=== PATIENT | female | born 1995 | race Caucasian/White ===

== ENCOUNTER 2016-10-29 20:56 | Emergency (ER) | payer BC ==
[2016-10-29 21:06] VITALS: O2SAT 98
[2016-10-29] MEDS ORDERED: Sodium Chloride 0.9% 1000 ML 1,000 ML IV STA (21:13)
--- NOTE | 2016-10-29 21:13 | ERPHSYRPT ---
- History of Present Illness Time Seen by Provider: 10/29/16 21:07 Source: patient Exam Limitations: no limitations Patient Subjective Stated Complaint: PT STS SICK X 1 WEEK, SORE THROAT, FEVER, EAR PAIN, CONGESTION, DRY COUGH, FEELING DIZZY-OFF BALANCE. STS UNABLE TO EAT OR DRINK DUE TO THROAT PAIN. DESCRIBES SAND PAPER - RATES PAIN 4/10. Triage Nursing Assessment: PT ALERT, ORIENTED, ANSWERS ALL QUESTIONS APPROPRIATELY. SKIN P/W/D, RESPS NON-LABORED. LUNG SOUNDS CTA BILAT NON- LABORED. HEART RRR UPON AUSCULTATION - TACHYCARDIC 130'S. THROAT APPEARS RED, NO EXUDATE NOTED. ORAL MUCOSA MOIST. Physician History: FOR THE PAST WEEK PT HAS HAD A SORE THROAT, NON-PRODUCTIVE COUGH, DIZZINESS, EARACHES, SUBJECTIVE FEVER AND OCCASIONAL FRONTAL HEADACHE. Allergies/Adverse Reactions: sulfamethoxazole [From Bactrim DS] Allergy (Severe, Verified 10/29/16 21:13) RAPID HEART RATE trimethoprim [From Bactrim DS] Allergy (Severe, Verified 10/29/16 21:13) RAPID HEART RATE diphenhydramine HCl [From Benadryl] Allergy (Intermediate, Verified 10/29/16 21: 13) "OVER-REACTS AND ACTS DRUNK" Home Medications: No Home Meds 1 [facility] 05/26/16 [History] Hx Tetanus, Diphtheria Vaccination/Date Given: Yes Hx Influenza Vaccination/Date Given: No Hx Pneumococcal Vaccination/Date Given: No - Review of Systems Constitutional: Fever Ears, Nose, & Throat: Ear Pain, Throat Pain Respiratory: Cough Neurological: Dizziness, Headache All Other Systems: Reviewed and Negative - Past Medical History Pertinent Past Medical History: Yes Neurological History: No Pertinent History ENT History: No Pertinent History Cardiac History: No Pertinent History Respiratory History: No Pertinent History Endocrine Medical History: No Pertinent History Musculoskeletal History: No Pertinent History GI Medical History: No Pertinent History History: No Pertinent History Psycho-Social History: Bipolar, Panic Disorder Other Medical History: EPTEIN RIDLEY VIRUS, HEART MURMUR - Past Surgical History Past Surgical History: No - Social History Smoking Status: Never smoker Exposure to second hand smoke: No Alcohol Use: None Drug Use: none Patient Lives Alone: No Significant Family History: no pertinent family hx - Female History Hx Last Menstrual Period: 06/2016 Hx Now: No (possibly; late; no protection; will follow up with LMD for testing) - Nursing Vital Signs Nursing Vital Signs: Initial Vital Signs Temperature 98.0 F Temperature Source Oral Pulse Rate 101 Respiratory Rate 18 Blood Pressure [Right Arm] 139/64 Pain Intensity 0 - Physical Exam General Appearance: alert Eye Exam: PERRL/EOMI, eyes nml inspection Ears, Nose, Throat Exam: TMs normal, dry mucous membranes, pharyngeal erythema Neck Exam: normal inspection Respiratory Exam: lungs clear Cardiovascular Exam: tachycardia Gastrointestinal/Abdomen Exam: soft, normal bowel sounds Back Exam: normal range of motion Extremity Exam: normal inspection, No pedal edema Neurologic Exam: alert, cooperative Skin Exam: warm, dry SpO2 Interpretation: normal SpO2: 98 Oxygen Delivery: Room Air - Course Nursing assessment & vital signs reviewed: Yes Ordered Tests: Active Orders 24 hr Category Date Time Status IV Insertion STAT Care 10/29/16 21:13 Active AMYLASE Stat Lab 10/29/16 21:45 Completed CBC W DIFF Stat Lab 10/29/16 21:45 Completed CMP Stat Lab 10/29/16 21:45 Completed CULTURE, THROAT Stat Lab 10/29/16 21:45 Received HCG QUALITATIVE,SERUM Stat Lab 10/29/16 21:45 Completed LIPASE Stat Lab 10/29/16 21:45 Completed MAGNESIUM Stat Lab 10/29/16 21:45 Completed [place] Screen Stat Lab 10/29/16 21:45 Completed STREP SCREEN-BETA A Stat Lab 10/29/16 21:45 Completed UA Stat Lab 10/29/16 21:13 Ordered Medication Summary Generic Name Dose Route Start Last Admin Trade Name Freq PRN Reason Stop Dose Admin Magnesium Oxide 400 mg 10/30/16 10:00 10/29/16 22:27 Mag-Ox 400 PO 11/29/16 09:59 400 mg BID YADY Administration Discontinued Medications Generic Name Dose Route Start Last Admin Trade Name Freq PRN Reason Stop Dose Admin Ceftriaxone Sodium/Dextrose 50 mls @ 100 mls/hr 10/29/16 21:15 10/29/16 21:21 Rocephin 1 Gm-D5w 50 Ml Bag IV 10/29/16 21:44 100 mls/hr STAT ONE Administration Sodium Chloride 1,000 mls @ 999 mls/hr 10/29/16 21:13 10/29/16 21:21 Sodium Chloride 0.9% 1000 Ml IV 10/29/16 22:13 999 mls/hr .Q1H1M STA Administration Sodium Chloride Confirm 10/29/16 21:20 Sodium Chloride 0.9% 1000 Ml Administered 10/29/16 21:21 Dose 1,000 mls @ ud .ROUTE .STK-MED ONE Ceftriaxone Sodium/Dextrose Confirm 10/29/16 21:20 Rocephin 1 Gm-D5w 50 Ml Bag Administered 10/29/16 21:21 Dose 50 mls @ ud IV .STK-MED ONE Ketorolac Tromethamine 30 mg 10/29/16 21:17 10/29/16 21:20 Toradol 30 Mg Injection IV 10/29/16 21:18 30 mg STAT ONE Administration Ketorolac Tromethamine Confirm 10/29/16 21:19 Toradol 30 Mg Injection Administered 10/29/16 21:20 Dose 30 mg .ROUTE .STK-MED ONE Magnesium Oxide Confirm 10/29/16 22:25 Mag-Ox 400 Administered 10/29/16 22:26 Dose 400 mg .ROUTE .STK-MED ONE Lab/Rad Data: Laboratory Result Diagrams 10/29/16 21:45 10/29/16 21:45 Laboratory Results 10/29/16 10/29/16 10/29/16 Range/Units 21:45 21:45 21:45 WBC (4.0-10.5) K/mm3 RBC (4.1-5.4) M/mm3 Hgb (12.0-16.0) gm/dl Hct (35-47) % MCV (78-100) fl MCH (26-32) pg MCHC (32-36) g/dl RDW (11.5-14.0) % Plt Count (150-450) K/mm3 MPV (6-9.5) fl Gran % (36.0-66.0) % Lymphocytes % (24.0-44.0) % Monocytes % (0.0-12.0) % Eosinophils % (0.00-5.0) % Basophils % (0.0-0.4) % Basophils # (0-0.4) Sodium (136-145) mEq/L Potassium (3.5-5.1) mEq/L Chloride (98-107) mEq/L Carbon Dioxide (21-32) mEq/L Anion Gap (5-15) MEQ/L BUN (9-20) mg/dL Creatinine (0.55-1.30) mg/dl Estimated GFR ML/MIN Glucose (70-110) MG/DL Calcium (8.5-10.1) mg/dL Magnesium (1.8-2.4) mg/dL Total Bilirubin (0.2-1.0) mg/dL AST (15-37) U/L ALT (12-78) U/L Alkaline Phosphatase (46-116) U/L Serum Total Protein (6.4-8.2) gm/dL Albumin (3.4-5.0) g/dL Amylase (25-115) U/L Lipase (73-393) U/L Serum , Qual NEGATIVE (Negative) Monoscreen NEGATIVE (Negative) Streptococcus Screen NEGATIVE (Negative) 10/29/16 10/29/16 Range/Units 21:45 21:45 WBC 12.1 H (4.0-10.5) K/mm3 RBC 4.81 (4.1-5.4) M/mm3 Hgb 13.8 (12.0-16.0) gm/dl Hct 42.1 (35-47) % MCV 87.5 (78-100) fl MCH 28.7 (26-32) pg MCHC 32.8 (32-36) g/dl RDW 13.0 (11.5-14.0) % Plt Count 385 (150-450) K/mm3 MPV 8.8 (6-9.5) fl Gran % 67.8 H (36.0-66.0) % Lymphocytes % 20.7 L (24.0-44.0) % Monocytes % 9.6 (0.0-12.0) % Eosinophils % 1.7 (0.00-5.0) % Basophils % 0.2 (0.0-0.4) % Basophils # 0.02 (0-0.4) Sodium 141 (136-145) mEq/L Potassium 4.0 (3.5-5.1) mEq/L Chloride 104 (98-107) mEq/L Carbon Dioxide 24.2 (21-32) mEq/L Anion Gap 17.2 H (5-15) MEQ/L BUN 9 (9-20) mg/dL Creatinine 0.77 (0.55-1.30) mg/dl Estimated GFR > 60 ML/MIN Glucose 95 (70-110) MG/DL Calcium 9.0 (8.5-10.1) mg/dL Magnesium 1.7 L (1.8-2.4) mg/dL Total Bilirubin 0.2 (0.2-1.0) mg/dL AST 15 (15-37) U/L ALT 30 (12-78) U/L Alkaline Phosphatase 107 (46-116) U/L Serum Total Protein 7.6 (6.4-8.2) gm/dL Albumin 3.8 (3.4-5.0) g/dL Amylase 52 (25-115) U/L Lipase 112 (73-393) U/L Serum , Qual (Negative) Monoscreen (Negative) Streptococcus Screen (Negative) - Departure Time of Disposition: 22:37 Departure Disposition: Home Clinical Impression: PHARYNGITIS, MILD HYPOMAGNESEMIA, MILD DEHYDRATION Condition: Fair Critical Care Time: No Instructions: Pharyngitis/Tonsillopharyngitis -- Adult Additional Instructions: FOLLOW UP WITH PRIVATE DOCTOR TOMORROW. DRINK PLENTY OF FLUIDS. Prescriptions: Ibuprofen 100 mg/5 ml [Motrin 100 MG/5 ML] 400 mg PO Q6H PRN PRN #120 bottle PRN Reason: Pain And/Or Fever Cefdinir 250 mg/5 ml [Omnicef 250 mg/5 ml] 250 mg PO BID #100 ml
[2016-10-29] MEDS ORDERED: ROCEPHIN 1 Gm-D5w 50 ml Bag** 50 ML IV ONE ×2 (21:15→21:20)
[2016-10-29] MEDS ORDERED: TORAdol 30 mg Injection IV ONE (21:17)
[2016-10-29] MEDS ORDERED: TORAdol 30 mg Injection ONE (21:19)
[2016-10-29] MEDS ORDERED: Sodium Chloride 0.9% 1000 ML 1,000 ML ONE (21:20)
[2016-10-29 21:49] LABS: BASOPHIL % 0.2 % (0.0-0.4); Eosinophil % 1.7 % (0.00-5.0); Granulocytes % 67.8 % (36.0-66.0); Lymphocytes % 20.7 % (24.0-44.0); Mean Cell Volume 87.5 fl (78-100); Mean Corpuscular Hemoglobin 28.7 pg (26-32); Mean Platelet Volume 8.8 fl (6-9.5); Monocytes % 9.6 % (0.0-12.0); Platelet Count 385 K/mm3 (150-450); Red Blood Count 4.81 M/mm3 (4.1-5.4); White Blood Count 12.1 K/mm3 (4.0-10.5)
[2016-10-29 22:10] LABS: ALBUMIN 3.8 g/dL (3.4-5.0); ALKALINE PHOSPHATASE 107 U/L (46-116); ANION GAP 17.2 MEQ/L (5-15); BILIRUBIN,TOTAL 0.2 mg/dL (0.2-1.0); BLOOD UREA NITROGEN 9 mg/dL (9-20); CHLORIDE 104 mEq/L (98-107); Carbon Dioxide 24.2 mEq/L (21-32); Glucose 95 MG/DL (70-110); LIPASE 112 U/L (73-393); MAGNESIUM 1.7 mg/dL (1.8-2.4); SGOT/AST 15 U/L (15-37); SGPT/ALT 30 U/L (12-78); SODIUM 141 mEq/L (136-145); Total Protein 7.6 gm/dL (6.4-8.2)
[2016-10-29] MEDS ORDERED: MAG-OX 400 ONE (22:25)
[2016-10-29 22:52] VITALS: BP 123/95; PULSE 98
[2016-10-30] MEDS ORDERED: MAG-OX 400 PO SCH (10:00)
== END 2016-10-29 22:50 | disposition home or self-care (01) ==
LOC: ED 20:56
DX: J02.9 Acute pharyngitis, unspecified (principal); E83.42 Hypomagnesemia; E86.0 Dehydration
CPT/HCPCS: 36000; 36415; 80053; 82150; 83690; 83735; 84703; 85025; 86308; 87070; 87430; 96360; 96365; 96374; 99283; J0696; J1885

== ENCOUNTER 2016-11-08 20:06 | Emergency (ER) | payer BC ==
[2016-11-08 20:16] VITALS: O2SAT 96
[2016-11-08] MEDS ORDERED: Sodium Chloride 0.9% 1000 ML 1,000 ML IV SCH (21:00)
--- NOTE | 2016-11-08 21:02 | ERPHSYRPT ---
- History of Present Illness Time Seen by Provider: 11/08/16 20:30 Source: patient, family Exam Limitations: clinical condition Patient Subjective Stated Complaint: pt states while she was eating supper she started feeling like her heart was beating out of her chest. states it was sudden onset, usually goes away on its own but did not this time Triage Nursing Assessment: pt alert and oriented. answers qeustions approp. skin pink warm and dry. respirations even and nonlabored. heart sounds wnl. heart rate even and tachy at 123. pt denies chest pain or pressure. Physician History: PATIENT COMPLAINS OF PALPITATIONS OVER THE PAST 7 MONTHS. HAS ASSOCIATED DIZZINESS AND FATIQUE ON OCCASION. DENIES DYSPNEA, CHEST PAIN. HAS SCHEDULED CARDIOLOGY APPOINTMENT IN 3 WEEKS. Timing/Duration: other (MONTHS) Activities at Onset: none Quality: other (DENIES CHEST PAIN) Severity of Pain-Max: none Severity of Pain-Current: none Modifying Factors: Improves With: nothing Nitro Today/Relief: no nitro taken today Aspirin Treatment Today: no aspirin today Associated Symptoms: other (DIZZINESS) Prior Chest Pain/Cardiac Workup: no prior chest pain Allergies/Adverse Reactions: sulfamethoxazole [From Bactrim DS] Allergy (Severe, Verified 11/08/16 20:25) RAPID HEART RATE trimethoprim [From Bactrim DS] Allergy (Severe, Verified 11/08/16 20:25) RAPID HEART RATE diphenhydramine HCl [From Benadryl] Allergy (Intermediate, Verified 11/08/16 20: 25) "OVER-REACTS AND ACTS DRUNK" Home Medications: No Home Meds 1 [facility] 05/26/16 [History] Hx Tetanus, Diphtheria Vaccination/Date Given: Yes Hx Influenza Vaccination/Date Given: No Hx Pneumococcal Vaccination/Date Given: No Immunizations Up to Date: Yes - Review of Systems Constitutional: No Fever, No Chills Eyes: No Symptoms Ears, Nose, & Throat: No Symptoms Respiratory: No Cough, No Dyspnea Cardiac: Palpitations, No Chest Pain, No Edema, No Syncope Abdominal/Gastrointestinal: No Symptoms, No Abdominal Pain, No Nausea, No Vomiting, No Diarrhea Genitourinary Symptoms: No Symptoms, No Dysuria Musculoskeletal: No Symptoms, No Back Pain, No Neck Pain Skin: No Symptoms, No Rash Neurological: No Dizziness, No Focal Weakness, No Sensory Changes Psychological: No Symptoms Endocrine: No Symptoms All Other Systems: Reviewed and Negative - Past Medical History Pertinent Past Medical History: Yes Neurological History: No Pertinent History ENT History: No Pertinent History Cardiac History: No Pertinent History Respiratory History: No Pertinent History Endocrine Medical History: No Pertinent History Musculoskeletal History: No Pertinent History GI Medical History: No Pertinent History History: No Pertinent History Psycho-Social History: Anxiety, Bipolar, Panic Disorder Other Medical History: ALFREDO RIDLEY VIRUS, HEART MURMUR - Past Surgical History Past Surgical History: No - Social History Smoking Status: Never smoker Exposure to second hand smoke: No Alcohol Use: None Drug Use: none Patient Lives Alone: No Significant Family History: no pertinent family hx - Female History Hx Last Menstrual Period: june Hx Now: No (possibly; late; no protection; will follow up with LMD for testing) - Nursing Vital Signs Temperature: 97.5 F Temperature Source: Oral Pulse Rate: 123 Respiratory Rate: 18 Pain Intensity: 0 - Physical Exam General Appearance: no apparent distress, alert Eye Exam: PERRL/EOMI, eyes nml inspection Ears, Nose, Throat Exam: normal ENT inspection, moist mucous membranes Neck Exam: normal inspection, non-tender, supple Respiratory Exam: normal breath sounds, lungs clear, No respiratory distress Cardiovascular Exam: regular rate/rhythm, normal heart sounds, tachycardia, No edema Gastrointestinal/Abdomen Exam: soft, normal bowel sounds, No tenderness, No mass Back Exam: normal inspection, No CVA tenderness, No vertebral tenderness Extremity Exam: normal inspection, normal range of motion Neurologic Exam: alert, oriented x 3, cooperative, normal mood/affect, nml cerebellar function, sensation nml, No motor deficits Skin Exam: normal color, warm, dry Lymphatic Exam: No adenopathy SpO2: 96 Oxygen Delivery: Room Air - Course EKG Interpreted by Me: RATE, Sinus Rhythm, NORMAL AXIS (RATE 105) Ordered Tests: Active Orders 24 hr Category Date Time Status Home School Teacher STAT Care 11/08/16 20:54 Active EKG-ER Only STAT Care 11/08/16 20:54 Active IV Insertion STAT Care 11/08/16 20:54 Active Orthostatic Vital Signs STAT Care 11/08/16 20:56 Active BMP Stat Lab 11/08/16 21:17 Completed CBC W DIFF Stat Lab 11/08/16 21:17 Completed MAGNESIUM Stat Lab 11/08/16 21:17 Completed UA Stat Lab 11/08/16 21:18 Completed Medication Summary Generic Name Dose Route Start Last Admin Trade Name Jose Luis PRN Reason Stop Dose Admin Sodium Chloride 1,000 mls @ 500 mls/hr 11/08/16 21:00 11/08/16 21:20 Sodium Chloride 0.9% 1000 Ml IV 12/08/16 20:59 500 mls/hr .Q2H YADY Administration Discontinued Medications Generic Name Dose Route Start Last Admin Trade Name Jose Luis PRN Reason Stop Dose Admin Sodium Chloride Confirm 11/08/16 21:19 Sodium Chloride 0.9% 1000 Ml Administered 11/08/16 21:20 Dose 1,000 mls @ ud .ROUTE .STK-MED ONE Metoprolol Tartrate 2.5 mg 11/08/16 21:35 11/08/16 21:41 Lopressor 5 Mg/5 Ml Injection IV 11/08/16 21:36 2.5 mg STAT ONE Administration Metoprolol Tartrate Confirm 11/08/16 21:40 Lopressor 5 Mg/5 Ml Injection Administered 11/08/16 21:41 Dose 5 mg IV .STK-MED ONE Lab/Rad Data: Laboratory Result Diagrams 11/08/16 21:17 11/08/16 21:17 Laboratory Results 11/08/16 11/08/16 11/08/16 Range/Units 21:18 21:17 21:17 WBC 10.1 (4.0-10.5) K/mm3 RBC 4.67 (4.1-5.4) M/mm3 Hgb 13.7 (12.0-16.0) gm/dl Hct 40.7 (35-47) % MCV 87.2 (78-100) fl MCH 29.3 (26-32) pg MCHC 33.7 (32-36) g/dl RDW 13.0 (11.5-14.0) % Plt Count 438 (150-450) K/mm3 MPV 9.0 (6-9.5) fl Gran % 64.5 (36.0-66.0) % Lymphocytes % 24.6 (24.0-44.0) % Monocytes % 9.3 (0.0-12.0) % Eosinophils % 1.4 (0.00-5.0) % Basophils % 0.2 (0.0-0.4) % Basophils # 0.02 (0-0.4) Sodium 143 (136-145) mEq/L Potassium 3.8 (3.5-5.1) mEq/L Chloride 106 (98-107) mEq/L Carbon Dioxide 26.5 (21-32) mEq/L Anion Gap 13.9 (5-15) MEQ/L BUN 13 (9-20) mg/dL Creatinine 0.63 (0.55-1.30) mg/dl Estimated GFR > 60 ML/MIN Glucose 103 (70-110) MG/DL Calcium 9.5 (8.5-10.1) mg/dL Magnesium 1.9 (1.8-2.4) mg/dL Ur Collection Type CLEAN CATCH Urine Color YELLOW (YELLOW) Urine Appearance CLEAR (CLEAR) Urine pH 7.0 (5-6) Ur Specific [place] 1.015 (1.005-1.025) Urine Protein NEGATIVE (Negative) Urine Glucose (UA) NEGATIVE (NEGATIVE) mg/dL Urine Ketones NEGATIVE (NEGATIVE) Urine Nitrite NEGATIVE (NEGATIVE) Urine Bilirubin NEGATIVE (NEGATIVE) Urine Urobilinogen 0.2 (0-1) mg/dL Urine WBC (Auto) NEGATIVE (NEGATIVE) Urine RBC (Auto) NEGATIVE (0-5) Demar/ul Specimen Received [id number] - Progress Progress: improved Progress Note: 11/08/16 22:34 PATIENT GIVEN IV FLUIDS, NORMAL SALINE 500ML/HR, LOPRESSOR 2.5MG IV, PULSE IMPROVED TO RATE 78 Counseled pt/family regarding: lab results, diagnosis, need for follow-up - Departure Time of Disposition: 22:40 Departure Disposition: Home Clinical Impression: PALPITATIONS Condition: Stable Critical Care Time: No Additional Instructions: FOLLOWUP WITH YOUR FAMILY PHYSICIAN FOR EARLIER CARDIOLOGY APPOINTMENT. TOPROL XL 25MG, TAKE I/2 TABLET DAILY. RETURN TO EMERGENCY ROOM FOR SYMPTOMS OF DIZZINESS OR FATIQUE. Prescriptions: Metoprolol Succinate 25 mg Xl* [Toprol-Xl 25MG Tablets] 12.5 mg PO DAILY #15 tab
[2016-11-08] MEDS ORDERED: Sodium Chloride 0.9% 1000 ML 1,000 ML ONE (21:19)
[2016-11-08 21:22] LABS: BASOPHIL % 0.2 % (0.0-0.4); Eosinophil % 1.4 % (0.00-5.0); Granulocytes % 64.5 % (36.0-66.0); Lymphocytes % 24.6 % (24.0-44.0); Mean Cell Volume 87.2 fl (78-100); Mean Corpuscular Hemoglobin 29.3 pg (26-32); Monocytes % 9.3 % (0.0-12.0); Platelet Count 438 K/mm3 (150-450); Red Blood Count 4.67 M/mm3 (4.1-5.4); White Blood Count 10.1 K/mm3 (4.0-10.5)
[2016-11-08 21:34] LABS: COMPLETE URINE MICROSCOPIC? NO; Collection Type CLEAN CATCH
[2016-11-08] MEDS ORDERED: LOPRESSOR 5 MG/5 ML INJECTION IV ONE ×2 (21:35→21:40)
[2016-11-08 21:44] LABS: ANION GAP 13.9 MEQ/L (5-15); BLOOD UREA NITROGEN 13 mg/dL (9-20); CHLORIDE 106 mEq/L (98-107); Carbon Dioxide 26.5 mEq/L (21-32); Glucose 103 MG/DL (70-110); MAGNESIUM 1.9 mg/dL (1.8-2.4); Potassium 3.8 mEq/L (3.5-5.1); SODIUM 143 mEq/L (136-145)
[2016-11-08 22:50] VITALS: BP 116/72; PULSE 89
== END 2016-11-08 22:50 | disposition home or self-care (01) ==
LOC: ED 20:06
DX: R00.2 Palpitations (principal); R42 Dizziness and giddiness
CPT/HCPCS: 36000; 36415; 80048; 81002; 83735; 85025; 93005; 93041; 96360; 96361; 96374; 99283; 99284

== ENCOUNTER 2016-11-14 16:51 | Emergency (ER) | payer BC ==
--- NOTE | 2016-11-14 17:43 | ERPHSYRPT ---
- History of Present Illness Time Seen by Provider: 11/14/16 16:57 Source: patient, family (mother) Patient Subjective Stated Complaint: pt co fast heart rate for an hour today, has had this before,seeing [facility] cardiology november 27 ,,no caffine today Triage Nursing Assessment: pt alert and in no distress, resp easy, chest clear Physician History: CC: heart racing hx: 21 y/o healthy female patient of Dr Castellanos. She has hx of feeling palpitations, shortness of breath, hot flash, and tingling since last summer. She awoke today with feeling of hot, heart racing, and short of breath. It lasted for about 10 minutes and gradually was better. She was worried. She has been seen in ER a few times. All tests have been normal in the past including, EKG, TSH, chemistries, blood counts, CT chest. She had fairly unremarkable holter. She is scheduled for cardiac consult with Dr Domínguez November 27. She feels better now. LMP June. Allergies/Adverse Reactions: sulfamethoxazole [From Bactrim DS] Allergy (Severe, Verified 11/14/16 17:02) RAPID HEART RATE trimethoprim [From Bactrim DS] Allergy (Severe, Verified 11/14/16 17:02) RAPID HEART RATE diphenhydramine HCl [From Benadryl] Allergy (Intermediate, Verified 11/14/16 17: 02) "OVER-REACTS AND ACTS DRUNK" Home Medications: No Home Meds 1 [facility] 05/26/16 [History] Hx Tetanus, Diphtheria Vaccination/Date Given: Yes Hx Influenza Vaccination/Date Given: No Hx Pneumococcal Vaccination/Date Given: No Immunizations Up to Date: Yes - Review of Systems Constitutional: No Fever, No Chills, No Malaise, No Weakness Eyes: No Symptoms Ears, Nose, & Throat: No Symptoms Respiratory: Dyspnea (during episodes), No Cough Cardiac: Chest Pain (during episodes), Palpitations, No Syncope Abdominal/Gastrointestinal: No Abdominal Pain, No Nausea, No Vomiting, No Diarrhea Skin: No Rash Neurological: No Dizziness, No Focal Weakness, No Headache, No Parasthesia Psychological: No Alcohol Abuse, No Drug Abuse, No Anxiety, No Depression, No Suicidal Ideations, No Emotional Lability, No Hallucinations All Other Systems: Reviewed and Negative - Past Medical History Pertinent Past Medical History: Yes Neurological History: No Pertinent History ENT History: No Pertinent History Cardiac History: No Pertinent History Respiratory History: No Pertinent History Endocrine Medical History: No Pertinent History Musculoskeletal History: No Pertinent History GI Medical History: No Pertinent History History: No Pertinent History Psycho-Social History: Anxiety, Bipolar, Panic Disorder Other Medical History: fast heart rate - Past Surgical History Past Surgical History: No - Social History Smoking Status: Never smoker Exposure to second hand smoke: No Alcohol Use: None Drug Use: none Patient Lives Alone: No Significant Family History: no pertinent family hx - Female History Hx Last Menstrual Period: jun Hx Now: No (possibly; late; no protection; will follow up with LMD for testing) - Nursing Vital Signs Nursing Vital Signs: Initial Vital Signs Temperature 98.0 F Temperature Source Oral Pulse Rate 87 Respiratory Rate 16 Blood Pressure [Right Arm] 93/68 Pain Intensity 0 - Physical Exam General Appearance: alert, obese Eye Exam: PERRL/EOMI Ears, Nose, Throat Exam: normal ENT inspection, moist mucous membranes Neck Exam: normal inspection, non-tender, supple Respiratory Exam: normal breath sounds, lungs clear, No respiratory distress Cardiovascular Exam: regular rate/rhythm, No murmur, No friction rub, No gallop Gastrointestinal/Abdomen Exam: soft, No tenderness, No distention Back Exam: normal inspection, normal range of motion Extremity Exam: normal inspection, normal range of motion Neurologic Exam: alert, oriented x 3, cooperative, sensation nml, No motor deficits Skin Exam: warm, dry, No rash SpO2: 99 Oxygen Delivery: Room Air - Course Nursing assessment & vital signs reviewed: Yes EKG Interpreted by Me: RATE (120), Sinus Tach, NORMAL AXIS, NORMAL INTERVALS ( QTc 453, VA 136), NORMAL QRS, NORMAL ST-T Ordered Tests: Active Orders 24 hr Category Date Time Status Clean Catch Urine Specimen STAT Care 11/14/16 17:34 Active EKG-ER Only STAT Care 11/14/16 16:57 Active Orthostatic Vital Signs STAT Care 11/14/16 18:15 Active Orthostatic Vital Signs STAT Care 11/14/16 18:16 Active HCG,QUALITATIVE URINE Stat Lab 11/14/16 17:30 Completed UA Stat Lab 11/14/16 17:30 Completed Urine Triage Profile Stat Lab 11/14/16 17:30 Completed Lab/Rad Data: Laboratory Results 11/14/16 11/14/1617 Range/Units 17:30 17:30 17:30 Ur Collection Type CLEAN CATCH Urine Color YELLOW (YELLOW) Urine Appearance CLEAR (CLEAR) Urine pH 6.0 (5-6) Ur Specific [employer] 1.025 (1.005-1.025) Urine Protein NEGATIVE (Negative) Urine Glucose (UA) NEGATIVE (NEGATIVE) mg/dL Urine Ketones NEGATIVE (NEGATIVE) Urine Nitrite NEGATIVE (NEGATIVE) Urine Bilirubin NEGATIVE (NEGATIVE) Urine Urobilinogen 0.2 (0-1) mg/dL Urine WBC (Auto) NEGATIVE (NEGATIVE) Urine RBC (Auto) NEGATIVE (0-5) Demar/ul Urine HCG, Qual NEGATIVE (Negative) Urine Opiates Level NEG. (NEGATIVE) Ur Methadone NEG. (NEGATIVE) Urine Barbiturates NEG. (NEGATIVE) Ur Phencyclidine (PCP) NEG. (NEGATIVE) Urine Amphetamine NEG. (NEGATIVE) U Benzodiazepine Level NEG. (NEGATIVE) Urine Cocaine NEG. (NEGATIVE) Urine Marijuana (THC) NEG. (NEGATIVE) Specimen Received 11/14/16:1730 - Progress Progress Note: 11/14/16 17:44 Reviewed symptoms and prior labs and testing with pt and mother. This likely represents anxiety/panic disorder. She does warrant echo and cardiac consult. Would not increase toprol as BP borderline. Advised she speak to Dr Castellanos tomorrow as scheduled to consider anxiety treatment or referral for cognitive behavioral therapy. They decline addl tests norw as HE has improved to 85 on the monitor and in NSR. 11/14/16 18:25 Orthostatics stable. She wants to go home. Reviewed urine results. Will release with instructions. Counseled pt/family regarding: lab results, diagnosis, need for follow-up - Departure Time of Disposition: 18:26 Departure Disposition: Home Clinical Impression: Palpitations, Panic disorder Condition: Stable Critical Care Time: No Referrals: CHRIST CASTELLANOS [Primary Care Provider] - Instructions: Arrhythmias, Panic Disorder Additional Instructions: No driving and stay with family. Follow up tomorrow with Dr Castellanos office as scheduled. See Dr Domínguez as scheduled. Return for problems or concerns. Avoid caffeine products.
[2016-11-14 17:58] LABS: COMPLETE URINE MICROSCOPIC? NO; Collection Type CLEAN CATCH
[2016-11-14 18:58] VITALS: BP 126/48; PULSE 86; O2SAT 98
== END 2016-11-14 18:57 | disposition home or self-care (01) ==
LOC: ED 16:51
DX: R00.2 Palpitations (principal); F41.0 Panic disorder [episodic paroxysmal anxiety]; R06.02 Shortness of breath
CPT/HCPCS: 80307; 81002; 84703; 93005; 99283; 99284

== ENCOUNTER 2017-06-11 15:45 | Emergency (ER) | payer BC ==
--- NOTE | 2017-06-11 16:10 | ERPHSYRPT ---
- History of Present Illness Time Seen by Provider: 06/11/17 15:58 Source: patient Exam Limitations: no limitations Patient Subjective Stated Complaint: PT REPROTS GENERAL WEAKNESS FOR 2 WKS- DENIES N/V/D-DENIES PAIN-DENIES SOB OR COUGH Triage Nursing Assessment: PT PALE WARM ET [facility] NONLABORED-NO COUGH NOTED-AMBULATORY WITH NO DIFFICULTY-PUPILS REACTIVE Physician History: general malaise for several days; some URI symptoms; no fever; around several kids with illness; some nausea; no emesis; some UTI symptoms and vag d/c; no std ; no period since january; trying to get ; bms slight loose; [place] travel on city [place] Timing/Duration: week(s) (2), gradual onset Severity: mild Modifying Factors: Improves With: nothing Associated Symptoms: nausea, chills, malaise, weakness Allergies/Adverse Reactions: sulfamethoxazole [From Bactrim DS] Allergy (Severe, Verified 06/11/17 15:54) RAPID HEART RATE trimethoprim [From Bactrim DS] Allergy (Severe, Verified 06/11/17 15:54) RAPID HEART RATE diphenhydramine HCl [From Benadryl] Allergy (Intermediate, Verified 06/11/17 15: 54) "OVER-REACTS AND ACTS DRUNK" Home Medications: No Home Meds [No Home Meds] 1 [facility] UD 05/26/16 [History] Hx Tetanus, Diphtheria Vaccination/Date Given: Yes Hx Influenza Vaccination/Date Given: No Hx Pneumococcal Vaccination/Date Given: No Immunizations Up to Date: Yes - Review of Systems Constitutional: Chills, Malaise Eyes: No Symptoms Ears, Nose, & Throat: Nose Congestion, Sinus Drainage, No Throat Pain Respiratory: No Cough, No Dyspnea, No Wheezing Cardiac: No Chest Pain, No Palpitations, No Syncope Abdominal/Gastrointestinal: Nausea, Diarrhea (slight loose), No Abdominal Pain, No Vomiting Genitourinary Symptoms: Dysuria, Frequency, Vaginal Discharge (yeast), No Hematuria, No Incontinence, No Flank Pain, No Vaginal Bleeding Musculoskeletal: Myalgias, No Back Pain, No Fall, No Injury Skin: No Symptoms Neurological: No Symptoms Psychological: No Symptoms, Anxiety, No Alcohol Abuse, No Suicidal Ideations Endocrine: No Symptoms Hematologic/Lymphatic: No Symptoms Immunological/Allergic: No Symptoms - Past Medical History Pertinent Past Medical History: Yes Neurological History: No Pertinent History ENT History: No Pertinent History Cardiac History: No Pertinent History Respiratory History: No Pertinent History Endocrine Medical History: No Pertinent History Musculoskeletal History: No Pertinent History GI Medical History: No Pertinent History History: No Pertinent History Psycho-Social History: Anxiety, Bipolar, Panic Disorder Other Medical History: fast heart rate - Past Surgical History Past Surgical History: No - Social History Smoking Status: Never smoker Exposure to second hand smoke: No Alcohol Use: None Drug Use: none Patient Lives Alone: No Significant Family History: no pertinent family hx - Female History Hx Last Menstrual Period: JANUARY 2017 Hx Now: No (possibly; late; no protection; will follow up with LMD for testing) - Nursing Vital Signs Nursing Vital Signs: Initial Vital Signs Temperature 98.5 F 06/11/17 15:53 Pulse Rate 105 H 06/11/17 15:53 Respiratory Rate 20 06/11/17 15:53 Blood Pressure 133/71 06/11/17 15:53 O2 Sat by Pulse Oximetry 96 06/11/17 15:53 Pain Scale Pain Intensity 0 - Physical Exam General Appearance: mild distress, alert, anxiety, obese Eye Exam: PERRL/EOMI, eyes nml inspection, No photophobia Ears, Nose, Throat Exam: TMs normal, moist mucous membranes, pharyngeal erythema , tonsillar exudate Neck Exam: normal inspection, non-tender, supple, full range of motion, No meningismus, No JVD, No lymphadenopathy Respiratory Exam: normal breath sounds, lungs clear, airway intact, No chest tenderness, No respiratory distress, No rhonchi, No wheezing Cardiovascular Exam: regular rate/rhythm, normal heart sounds, tachycardia (104) , capillary refill <2 sec, No murmur Gastrointestinal/Abdomen Exam: soft, normal bowel sounds, No tenderness, No distention, No guarding, No rebound, No organomegaly Pelvic Exam: deferred Rectal Exam: deferred Back Exam: normal inspection, normal range of motion, No CVA tenderness, No vertebral tenderness, No rash Extremity Exam: normal inspection, normal range of motion, No pelvis stable, No cedrick's sign, No pedal edema Neurologic Exam: alert, oriented x 3, cooperative, regulatory assistant II-XII nml as tested, normal mood/affect, nml cerebellar function, nml station & gait, sensation nml Skin Exam: normal color, warm, dry, No rash, No petechiae, No cyanosis Lymphatic Exam: No adenopathy SpO2 Interpretation: normal SpO2: 96 Oxygen Delivery: Room Air - Course Nursing assessment & vital signs reviewed: Yes Ordered Tests: Active Orders 24 hr Category Date Time Status Cath for Specimen-Straight STAT Care 06/11/17 16:04 Active Pulse Oximetry (ED) STAT Care 06/11/17 16:03 Active BMP Stat Lab 06/11/17 16:05 Completed CBC W DIFF Stat Lab 06/11/17 16:03 Completed CULTURE,URINE Stat Lab 06/11/17 16:15 Received HCG QUALITATIVE,SERUM Stat Lab 06/11/17 16:15 Completed UA W/ MICROSCOPIC Stat Lab 06/11/17 16:15 Completed Lab/Rad Data: Laboratory Result Diagrams 06/11/17 16:03 06/11/17 16:05 Laboratory Results 06/11/17 06/11/17 06/11/17 Range/Units 16:15 16:15 16:05 WBC (4.0-10.5) K/mm3 RBC (4.1-5.4) M/mm3 Hgb (12.0-16.0) gm/dl Hct (35-47) % MCV (78-100) fl MCH (26-32) pg MCHC (32-36) g/dl RDW (11.5-14.0) % Plt Count (150-450) K/mm3 MPV (6-9.5) fl Gran % (36.0-66.0) % Lymphocytes % (24.0-44.0) % Monocytes % (0.0-12.0) % Eosinophils % (0.00-5.0) % Basophils % (0.0-0.4) % Basophils # (0-0.4) Sodium 141 (136-145) mEq/L Potassium 3.6 (3.5-5.1) mEq/L Chloride 106 (98-107) mEq/L Carbon Dioxide 22.7 (21-32) mEq/L Anion Gap 16.3 H (5-15) MEQ/L BUN 11 (9-20) mg/dL Creatinine 0.71 (0.55-1.30) mg/dl Estimated GFR > 60 ML/MIN Glucose 95 (70-110) MG/DL Calcium 9.6 (8.5-10.1) mg/dL Serum , Qual NEGATIVE (Negative) Ur Collection Type VOID Urine Color YELLOW (YELLOW) Urine Appearance CLEAR (CLEAR) Urine pH 5.0 (5-6) Ur Specific Maybell 1.010 (1.005-1.025) Urine Protein NEGATIVE (Negative) Urine Ketones NEGATIVE (NEGATIVE) Urine Blood NEGATIVE (0-5) Demar/ul Urine Nitrite NEGATIVE (NEGATIVE) Urine Bilirubin NEGATIVE (NEGATIVE) Urine Urobilinogen NORMAL (0-1) mg/dL Ur Leukocyte Esterase 1+ (NEGATIVE) Urine Microscopic WBC 10-15 (0-5) /HPF Ur Epithelial Cells FEW (FEW) /HPF Urine Bacteria MODERATE (NEGATIVE) /HPF Urine Mucus MODERATE (NEGATIVE) /HPF Urine Glucose NEGATIVE (NEGATIVE) mg/dL Influenza Type A Ag (NEGATIVE) Influenza Type B Ag (NEGATIVE) RSV (PCR) (Negative) Specimen Received 06/11/17 [id number] 06/11/17 06/11/17 Range/Units 16:05 16:03 WBC 9.0 (4.0-10.5) K/mm3 RBC 4.78 (4.1-5.4) M/mm3 Hgb 14.0 (12.0-16.0) gm/dl Hct 41.0 (35-47) % MCV 85.8 (78-100) fl MCH 29.3 (26-32) pg MCHC 34.1 (32-36) g/dl RDW 13.2 (11.5-14.0) % Plt Count 405 (150-450) K/mm3 MPV 9.0 (6-9.5) fl Gran % 67.6 H (36.0-66.0) % Lymphocytes % 22.9 L (24.0-44.0) % Monocytes % 8.4 (0.0-12.0) % Eosinophils % 0.8 (0.00-5.0) % Basophils % 0.3 (0.0-0.4) % Basophils # 0.03 (0-0.4) Sodium (136-145) mEq/L Potassium (3.5-5.1) mEq/L Chloride (98-107) mEq/L Carbon Dioxide (21-32) mEq/L Anion Gap (5-15) MEQ/L BUN (9-20) mg/dL Creatinine (0.55-1.30) mg/dl Estimated GFR ML/MIN Glucose (70-110) MG/DL Calcium (8.5-10.1) mg/dL Serum , Qual (Negative) Ur Collection Type Urine Color (YELLOW) Urine Appearance (CLEAR) Urine pH (5-6) Ur Specific Maybell (1.005-1.025) Urine Protein (Negative) Urine Ketones (NEGATIVE) Urine Blood (0-5) Demar/ul Urine Nitrite (NEGATIVE) Urine Bilirubin (NEGATIVE) Urine Urobilinogen (0-1) mg/dL Ur Leukocyte Esterase (NEGATIVE) Urine Microscopic WBC (0-5) /HPF Ur Epithelial Cells (FEW) /HPF Urine Bacteria (NEGATIVE) /HPF Urine Mucus (NEGATIVE) /HPF Urine Glucose (NEGATIVE) mg/dL Influenza Type A Ag NEGATIVE (NEGATIVE) Influenza Type B Ag NEGATIVE (NEGATIVE) RSV (PCR) NEGATIVE (Negative) Specimen Received - Progress Progress: improved, re-examined Progress Note: 06/11/17 16:11 will get labs and check urine and recheck 06/11/17 17:02 recheck and mother at bedside;ua shows infection; other labs ok; reviewed results and discussed treatment plan; instructions given 06/11/17 17:25 rsp panel neg Counseled pt/family regarding: lab results, diagnosis, need for follow-up - Departure Time of Disposition: 17:03 Departure Disposition: Home Clinical Impression: Anxiety, UTI (urinary tract infection) Condition: Stable Critical Care Time: No Referrals: CHRIST CASTELLANOS [Primary Care Provider] - Instructions: Urinary Tract Infection (UTI) Additional Instructions: encourage fluid hydration Follow-up with family doctor as directed. Call for appointment. Return if any problems. If you smoke please stop. Call or follow up with your family doctor for assistance if you need it to stop. Please wear your seatbelt when driving. Have a nice day. Thank you for allowing us to participate in your care today. :o) Dr Arjun Townsend Prescriptions: Cephalexin Mh 250 mg [Keflex 250 mg] 250 mg PO QID #40 capsule
[2017-06-11 16:13] LABS: BASOPHIL % 0.3 % (0.0-0.4); Eosinophil % 0.8 % (0.00-5.0); Granulocytes % 67.6 % (36.0-66.0); Lymphocytes % 22.9 % (24.0-44.0); Mean Cell Volume 85.8 fl (78-100); Mean Corpuscular Hemoglobin 29.3 pg (26-32); Monocytes % 8.4 % (0.0-12.0); Platelet Count 405 K/mm3 (150-450); Red Blood Count 4.78 M/mm3 (4.1-5.4); Red Cell Distribution Width 13.2 % (11.5-14.0)
[2017-06-11 16:33] LABS: Bilirubin NEGATIVE (NEGATIVE); Blood NEGATIVE Ery/ul (0-5); Collection Type VOID; Glucose NEGATIVE (NEGATIVE); Leukocyte Esterase 1+ (NEGATIVE)
[2017-06-11 16:34] LABS: ADD URINE CULTURE? YES (NO); Bacteria MODERATE /HPF (NEGATIVE); COMPLETE URINE MICROSCOPIC? YES; Epithelial Cells FEW /HPF (FEW); Mucus MODERATE /HPF (NEGATIVE)
[2017-06-11 16:35] LABS: ANION GAP 16.3 MEQ/L (5-15); BLOOD UREA NITROGEN 11 mg/dL (9-20); CHLORIDE 106 mEq/L (98-107); Carbon Dioxide 22.7 mEq/L (21-32); Glucose 95 MG/DL (70-110); Potassium 3.6 mEq/L (3.5-5.1); SODIUM 141 mEq/L (136-145)
[2017-06-11 16:43] VITALS: PULSE 78
[2017-06-11 17:27] VITALS: BP 126/56; O2SAT 99
== END 2017-06-11 17:33 | disposition home or self-care (01) ==
LOC: ED 15:45
DX: F41.9 Anxiety disorder, unspecified (principal); N39.0 Urinary tract infection, site not specified; R11.0 Nausea; R19.7 Diarrhea, unspecified
CPT/HCPCS: 36000; 36415; 80048; 81000; 84703; 85025; 87086; 87631; 99283; 99284; P9612

== ENCOUNTER 2017-09-04 06:55 | Emergency (ER) | payer SELFPAY ==
[2017-09-04 07:05] VITALS: BP 135/73
--- NOTE | 2017-09-04 07:17 | ERPHSYRPT ---
- History of Present Illness Time Seen by Provider: 09/04/17 07:08 Source: patient Exam Limitations: no limitations Patient Subjective Stated Complaint: pt here for earache, sorethroat and cough for a couple days Triage Nursing Assessment: pt alert, walked in, resp easy, skin w/d pink , dry cough Physician History: 22-year-old white female arrives with complaint of earache sore throat cough symptoms for several days. Past medical history includes anxiety, bipolar, panic disorder, fast heart rate. Past surgical history is negative Timing/Duration: day(s) (3 days) Severity: moderate Modifying Factors: Improves With: nothing Associated Symptoms: cough, fever, other (patient felt off balance this morning) , No nausea, No vomiting, No abdominal pain, No shortness of breath, No heartburn, No diaphoresis, No chills, No chest pain, No headaches, No loss of appetite, No malaise, No rash, No syncope, No seizure, No weakness Allergies/Adverse Reactions: sulfamethoxazole [From Bactrim DS] Allergy (Severe, Verified 09/04/17 07:07) RAPID HEART RATE trimethoprim [From Bactrim DS] Allergy (Severe, Verified 09/04/17 07:07) RAPID HEART RATE diphenhydramine HCl [From Benadryl] Allergy (Intermediate, Verified 09/04/17 07: 07) "OVER-REACTS AND ACTS DRUNK" Home Medications: No Home Meds [No Home Meds] 1 [facility] UD 05/26/16 [History] Hx Tetanus, Diphtheria Vaccination/Date Given: Yes Hx Influenza Vaccination/Date Given: No Hx Pneumococcal Vaccination/Date Given: No Immunizations Up to Date: Yes - Review of Systems Constitutional: Fever, No Chills, No Fatigue, No Lethargy, No Malaise, No Night Sweats, No Weakness, No Weight Loss Eyes: No Symptoms Ears, Nose, & Throat: Ear Pain, Nose Congestion, Throat Pain, No Ear Discharge, No Hearing Changes, No Tinnitus, No Nose Pain, No Nose Discharge, No Sinus Drainage, No Epistaxis, No Mouth Pain, No Mouth Swelling, No Loose Teeth, No Throat Swelling, No Hoarse, No Painful Swallowing, No Snoring, No Stridor Respiratory: Cough, No Cyanosis, No Dyspnea, No Dyspnea on Exertion (SARGENT), No Stridor, No Wheezing Cardiac: No Chest Pain, No Edema, No Syncope Abdominal/Gastrointestinal: No Abdominal Pain, No Nausea, No Vomiting, No Diarrhea Genitourinary Symptoms: No Dysuria Musculoskeletal: No Back Pain, No Neck Pain Skin: No Rash Neurological: Other (patient felt off balance this morning), No Dizziness, No Focal Weakness, No Sensory Changes Psychological: No Symptoms Endocrine: No Symptoms All Other Systems: Reviewed and Negative - Past Medical History Pertinent Past Medical History: Yes Neurological History: No Pertinent History ENT History: No Pertinent History Cardiac History: No Pertinent History Respiratory History: No Pertinent History Endocrine Medical History: No Pertinent History Musculoskeletal History: No Pertinent History GI Medical History: No Pertinent History History: No Pertinent History Psycho-Social History: Anxiety, Bipolar, Panic Disorder Other Medical History: fast heart rate - Past Surgical History Past Surgical History: No - Social History Smoking Status: Never smoker Exposure to second hand smoke: No Alcohol Use: None Drug Use: none Patient Lives Alone: No Significant Family History: no pertinent family hx - Female History Hx Last Menstrual Period: now Hx Now: No - Nursing Vital Signs Nursing Vital Signs: Initial Vital Signs Temperature 98.1 F 09/04/17 07:01 Pulse Rate 100 H 09/04/17 07:01 Respiratory Rate 20 09/04/17 07:01 Blood Pressure 135/73 09/04/17 07:01 O2 Sat by Pulse Oximetry 99 09/04/17 07:01 Pain Scale Pain Intensity 3 - Physical Exam General Appearance: no apparent distress, alert Eye Exam: PERRL/EOMI, eyes nml inspection Ears, Nose, Throat Exam: normal ENT inspection, TMs normal, pharynx normal, moist mucous membranes Neck Exam: normal inspection, non-tender, supple, full range of motion Respiratory Exam: normal breath sounds, lungs clear, No respiratory distress Cardiovascular Exam: regular rate/rhythm, normal heart sounds, normal peripheral pulses Gastrointestinal/Abdomen Exam: soft, normal bowel sounds, No tenderness, No mass Back Exam: normal inspection, normal range of motion, No CVA tenderness, No vertebral tenderness Extremity Exam: normal inspection, normal range of motion, pelvis stable Neurologic Exam: alert, oriented x 3, cooperative, normal mood/affect, nml cerebellar function, nml station & gait, sensation nml, other (patient alert, oriented 3, speech normal, no facial droop, room attendants equal 5 over 5, normal finger to nose, cranial nerves II through XII intact, no sensory deficitsGCS equals 15), No motor deficits, No sensory deficit, No disoriented, No confusion , No agitation, No uncooperative, No intoxicated appearance, No depressed mood/ affect, No motor weakness, No facial droop, No slurred speech, No aphasia, No dysarthria, No abnormal gait, No abnormal cerebellar tests, No abnormal rewards consultant II- XII, No EOM palsy Skin Exam: normal color, warm, dry, No rash Lymphatic Exam: No adenopathy SpO2 Interpretation: normal ( 99%) SpO2: 99 Oxygen Delivery: Room Air - Course Nursing assessment & vital signs reviewed: Yes - Progress Progress: improved Progress Note: 09/04/17 07:14 22-year-old white female arrives with complaint of earache sore throat cough symptoms for 3 days states she felt somewhat off balance with getting up this morning patient with a perfectly normal exam including normal neurologic exam. Will place patient on Zithromax plenty of fluids. - Departure Time of Disposition: :17 Departure Disposition: Home Clinical Impression: Bronchitis URI (upper respiratory infection) Qualifiers: URI type: unspecified URI Qualified Code(s): J06.9 - Acute upper respiratory infection, unspecified Condition: Fair Critical Care Time: No Referrals: [facility] CASTELLANOS [Primary Care Provider] - Additional Instructions: Return home. Plenty of fluids. Zithromax Z-GILSON as directed. Tylenol every 4 hours as needed for temperature greater 100.5. Follow-up with your family doctor if symptoms are worse, no better in 48 hours, or persist longer than one week. Return for acute distress or for severe symptoms. Prescriptions: Azithromycin 250 mg [Zithromax 250 MG TABLET] 0 mg PO ZPACK #6 tablet
[2017-09-04 07:36] VITALS: PULSE 82; O2SAT 97
== END 2017-09-04 07:39 | disposition home or self-care (01) ==
LOC: ED 06:55
DX: J06.9 Acute upper respiratory infection, unspecified (principal); J40 Bronchitis, not specified as acute or chronic
CPT/HCPCS: 99282

== ENCOUNTER 2017-10-21 21:34 | Emergency (ER) | payer OTHER ==
[2017-10-21] MEDS ORDERED: Sodium Chloride 0.9% 1000 ML 1,000 ML ONE ×2 (21:56→23:42)
--- NOTE | 2017-10-21 22:00 | ERPHSYRPT ---
- History of Present Illness Time Seen by Provider: 10/21/17 21:48 Source: patient Exam Limitations: no limitations Patient Subjective Stated Complaint: c/o sore throat, headache, dizziness today , tactile fever noted at home Triage Nursing Assessment: lungs CTA bilat, c/o general malaise, sore throat Physician History: 22 y/o female comes to the ER with complaints of shortness of breath, dizziness , sore throat, cough and subjective fever for the past 2 days. Pt admits to worsening shortness of breath with exertion. Pt arrives with a HR in the 150's. Pt also has a temperature of 99.9. Pt has been using motrin and robitussin with minimal relief. There is a sick contact that was recently diagnosed with influenza B. Timing/Duration: gradual onset Severity: mild ENT Location: throat Prearrival Treatment: over the counter meds Modifying Factors: Improves With: activity Associated Symptoms: dizziness, sore throat Allergies/Adverse Reactions: sulfamethoxazole [From Bactrim DS] Allergy (Severe, Verified 09/04/17 07:07) RAPID HEART RATE trimethoprim [From Bactrim DS] Allergy (Severe, Verified 09/04/17 07:07) RAPID HEART RATE diphenhydramine HCl [From Benadryl] Allergy (Intermediate, Verified 09/04/17 07: 07) "OVER-REACTS AND ACTS DRUNK" Home Medications: No Home Meds [No Home Meds] 1 [facility] UD 05/26/16 [History] Hx Tetanus, Diphtheria Vaccination/Date Given: Yes Hx Influenza Vaccination/Date Given: No Hx Pneumococcal Vaccination/Date Given: No Immunizations Up to Date: Yes - Review of Systems Constitutional: Fever, Weakness, No Chills Eyes: No Symptoms Ears, Nose, & Throat: No Symptoms, Throat Pain Respiratory: Cough, Dyspnea, Dyspnea on Exertion (SARGENT) Cardiac: No Chest Pain, No Edema, No Syncope Abdominal/Gastrointestinal: No Abdominal Pain, No Nausea, No Vomiting, No Diarrhea Genitourinary Symptoms: Frequency, No Dysuria Musculoskeletal: No Back Pain, No Neck Pain Skin: No Rash Neurological: Dizziness, No Focal Weakness, No Sensory Changes Psychological: No Symptoms Endocrine: No Symptoms All Other Systems: Reviewed and Negative - Past Medical History Pertinent Past Medical History: Yes Neurological History: No Pertinent History ENT History: No Pertinent History Cardiac History: No Pertinent History Respiratory History: No Pertinent History Endocrine Medical History: No Pertinent History Musculoskeletal History: No Pertinent History GI Medical History: No Pertinent History History: No Pertinent History Psycho-Social History: Anxiety, Bipolar, Panic Disorder Other Medical History: fast heart rate - Past Surgical History Past Surgical History: No - Social History Smoking Status: Never smoker Exposure to second hand smoke: No Alcohol Use: None Drug Use: none Patient Lives Alone: No Significant Family History: no pertinent family hx - Female History Hx Last Menstrual Period: 09/12/2018 Hx Now: No - Nursing Vital Signs Nursing Vital Signs: Initial Vital Signs Temperature 99.9 F 10/21/17 21:41 Pulse Rate 140 H 10/21/17 21:41 Respiratory Rate 20 10/21/17 21:41 Blood Pressure 158/93 10/21/17 21:41 O2 Sat by Pulse Oximetry 98 10/21/17 21:41 Pain Scale Pain Intensity 0 - Physical Exam General Appearance: mild distress Eye Exam: bilateral eye: normal inspection Ear Exam: bilateral ear: auricle normal, TM normal Nasal Exam: normal inspection Throat Exam: pharynx swelling, pharynx tenderness, tonsillar exudate Neck Exam: supple Cardiovascular/Respiratory Exam: normal breath sounds, tachycardia Abdominal Exam: non-tender, soft Neurologic Exam: alert, oriented x 3, sensation nml, No motor deficits Skin Exam: normal color, warm, dry SpO2: 98 Oxygen Delivery: Room Air - Course Nursing assessment & vital signs reviewed: Yes Ordered Tests: Active Orders 24 hr Category Date Time Status Hearing Therapy Teacher STAT Care 10/21/17 22:02 Active EKG-ER Only STAT Care 10/21/17 22:02 Active IV Insertion STAT Care 10/21/17 22:02 Active Orthostatic Vital Signs STAT Care 10/21/17 22:25 Active CHEST 2 VIEWS (PA AND LAT) Stat Exams 10/21/17 22:02 Taken BLOOD CULTURE Stat Lab 10/21/17 22:40 Received CBC W DIFF Stat Lab 10/21/17 22:10 Completed CMP Stat Lab 10/21/17 22:10 Completed CULTURE, THROAT Stat Lab 10/21/17 22:40 Received CULTURE,URINE Stat Lab 10/21/17 22:10 Received D-DIMER QUANTITATION Stat Lab 10/21/17 22:10 Completed HCG QUALITATIVE,SERUM Stat Lab 10/21/17 22:10 Completed Manual Differential NC Stat Lab 10/21/17 22:10 Completed [place] Screen Stat Lab 10/21/17 22:10 Completed STREP SCREEN-BETA A Stat Lab 10/21/17 22:40 Completed TROPONIN Q3H Lab 10/21/17 22:10 Completed UA W/ MICROSCOPIC Stat Lab 10/21/17 22:10 Completed Medication Summary Generic Name Dose Route Start Last Admin Trade Name Freq PRN Reason Stop Dose Admin Sodium Chloride 1,000 mls @ 999 mls/hr 10/21/17 23:41 10/21/17 23:45 Sodium Chloride 0.9% 1000 Ml IV 10/22/17 00:41 999 mls/hr .Q1H1M STA Administration Discontinued Medications Generic Name Dose Route Start Last Admin Trade Name Freq PRN Reason Stop Dose Admin Sodium Chloride Confirm 10/21/17 21:56 Sodium Chloride 0.9% 1000 Ml Administered 10/21/17 21:57 Dose 1,000 mls @ ud .ROUTE .STK-MED ONE Sodium Chloride 1,000 mls @ 999 mls/hr 10/21/17 22:04 10/21/17 22:09 Sodium Chloride 0.9% 1000 Ml IV 10/21/17 23:04 999 mls/hr .Q1H1M STA Administration Sodium Chloride Confirm 10/21/17 23:42 Sodium Chloride 0.9% 1000 Ml Administered 10/21/17 23:43 Dose 1,000 mls @ ud .ROUTE .STK-MED ONE Lab/Rad Data: Laboratory Result Diagrams 10/21/17 22:10 10/21/17 22:10 Laboratory Results 10/21/17 10/21/17 10/21/17 Range/Units 22:40 22:40 22:10 WBC (4.0-10.5) K/mm3 RBC (4.1-5.4) M/mm3 Hgb (12.0-16.0) gm/dl Hct (35-47) % MCV (78-100) fl MCH (26-32) pg MCHC (32-36) g/dl RDW (11.5-14.0) % Plt Count (150-450) K/mm3 MPV (6-9.5) fl Segmented Neutrophils (36.0-66.0) % Band Neutrophils (0.0-2.0) % Lymphocytes (Manual) (24-44) % Monocytes (Manual) (0.0-12.0) % Differential Comment Platelet Estimate (NORMAL) D-Dimer (0-500) ng/mL Sodium (136-145) mEq/L Potassium (3.5-5.1) mEq/L Chloride (98-107) mEq/L Carbon Dioxide (21-32) mEq/L Anion Gap (5-15) MEQ/L BUN (9-20) mg/dL Creatinine (0.55-1.30) mg/dl Estimated GFR ML/MIN Glucose (70-110) MG/DL Calcium (8.5-10.1) mg/dL Total Bilirubin (0.2-1.0) mg/dL AST (15-37) U/L ALT (12-78) U/L Alkaline Phosphatase (46-116) U/L Troponin I (0.000-0.056) ng/ml Serum Total Protein (6.4-8.2) gm/dL Albumin (3.4-5.0) g/dL Serum , Qual (Negative) Ur Collection Type CCMS Urine Color YELLOW (YELLOW) Urine Appearance CLEAR (CLEAR) Urine pH 5.0 (5-6) Ur Specific [place] 1.020 (1.005-1.025) Urine Protein NEGATIVE (Negative) Urine Ketones NEGATIVE (NEGATIVE) Urine Blood NEGATIVE (0-5) Demar/ul Urine Nitrite NEGATIVE (NEGATIVE) Urine Bilirubin NEGATIVE (NEGATIVE) Urine Urobilinogen NORMAL (0-1) mg/dL Ur Leukocyte Esterase TRACE (NEGATIVE) Urine Microscopic WBC 0-2 (0-5) /HPF Ur Epithelial Cells RARE (FEW) /HPF Urine Bacteria RARE (NEGATIVE) /HPF Urine Mucus SLIGHT (NEGATIVE) /HPF Urine Glucose NEGATIVE (NEGATIVE) mg/dL Monoscreen (Negative) Influenza Type A Ag NEGATIVE (NEGATIVE) Influenza Type B Ag NEGATIVE (NEGATIVE) RSV (PCR) NEGATIVE (Negative) Streptococcus Screen NEGATIVE (Negative) Specimen Received 10-21-17 [id number] 10/21/17 10/21/17 10/21/17 Range/Units 22:10 22:10 22:10 WBC (4.0-10.5) K/mm3 RBC (4.1-5.4) M/mm3 Hgb (12.0-16.0) gm/dl Hct (35-47) % MCV (78-100) fl MCH (26-32) pg MCHC (32-36) g/dl RDW (11.5-14.0) % Plt Count (150-450) K/mm3 MPV (6-9.5) fl Segmented Neutrophils (36.0-66.0) % Band Neutrophils (0.0-2.0) % Lymphocytes (Manual) (24-44) % Monocytes (Manual) (0.0-12.0) % Differential Comment Platelet Estimate (NORMAL) D-Dimer 224.46 (0-500) ng/mL Sodium (136-145) mEq/L Potassium (3.5-5.1) mEq/L Chloride (98-107) mEq/L Carbon Dioxide (21-32) mEq/L Anion Gap (5-15) MEQ/L BUN (9-20) mg/dL Creatinine (0.55-1.30) mg/dl Estimated GFR ML/MIN Glucose (70-110) MG/DL Calcium (8.5-10.1) mg/dL Total Bilirubin (0.2-1.0) mg/dL AST (15-37) U/L ALT (12-78) U/L Alkaline Phosphatase (46-116) U/L Troponin I (0.000-0.056) ng/ml Serum Total Protein (6.4-8.2) gm/dL Albumin (3.4-5.0) g/dL Serum , Qual NEGATIVE (Negative) Ur Collection Type Urine Color (YELLOW) Urine Appearance (CLEAR) Urine pH (5-6) Ur Specific [place] (1.005-1.025) Urine Protein (Negative) Urine Ketones (NEGATIVE) Urine Blood (0-5) Demar/ul Urine Nitrite (NEGATIVE) Urine Bilirubin (NEGATIVE) Urine Urobilinogen (0-1) mg/dL Ur Leukocyte Esterase (NEGATIVE) Urine Microscopic WBC (0-5) /HPF Ur Epithelial Cells (FEW) /HPF Urine Bacteria (NEGATIVE) /HPF Urine Mucus (NEGATIVE) /HPF Urine Glucose (NEGATIVE) mg/dL Monoscreen NEGATIVE (Negative) Influenza Type A Ag (NEGATIVE) Influenza Type B Ag (NEGATIVE) RSV (PCR) (Negative) Streptococcus Screen (Negative) Specimen Received 10/21/17 10/21/17 10/21/17 Range/Units 22:10 22:10 22:10 WBC 14.7 H (4.0-10.5) K/mm3 RBC 4.97 (4.1-5.4) M/mm3 Hgb 14.4 (12.0-16.0) gm/dl Hct 43.3 (35-47) % MCV 87.1 (78-100) fl MCH 29.0 (26-32) pg MCHC 33.3 (32-36) g/dl RDW 13.7 (11.5-14.0) % Plt Count 380 (150-450) K/mm3 MPV 9.4 (6-9.5) fl Segmented Neutrophils 77 H (36.0-66.0) % Band Neutrophils 5 H (0.0-2.0) % Lymphocytes (Manual) 11 L (24-44) % Monocytes (Manual) 7 (0.0-12.0) % Differential Comment NORMAL Platelet Estimate NORMAL (NORMAL) D-Dimer (0-500) ng/mL Sodium 141 (136-145) mEq/L Potassium 3.8 (3.5-5.1) mEq/L Chloride 104 (98-107) mEq/L Carbon Dioxide 21.5 (21-32) mEq/L Anion Gap 19.6 H (5-15) MEQ/L BUN 10 (9-20) mg/dL Creatinine 0.72 (0.55-1.30) mg/dl Estimated GFR > 60 ML/MIN Glucose 100 (70-110) MG/DL Calcium 9.8 (8.5-10.1) mg/dL Total Bilirubin 0.40 (0.2-1.0) mg/dL AST 20 (15-37) U/L ALT 29 (12-78) U/L Alkaline Phosphatase 99 (46-116) U/L Troponin I < 0.017 (0.000-0.056) ng/ml Serum Total Protein 8.3 H (6.4-8.2) gm/dL Albumin 4.2 (3.4-5.0) g/dL Serum , Qual (Negative) Ur Collection Type Urine Color (YELLOW) Urine Appearance (CLEAR) Urine pH (5-6) Ur Specific [place] (1.005-1.025) Urine Protein (Negative) Urine Ketones (NEGATIVE) Urine Blood (0-5) Demar/ul Urine Nitrite (NEGATIVE) Urine Bilirubin (NEGATIVE) Urine Urobilinogen (0-1) mg/dL Ur Leukocyte Esterase (NEGATIVE) Urine Microscopic WBC (0-5) /HPF Ur Epithelial Cells (FEW) /HPF Urine Bacteria (NEGATIVE) /HPF Urine Mucus (NEGATIVE) /HPF Urine Glucose (NEGATIVE) mg/dL Monoscreen (Negative) Influenza Type A Ag (NEGATIVE) Influenza Type B Ag (NEGATIVE) RSV (PCR) (Negative) Streptococcus Screen (Negative) Specimen Received - Progress Progress: improved Progress Note: 10/21/17 23:50 The patient initially arrives with a HR in the 140's but has come down to 116 after receiving 1 liter of NS fluids. Pt will be giving another liter of fluids. The CXR, influenza, mono screen, UA, troponin and d-dimer are all unremarkable. The pharynx did show whitish exudate and the patient will be given a dose of rocephin prior to discharge and will be given a 7 day course of amoxicillin for presumptive strep throat. - Departure Time of Disposition: 23:53 Departure Disposition: Home Clinical Impression: Dehydration, Tachycardia Pharyngitis Qualifiers: Pharyngitis/tonsillitis etiology: unspecified etiology Qualified Code(s): J02.9 - Acute pharyngitis, unspecified Condition: Stable Critical Care Time: No Referrals: CHRIST CASTELLANOS [Primary Care Provider] - Instructions: Sore Throat, Adult (DC), Tachycardia (DC), Dehydration, Adult (DC ) Additional Instructions: Return to the ER if you should have worsening fever, chills, weakness, dizziness , cough, sore throat or shortness of breath. Finish the antibiotics until completion. Prescriptions: Amoxicillin 500 mg PO BID #14 capsule
[2017-10-21] MEDS ORDERED: Sodium Chloride 0.9% 1000 ML 1,000 ML IV STA ×2 (22:04→23:41)
[2017-10-21 22:16] LABS: Hematocrit 43.3 % (35-47); Hemoglobin 14.4 gm/dl (12.0-16.0); Mean Cell Volume 87.1 fl (78-100); Mean Corpuscular Hgb Concent. 33.3 g/dl (32-36); Mean Platelet Volume 9.4 fl (6-9.5); Platelet Count 380 K/mm3 (150-450); Red Blood Count 4.97 M/mm3 (4.1-5.4); Red Cell Distribution Width 13.7 % (11.5-14.0); White Blood Count 14.7 K/mm3 (4.0-10.5)
[2017-10-21 22:59] LABS: ALBUMIN 4.2 g/dL (3.4-5.0); ALKALINE PHOSPHATASE 99 U/L (46-116); ANION GAP 19.6 MEQ/L (5-15); BLOOD UREA NITROGEN 10 mg/dL (9-20); CHLORIDE 104 mEq/L (98-107); Calcium 9.8 mg/dL (8.5-10.1); Carbon Dioxide 21.5 mEq/L (21-32); Creatinine 1 0.72 mg/dl (0.55-1.30); EST GLOMERULAR FILTRATION RATE > 60 ML/MIN; Glucose 100 MG/DL (70-110); Potassium 3.8 mEq/L (3.5-5.1); SGOT/AST 20 U/L (15-37); SGPT/ALT 29 U/L (12-78); SODIUM 141 mEq/L (136-145); Total Protein 8.3 gm/dL (6.4-8.2)
[2017-10-21 23:10] LABS: Appearance CLEAR (CLEAR); Bacteria RARE /HPF (NEGATIVE); Bilirubin NEGATIVE (NEGATIVE); Blood NEGATIVE Ery/ul (0-5); Epithelial Cells RARE /HPF (FEW); Glucose NEGATIVE (NEGATIVE); Ketones NEGATIVE (NEGATIVE); Leukocyte Esterase TRACE (NEGATIVE); Mucus SLIGHT /HPF (NEGATIVE); Nitrite NEGATIVE (NEGATIVE); Protein,Urine Dip NEGATIVE (Negative); Urobilinogen NORMAL mg/dL (0-1); WBC 0-2 /HPF (0-5)
[2017-10-21 23:46] LABS: BAND 5 % (0.0-2.0); Lymphocytes 11 % (24-44); Monocyte 7 % (0.0-12.0); Neutrophils 77 % (36.0-66.0); Platelet Estimate NORMAL (NORMAL); Total Cells Counted 100
[2017-10-21 23:49] LABS: INFLUENZA A NEGATIVE (NEGATIVE); INFLUENZA B NEGATIVE (NEGATIVE); RESPIRATORY SYNCTIAL VIRUS NEGATIVE (Negative)
[2017-10-21] MEDS ORDERED: ROCEPHIN 1 Gm-D5w 50 ml Bag** 1 G/50 ML IVPB IV STA (23:50)
[2017-10-21] MEDS ORDERED: ROCEPHIN 1 Gm-D5w 50 ml Bag** 1 G/50 ML IVPB IV ONE (23:51)
[2017-10-22 00:51] VITALS: BP 135/80; PULSE 110; O2SAT 99
--- NOTE | 2017-10-22 09:21 | XRAY ---
Indication: Possible sepsis. Comparison: March 06, 2016. PA/lateral chest again demonstrates normal heart, lungs, and bony thorax.
== END 2017-10-22 00:50 | disposition home or self-care (01) ==
LOC: ED 21:34
DX: J02.9 Acute pharyngitis, unspecified (principal); E86.0 Dehydration; R00.0 Tachycardia, unspecified; R51 Headache; R42 Dizziness and giddiness; R50.9 Fever, unspecified
CPT/HCPCS: 36000; 36415; 71046; 80053; 81000; 84484; 84703; 85025; 85379; 86308; 87040; 87070; 87086; 87430; 87631; 93005; 93041; 96360; 96361; 96365; 99284; J0696

== ENCOUNTER 2018-06-23 18:06 | Emergency (ER) | payer OTHER ==
[2018-06-23 18:20] VITALS: PULSE 120; O2SAT 99
[2018-06-23] MEDS ORDERED: Augmentin 875-125 Tablet PO ONE (19:30)
--- NOTE | 2018-06-23 19:36 | ERPHSYRPT ---
- History of Present Illness Time Seen by Provider: 06/23/18 18:30 Source: patient Exam Limitations: clinical condition Patient Subjective Stated Complaint: Pt states "I had a cold and I thought it was gone but about 30 minutes ago I started to cough and I took a nebulizer tx and it did not help." Triage Nursing Assessment: Pt alert and oriented X 3, skin pwd. PT ambulates with an upright steady gait, able to speak in clear full sentences. Pt has intermittant non productive cough. Physician History: PATIENT COMPLAINS OF A NONPRODUCTIVE COUGH FOR 1 WEEK. DENIES CHEST PAIN, DYSPNEA, SORETHROAT OR FEVER. Timing/Duration: week(s) Cough Quality/Degree: severe Possible Cause: occasional episodes Modifying Factors: Improves With: coughing Associated Symptoms: denies symptoms International travel in last 2 weeks: No Allergies/Adverse Reactions: sulfamethoxazole [From Bactrim DS] Allergy (Severe, Verified 09/04/17 07:07) RAPID HEART RATE trimethoprim [From Bactrim DS] Allergy (Severe, Verified 09/04/17 07:07) RAPID HEART RATE diphenhydramine HCl [From Benadryl] Allergy (Intermediate, Verified 09/04/17 07: 07) "OVER-REACTS AND ACTS DRUNK" Home Medications: No Home Meds [No Home Meds] 1 [facility] 05/26/16 [History] Hx Tetanus, Diphtheria Vaccination/Date Given: Yes Hx Influenza Vaccination/Date Given: No Hx Pneumococcal Vaccination/Date Given: No Immunizations Up to Date: Yes - Review of Systems Constitutional: No Symptoms Eyes: No Symptoms Ears, Nose, & Throat: No Symptoms Respiratory: Cough Cardiac: No Symptoms Neurological: No Symptoms Psychological: Suicidal Ideations Endocrine: No Symptoms - Past Medical History Pertinent Past Medical History: Yes Neurological History: No Pertinent History ENT History: No Pertinent History Cardiac History: No Pertinent History Respiratory History: No Pertinent History Endocrine Medical History: No Pertinent History Musculoskeletal History: No Pertinent History GI Medical History: No Pertinent History History: No Pertinent History Psycho-Social History: Anxiety, Bipolar, Panic Disorder Other Medical History: fast heart rate - Past Surgical History Past Surgical History: No - Social History Smoking Status: Never smoker Exposure to second hand smoke: No Alcohol Use: None Drug Use: none Patient Lives Alone: No Significant Family History: no pertinent family hx - Female History Hx Last Menstrual Period: 05/05/2018 Hx Now: No - Nursing Vital Signs Nursing Vital Signs: Initial Vital Signs Temperature 98.5 F 06/23/18 18:15 Pulse Rate 120 H 06/23/18 18:15 Respiratory Rate 20 06/23/18 18:15 Blood Pressure 160/90 06/23/18 18:15 O2 Sat by Pulse Oximetry 99 06/23/18 18:15 Pain Scale Pain Intensity 0 - Physical Exam General Appearance: no apparent distress, alert Eye Exam: PERRL/EOMI, eyes nml inspection Ears, Nose, Throat Exam: normal ENT inspection, TMs normal, pharynx normal, moist mucous membranes Neck Exam: normal inspection, non-tender, supple, full range of motion Respiratory Exam: normal breath sounds, lungs clear, No respiratory distress Cardiovascular Exam: regular rate/rhythm, normal heart sounds Gastrointestinal/Abdomen Exam: No tenderness Back Exam: normal inspection, No CVA tenderness, No vertebral tenderness Extremity Exam: normal inspection, normal range of motion Neurologic Exam: alert, oriented x 3, cooperative, normal mood/affect, sensation nml, No motor deficits Skin Exam: normal color, warm, dry, No rash Lymphatic Exam: No adenopathy SpO2: 99 Oxygen Delivery: Room Air - Progress Progress Note: 06/23/18 19:32 AUGMENTIN 875 MG ORALLY Counseled pt/family regarding: diagnosis, need for follow-up - Departure Time of Disposition: 19:38 Departure Disposition: Home Clinical Impression: ACUTE BRONCHITIS Condition: Stable Critical Care Time: No Referrals: CHRIST CASTELLANOS [Primary Care Provider] - Additional Instructions: ANTIBIOTIC AUGMENTIN 875MG TWICE DAILY FOR 10 DAYS. ROBITUSSIN WITH CODEINE COUGH SYRUP 5ML EVERY 4-6 HOURS FOR COUGHING. TYLENOL OR MOTRIN FOR FEVER NEEDED. Prescriptions: Guaifenesin/Codeine Phosphate [Robitussin AC Syrup] 5 ml PO Q4H PRN PRN #118 ml PRN Reason: COUGH Amox Tr/Potass Clav. 875 mg [Augmentin 875-125 Tablet] 875 mg PO BID #20 tablet
[2018-06-23] MEDS ORDERED: Augmentin 875-125 Tablet ONE (19:39)
[2018-06-23 19:59] VITALS: BP 114/72
== END 2018-06-23 20:02 | disposition home or self-care (01) ==
LOC: ED 18:06
DX: J20.9 Acute bronchitis, unspecified (principal)
CPT/HCPCS: 99283; A9270-GY

== ENCOUNTER 2019-05-28 23:44 | Emergency (ER) | payer OTHER ==
--- NOTE | 2019-05-29 00:21 | ERPHSYRPT ---
- History of Present Illness Source: patient Exam Limitations: no limitations Patient Subjective Stated Complaint: fever Triage Nursing Assessment: Patient ambulated into ED and transferred self to bed. Patient A+O X3. Patient's skin pink, warm and dry. Patient complains of feeling warm and possibly having a fever, but did not check. Patient states she took a one time only dose of Zithromax 500mg for chlamydia and a few hours after she felt her heart racing and felt like she was going to "Pass out". Patient stated she also felt "warm". Patient complains of headache 5/10 constant aching and сергей arm and leg cramping intermittent 6/10. Lungs clear a/ p сергей. Heart tones audible. Patient states she always has a high heart rate. Physician History: Pt is a 23 y/o female that presented to the ED with complains, that she might have allergic reaction to Azithromycin. Pt states, started the ABX today at 7: 00pm, for Chlamydia, and then started noticing high HR, and headache. She went to bed waiting for it to resolve, and then had some nausea, and still being tachycardic and the headache did not resolve. Pt denies rash, or SOB. No wheezing, no throat swelling, no edema or pruritis. Timing/Duration: today Severity: mild Associated Symptoms: nausea, headaches, other (tachycardia) Allergies/Adverse Reactions: sulfamethoxazole [From Bactrim DS] Allergy (Severe, Verified 05/28/19 23:48) RAPID HEART RATE trimethoprim [From Bactrim DS] Allergy (Severe, Verified 05/28/19 23:48) RAPID HEART RATE diphenhydramine HCl [From Benadryl] Allergy (Intermediate, Verified 05/28/19 23: 48) "OVER-REACTS AND ACTS DRUNK" Hx Tetanus, Diphtheria Vaccination/Date Given: Yes Hx Influenza Vaccination/Date Given: No Hx Pneumococcal Vaccination/Date Given: No Immunizations Up to Date: Yes - Review of Systems Constitutional: No Fever, No Chills Eyes: No Symptoms Ears, Nose, & Throat: No Symptoms Respiratory: No Cough, No Dyspnea Cardiac: Palpitations Abdominal/Gastrointestinal: Nausea Genitourinary Symptoms: No Dysuria Musculoskeletal: No Back Pain, No Neck Pain Skin: No Rash Neurological: Headache - Past Medical History Pertinent Past Medical History: Yes Neurological History: No Pertinent History ENT History: No Pertinent History Cardiac History: No Pertinent History Respiratory History: No Pertinent History Endocrine Medical History: No Pertinent History Musculoskeletal History: No Pertinent History GI Medical History: No Pertinent History History: No Pertinent History Psycho-Social History: Anxiety, Bipolar, Panic Disorder Female Reproductive Disorders: No Pertinent History Other Medical History: fast heart rate - Past Surgical History Past Surgical History: No Neuro Surgical History: No Pertinent History Cardiac: No Pertinent History Respiratory: No Pertinent History Gastrointestinal: No Pertinent History Genitourinary: No Pertinent History Musculoskeletal: No Pertinent History Female Surgical History: No Pertinent History - Social History Smoking Status: Never smoker Exposure to second hand smoke: No Alcohol Use: None Drug Use: none Patient Lives Alone: No Significant Family History: no pertinent family hx - Female History Hx Last Menstrual Period: May 15- Hx Now: No - Nursing Vital Signs Nursing Vital Signs: Initial Vital Signs Temperature 98.4 F 05/28/19 23:49 Pulse Rate 124 H 05/28/19 23:49 Respiratory Rate 20 05/28/19 23:49 Blood Pressure 153/112 05/28/19 23:49 O2 Sat by Pulse Oximetry 98 05/28/19 23:49 Pain Scale Pain Intensity 5 - Physical Exam General Appearance: no apparent distress, alert Eye Exam: PERRL/EOMI, eyes nml inspection Ears, Nose, Throat Exam: normal ENT inspection, TMs normal, pharynx normal, moist mucous membranes Neck Exam: normal inspection, non-tender, supple, full range of motion Respiratory Exam: normal breath sounds, lungs clear, No respiratory distress Cardiovascular Exam: tachycardia Gastrointestinal/Abdomen Exam: soft, normal bowel sounds, No tenderness, No mass Back Exam: normal inspection, normal range of motion, No CVA tenderness, No vertebral tenderness Extremity Exam: normal inspection, normal range of motion, pelvis stable Neurologic Exam: alert, oriented x 3, cooperative, normal mood/affect, nml cerebellar function, nml station & gait, sensation nml, No motor deficits SpO2: 98 - Course Nursing assessment & vital signs reviewed: Yes - Progress Progress Note: 05/29/19 00:21 Pt was seen and examined. Pt has no pruritus, or rash. No change in breathing. She is not tachycardic anymore, and has no edema or decrease in BP. I do not believe pt has an allergic reaction to the ABX, and she might be anxious, from the new diagnosis. I did explain to the pt, we will observe her, and make sure she is not developing any reaction, and if she is stable, will d/ c. 05/29/19 02:07 Pt was evaluated again. She is stable, and her vital are stable. Pt is cleared to be d/c to home. Will see patient in: other Counseled pt/family regarding: need for follow-up - Departure Departure Disposition: Home Clinical Impression: Allergic reaction Condition: Stable Critical Care Time: No Referrals: CHRIST CASTELLANOS [Primary Care Provider] - Additional Instructions: F/U with your PCP. Drink plenty of fluids. If any reaction will happen, please come back to the ED.
[2019-05-29 02:07] VITALS: BP 121/75; PULSE 87
[2019-05-29 02:09] VITALS: O2SAT 98
== END 2019-05-29 03:05 ==
LOC: ED 23:44
DX: R00.2 Palpitations (principal); R51 Headache; T78.49XA Other allergy, initial encounter
CPT/HCPCS: 99283

== ENCOUNTER 2019-09-23 20:53 | Emergency (ER) | payer OTHER ==
[2019-09-23 21:35] LABS: Hematocrit 38.4 % (35-47); Hemoglobin 12.9 gm/dl (12.0-16.0); Mean Cell Volume 87.7 fl (78-100); Mean Corpuscular Hemoglobin 29.5 pg (26-32); Mean Corpuscular Hgb Concent. 33.6 g/dl (32-36); Mean Platelet Volume 8.9 fl (6-9.5); Platelet Count 339 K/mm3 (150-450); Red Blood Count 4.38 M/mm3 (4.1-5.4); Red Cell Distribution Width 13.2 % (11.5-14.0); White Blood Count 4.8 K/mm3 (4.0-10.5)
[2019-09-23 21:55] LABS: ANION GAP 11.1 MEQ/L (5-15); BLOOD UREA NITROGEN 10 mg/dL (7-17); CHLORIDE 108 mmol/L (98-107); Calcium 9.7 mg/dL (8.4-10.2); Carbon Dioxide 25 mmol/L (22-30); Creatinine 1 0.59 mg/dL (0.52-1.04); Glucose 99 mg/dL (74-106); SODIUM 142 mmol/L (137-145)
[2019-09-23] MEDS ORDERED: Klor Con 10 MEQ PO ONE ×2 (22:27→22:35)
[2019-09-23 22:33] LABS: Appearance CLEAR (CLEAR); Bilirubin NEGATIVE (NEGATIVE); Blood NEGATIVE Ery/ul (0-5); Epithelial Cells RARE /HPF (FEW); Glucose NEGATIVE (NEGATIVE); Ketones NEGATIVE (NEGATIVE); Leukocyte Esterase NEGATIVE (NEGATIVE); Mucus SLIGHT /HPF (NEGATIVE); Nitrite NEGATIVE (NEGATIVE); Protein,Urine Dip NEGATIVE (Negative); Specific Gravity 1.019 (1.005-1.025); Urobilinogen NEGATIVE mg/dL (0-1); WBC 0-2 /HPF (0-5)
[2019-09-23 22:41] LABS: Group A Strep NEGATIVE (NEGATIVE)
[2019-09-23 22:42] LABS: INFLUENZA A POSITIVE (NEGATIVE); INFLUENZA B NEGATIVE (NEGATIVE); RESPIRATORY SYNCTIAL VIRUS NEGATIVE (Negative)
[2019-09-23] MEDS ORDERED: DUONEB 0.5-3 MG/3 ml Neb IH ONE ×2 (22:47→22:57)
[2019-09-23] MEDS ORDERED: TYLENOL EXTRA STRENGTH 500 MG PO STA (22:49)
--- NOTE | 2019-09-23 22:50 | ERPHSYRPT ---
- History of Present Illness Time Seen by Provider: 09/23/19 21:10 Source: patient, family Exam Limitations: no limitations Patient Subjective Stated Complaint: " I feel like I have a bad cold or the flu. I have had a fever and cough since yesterday". Triage Nursing Assessment: Pt presents to ER with complaints of fever, cough, congestion, nausea, body aches, chills, flu-like symptoms since yesterday. Pt is alert and oriented x 3. Resp easy and unlabored at this time. Lung sounds clear and equal throughout. Abd soft and non tender. Pt is able to ambulate and communicate normally. Cough is productive. Pt is pale, hot, and dry to touch. Physician History: FLU LIKE S/S FOR THE PAST 2 days POSITIVE FLU CONTACT AT WORK SITE Timing/Duration: day(s) (2) Cough Quality/Degree: mild, dry cough Possible Cause: occasional episodes Modifying Factors: Improves With: activity, coughing Associated Symptoms: fever, chills, chest pain/soreness, cough, headache, lightheadedness, muscle aches International travel in last 2 weeks: No Allergies/Adverse Reactions: sulfamethoxazole [From Bactrim DS] Allergy (Severe, Verified 09/23/19 21:05) RAPID HEART RATE trimethoprim [From Bactrim DS] Allergy (Severe, Verified 09/23/19 21:05) RAPID HEART RATE diphenhydramine HCl [From Benadryl] Allergy (Intermediate, Verified 09/23/19 21: 05) "OVER-REACTS AND ACTS DRUNK" Hx Tetanus, Diphtheria Vaccination/Date Given: Yes Hx Influenza Vaccination/Date Given: Yes Hx Pneumococcal Vaccination/Date Given: No Immunizations Up to Date: Yes - Review of Systems Constitutional: Fever, Chills, Fatigue Eyes: No Symptoms Ears, Nose, & Throat: Ear Pain, Nose Congestion, Nose Discharge, Throat Pain Respiratory: Cough, Wheezing Cardiac: No Symptoms Abdominal/Gastrointestinal: Nausea, Vomiting, Diarrhea Genitourinary Symptoms: No Symptoms Musculoskeletal: Arthralgias Skin: No Symptoms Neurological: No Symptoms, Headache Psychological: No Symptoms Endocrine: No Symptoms Hematologic/Lymphatic: No Symptoms All Other Systems: Reviewed and Negative - Past Medical History Pertinent Past Medical History: Yes Neurological History: No Pertinent History ENT History: No Pertinent History Cardiac History: No Pertinent History Respiratory History: No Pertinent History Endocrine Medical History: Diabetes Type II Musculoskeletal History: No Pertinent History GI Medical History: No Pertinent History History: No Pertinent History Psycho-Social History: Anxiety, Bipolar, Panic Disorder Female Reproductive Disorders: No Pertinent History Other Medical History: fast heart rate - Past Surgical History Past Surgical History: No Neuro Surgical History: No Pertinent History Cardiac: No Pertinent History Respiratory: No Pertinent History Gastrointestinal: No Pertinent History Genitourinary: No Pertinent History Musculoskeletal: No Pertinent History Female Surgical History: No Pertinent History - Social History Smoking Status: Never smoker Exposure to second hand smoke: No Alcohol Use: None Drug Use: none Patient Lives Alone: No Significant Family History: no pertinent family hx - Female History Hx Last Menstrual Period: 09/17/19 Hx Now: No - Nursing Vital Signs Nursing Vital Signs: Initial Vital Signs Temperature 100.6 F 09/23/19 20:57 Pulse Rate 130 H 09/23/19 20:57 Respiratory Rate 20 09/23/19 20:57 Blood Pressure 145/86 09/23/19 20:57 O2 Sat by Pulse Oximetry 98 09/23/19 20:57 Pain Scale Pain Intensity 8 - Physical Exam General Appearance: mild distress Eye Exam: PERRL/EOMI Ears, Nose, Throat Exam: TMs normal, pharynx normal, pharyngeal erythema Neck Exam: normal inspection, non-tender, full range of motion, No meningismus, No Brudzinski, No Kernig's Respiratory Exam: diminished breath sounds (BASES ), wheezing (SCATTERED ) Cardiovascular Exam: tachycardia (110), capillary refill <2 sec, No murmur Gastrointestinal/Abdomen Exam: soft, normal bowel sounds, No tenderness, No mass , No guarding, No rebound, No organomegaly Pelvic Exam: deferred Rectal Exam: deferred Back Exam: normal inspection, normal range of motion, CVA tenderness, vertebral tenderness Extremity Exam: normal inspection, normal range of motion, pelvis stable, No calf tenderness Neurologic Exam: alert, oriented x 3, cooperative, can line examiner II-XII nml as tested, normal mood/affect Skin Exam: normal color, warm, dry, rash SpO2: 98 O2 Delivery: Room Air - Course Nursing assessment & vital signs reviewed: Yes Ordered Tests: Active Orders 24 hr Category Date Time Status CHEST 2 VIEWS (PA AND LAT) Stat Exams 09/23/19 21:13 Taken BMP Stat Lab 09/23/19 21:34 Completed CBC W DIFF Stat Lab 09/23/19 21:34 Completed HCG,QUALITATIVE URINE Stat Lab 09/23/19 22:15 Completed Manual Differential NC Stat Lab 09/23/19 21:34 Completed UA W/RFX UR CULTURE Stat Lab 09/23/19 22:15 Completed Medication Summary Discontinued Medications Generic Name Dose Route Start Last Admin Trade Name Jose Luis PRN Reason Stop Dose Admin Potassium Chloride 20 meq 09/23/19 22:27 09/23/19 22:38 Klor Con 10 Meq PO 09/23/19 22:28 20 meq STAT ONE Administration Potassium Chloride Confirm 09/23/19 22:35 Klor Con 10 Meq Administered 09/23/19 22:36 Dose 20 meq PO .STK-MED ONE Lab/Rad Data: Laboratory Result Diagrams 09/23/19 21:34 09/23/19 21:34 Laboratory Results 09/23/19 09/23/19 09/23/19 Range/Units 22:15 22:15 21:34 WBC (4.0-10.5) K/mm3 RBC (4.1-5.4) M/mm3 Hgb (12.0-16.0) gm/dl Hct (35-47) % MCV (78-100) fl MCH (26-32) pg MCHC (32-36) g/dl RDW (11.5-14.0) % Plt Count (150-450) K/mm3 MPV (6-9.5) fl Sodium (137-145) mmol/L Potassium (3.5-5.1) mmol/L Chloride (98-107) mmol/L Carbon Dioxide (22-30) mmol/L Anion Gap (5-15) MEQ/L BUN (7-17) mg/dL Creatinine (0.52-1.04) mg/dL Estimated GFR ML/MIN Glucose (74-106) mg/dL Calcium (8.4-10.2) mg/dL Urine Color YELLOW (YELLOW) Urine Appearance CLEAR (CLEAR) Urine pH 7.0 (5-6) Ur Specific [place] 1.019 (1.005-1.025) Urine Protein NEGATIVE (Negative) Urine Ketones NEGATIVE (NEGATIVE) Urine Blood NEGATIVE (0-5) Demar/ul Urine Nitrite NEGATIVE (NEGATIVE) Urine Bilirubin NEGATIVE (NEGATIVE) Urine Urobilinogen NEGATIVE (0-1) mg/dL Ur Leukocyte Esterase NEGATIVE (NEGATIVE) Urine WBC (Auto) 0-2 (0-5) /HPF Urine RBC (Auto) NONE (0-2) /HPF U Epithel Cells (Auto) RARE (FEW) /HPF Urine Bacteria (Auto) NONE (NEGATIVE) /HPF Urine Mucus (Auto) SLIGHT (NEGATIVE) /HPF Urine Culture Reflexed NO (NO) Urine Glucose NEGATIVE (NEGATIVE) mg/dL Urine HCG, Qual NEGATIVE (Negative) Influenza Type A Ag POSITIVE (NEGATIVE) Influenza Type B Ag NEGATIVE (NEGATIVE) RSV (PCR) NEGATIVE (Negative) Group A Strep Antibody NEGATIVE (NEGATIVE) 09/23/19 09/23/19 Range/Units 21:34 21:34 WBC 4.8 (4.0-10.5) K/mm3 RBC 4.38 (4.1-5.4) M/mm3 Hgb 12.9 (12.0-16.0) gm/dl Hct 38.4 (35-47) % MCV 87.7 (78-100) fl MCH 29.5 (26-32) pg MCHC 33.6 (32-36) g/dl RDW 13.2 (11.5-14.0) % Plt Count 339 (150-450) K/mm3 MPV 8.9 (6-9.5) fl Sodium 142 (137-145) mmol/L Potassium 3.0 L (3.5-5.1) mmol/L Chloride 108 H (98-107) mmol/L Carbon Dioxide 25 (22-30) mmol/L Anion Gap 11.1 (5-15) MEQ/L BUN 10 (7-17) mg/dL Creatinine 0.59 (0.52-1.04) mg/dL Estimated GFR > 60.0 ML/MIN Glucose 99 (74-106) mg/dL Calcium 9.7 (8.4-10.2) mg/dL Urine Color (YELLOW) Urine Appearance (CLEAR) Urine pH (5-6) Ur Specific [place] (1.005-1.025) Urine Protein (Negative) Urine Ketones (NEGATIVE) Urine Blood (0-5) Demar/ul Urine Nitrite (NEGATIVE) Urine Bilirubin (NEGATIVE) Urine Urobilinogen (0-1) mg/dL Ur Leukocyte Esterase (NEGATIVE) Urine WBC (Auto) (0-5) /HPF Urine RBC (Auto) (0-2) /HPF U Epithel Cells (Auto) (FEW) /HPF Urine Bacteria (Auto) (NEGATIVE) /HPF Urine Mucus (Auto) (NEGATIVE) /HPF Urine Culture Reflexed (NO) Urine Glucose (NEGATIVE) mg/dL Urine HCG, Qual (Negative) Influenza Type A Ag (NEGATIVE) Influenza Type B Ag (NEGATIVE) RSV (PCR) (Negative) Group A Strep Antibody (NEGATIVE) - Progress Progress: improved Air Movement: good - Departure Departure Disposition: Home Clinical Impression: Influenza A Condition: Stable Critical Care Time: No Referrals: CHRIST CASTELLANOS [Primary Care Provider] - Additional Instructions: FOLLOW UP WITH PCP NEXT WEEK RETURN TO ER NEEDED -- TAKE MEDICATIONS DIRECTED Prescriptions: Albuterol 8 gm Mdi Hfa [Ventolin Hfa MDI] 8 gm IH Q4H #1 hfa.[email or web address] Oseltamivir 75 mg [Tamiflu 75MG Capsule] 75 mg PO BID #10 cap
[2019-09-23] MEDS ORDERED: TYLENOL EXTRA STRENGTH 500 MG ONE (23:00)
[2019-09-23] MEDS ORDERED: Tamiflu 75MG Capsule PO ONE ×2 (23:19→23:21)
[2019-09-23 23:20] VITALS: BP 132/66; PULSE 116; O2SAT 99
[2019-09-23 23:53] LABS: Lymphocytes 15 % (24-44); Monocyte 12 % (0.0-12.0); Neutrophils 73 % (36.0-66.0); Platelet Estimate NORMAL (NORMAL); Total Cells Counted 100
--- NOTE | 2019-09-24 09:22 | XRAY ---
Indication: Fever and cough. Flu symptoms. Comparison: October 21, 2017. PA/lateral chest again demonstrates normal heart, lungs, and bony thorax.
== END 2019-09-23 23:35 | disposition home or self-care (01) ==
LOC: ED 20:53
DX: J10.1 Influenza due to other identified influenza virus with other respiratory manifestations (principal)
CPT/HCPCS: 36415; 71046; 80048; 81001; 84703; 85025; 87631; 87651; 94150; 94640; 99284; A9270-GY

== ENCOUNTER 2022-01-14 21:46 | Emergency (ER) | payer OTHER ==
[2022-01-14] MEDS ORDERED: Sodium Chloride 0.9% 1000 ML 1,000 ML IV STA (22:59)
[2022-01-14 23:03] VITALS: O2SAT 99
[2022-01-14] MEDS ORDERED: Sodium Chloride 0.9% 1000 ML 1,000 ML ONE (23:19)
[2022-01-14 23:33] LABS: Absolute Neutrophil Ct (ANC) 10.94 (1.4-6.9); Basophil (Absolute #) 0.04 (0-0.4); Eosinophil % 0.9 % (0.00-5.0); Eosinophil (Absolute #) 0.12 (0-0.5); Hematocrit 41.2 % (35-47); Hemoglobin 13.5 gm/dl (12.0-16.0); Lymphocyte (Absolute #) 1.55 (1.0-4.6); Lymphocytes % 11.2 % (24.0-44.0); Mean Cell Volume 90.5 fl (78-100); Mean Corpuscular Hemoglobin 29.7 pg (26-32); Mean Corpuscular Hgb Concent. 32.8 g/dl (32-36); Mean Platelet Volume 8.8 fl (7.5-11.0); Monocyte (Absolute #) 1.23 (0.0-1.3); Monocytes % 8.9 % (0.0-12.0); Neutrophil % 78.7 % (36.0-66.0); Platelet Count 400 K/mm3 (150-450); Red Blood Count 4.55 M/mm3 (4.1-5.4); Red Cell Distribution Width 13.5 % (11.5-14.0); White Blood Count 13.9 K/mm3 (4.0-10.5)
[2022-01-14 23:51] LABS: Epithelial Cells RARE /HPF (FEW); WBC 0-2 /HPF (0-5)
[2022-01-14 23:54] LABS: ALBUMIN 4.7 g/dL (3.5-5.0); ALKALINE PHOSPHATASE 82 U/L (38-126); ANION GAP 15.7 MEQ/L (5-15); BLOOD UREA NITROGEN 12 mg/dL (7-17); CHLORIDE 107 mmol/L (98-107); Calcium 9.8 mg/dL (8.4-10.2); Carbon Dioxide 23 mmol/L (22-30); Creatinine 1 0.46 mg/dL (0.52-1.04); EST GLOMERULAR FILTRATION RATE > 60.0 ML/MIN; Glucose 114 mg/dL (74-106); Potassium 4.3 mmol/L (3.5-5.1); SGOT/AST 22 U/L (14-36); SGPT/ALT 24 U/L (0-35); SODIUM 141 mmol/L (137-145); Total Protein 7.6 g/dL (6.3-8.2)
[2022-01-14 23:56] LABS: Appearance CLEAR (CLEAR); Bilirubin NEGATIVE (NEGATIVE); Dipstick done @ ? MAIN LAB; Glucose NEGATIVE (NEGATIVE); Ketones NEGATIVE (NEGATIVE); Nitrite NEGATIVE (NEGATIVE); Protein,Urine Dip NEGATIVE (Negative); RBC NEGATIVE Ery/ul (0-5); Specific Gravity 1.015 (1.005-1.025); Urobilinogen 0.2 mg/dL (0-1)
[2022-01-14 23:57] LABS: Urine Cultured Indicated? NO
--- NOTE | 2022-01-15 00:34 | ERPHSYRPT ---
- History of Present Illness Time Seen by Provider: 01/14/22 22:10 Source: patient Exam Limitations: no limitations Patient Subjective Stated Complaint: I was watching TV and felt anxious. I have a sore throat, slight cough. Triage Nursing Assessment: Pt has had a slight cough, runny nose, sore throat, and painful when swallowing since friday night. Pt was watching TV tonight and became anxious, shaky and "felt my HR was racing". Pt's throat is pink, no pustules noted. Pt is calm in the ER, mom at bedside, pt is alert and oriented. Pt has a hx of fast heart rate. Pt denies any chest pain Physician History: Patient is a 26-year-old female presents to emergency department for evaluation of heart palpitations. Patient states she was watching TV and felt her heart race. Patient became anxious and began to experience a shake. Patient advised that she has been experiencing a sore throat and a cough for 1 day. Patient also has a runny nose. No fever. No trauma. No rash. Symptoms are constant. Symptoms are moderate in intensity. No specific worsening improving factors. Patient voiced she is otherwise healthy. Patient voices no other complaints or concerns at this time. Timing/Duration: today Severity: moderate Modifying Factors: Improves With: nothing Associated Symptoms: denies symptoms Allergies/Adverse Reactions: sulfamethoxazole [From Bactrim DS] Allergy (Severe, Verified 01/14/22 22:22) RAPID HEART RATE trimethoprim [From Bactrim DS] Allergy (Severe, Verified 01/14/22 22:22) RAPID HEART RATE diphenhydramine HCl [From Benadryl] Allergy (Intermediate, Verified 01/14/22 22:22) "OVER-REACTS AND ACTS DRUNK" Home Medications: Metformin HCl 500 mg [Glucophage 500 MG] 1 tab PO DAILY 01/14/22 [History] Hx Tetanus, Diphtheria Vaccination/Date Given: Yes Hx Influenza Vaccination/Date Given: No Hx Pneumococcal Vaccination/Date Given: No Immunizations Up to Date: Yes Travel Risk - International Travel Have you traveled outside of the country in past 3 weeks: No - Coronavirus Screening Are you exhibiting any of the following symptoms?: No Symptoms: Cough: New Onset Close contact with a COVID-19 positive Pt in past 14-21 Days: No - Vaccine Status Have you recieved a Covid-19 vaccination: No - Review of Systems Constitutional: No Symptoms, No Fever, No Chills Eyes: No Symptoms Ears, Nose, & Throat: No Symptoms Respiratory: No Symptoms, No Cough, No Dyspnea Cardiac: No Symptoms, No Chest Pain, No Edema, No Syncope Abdominal/Gastrointestinal: No Symptoms, No Abdominal Pain, No Nausea, No Vomiting, No Diarrhea Genitourinary Symptoms: No Symptoms, No Dysuria Musculoskeletal: No Symptoms, No Back Pain, No Neck Pain Skin: No Symptoms, No Rash Neurological: No Symptoms, No Dizziness, No Focal Weakness, No Sensory Changes Psychological: No Symptoms Endocrine: No Symptoms Hematologic/Lymphatic: No Symptoms Immunological/Allergic: No Symptoms All Other Systems: Reviewed and Negative - Past Medical History Pertinent Past Medical History: Yes Neurological History: No Pertinent History ENT History: No Pertinent History Cardiac History: No Pertinent History Respiratory History: No Pertinent History Endocrine Medical History: No Pertinent History Musculoskeletal History: No Pertinent History GI Medical History: No Pertinent History History: No Pertinent History Psycho-Social History: Anxiety, Bipolar, Panic Disorder Female Reproductive Disorders: Other Other Medical History: fast heart rate. PCOS - Past Surgical History Past Surgical History: No Neuro Surgical History: No Pertinent History Cardiac: No Pertinent History Respiratory: No Pertinent History Gastrointestinal: No Pertinent History Genitourinary: No Pertinent History Musculoskeletal: No Pertinent History Female Surgical History: No Pertinent History - Social History Smoking Status: Never smoker Exposure to second hand smoke: Yes Alcohol Use: None Drug Use: none Patient Lives Alone: No Significant Family History: no pertinent family hx - Female History Hx Last Menstrual Period: 12/09/21 Hx Now: No (unknown) - Nursing Vital Signs Nursing Vital Signs: Initial Vital Signs Temperature 98.4 F 01/14/22 22:04 Pulse Rate 119 H 01/14/22 22:04 Respiratory Rate 20 01/14/22 22:04 Blood Pressure 127/71 01/14/22 22:04 O2 Sat by Pulse Oximetry 100 01/14/22 22:04 Pain Scale Pain Intensity 0 - Physical Exam General Appearance: no apparent distress, alert Eye Exam: PERRL/EOMI, eyes nml inspection Ears, Nose, Throat Exam: normal ENT inspection, TMs normal, pharynx normal, moist mucous membranes Neck Exam: normal inspection, non-tender, supple, full range of motion Respiratory Exam: normal breath sounds, lungs clear, No respiratory distress Cardiovascular Exam: regular rate/rhythm, normal heart sounds, normal peripheral pulses Gastrointestinal/Abdomen Exam: soft, normal bowel sounds, No tenderness, No mass Back Exam: normal inspection, normal range of motion, No CVA tenderness, No vertebral tenderness Extremity Exam: normal inspection, normal range of motion, pelvis stable Neurologic Exam: alert, oriented x 3, cooperative, normal mood/affect, nml cerebellar function, nml station & gait, sensation nml, No motor deficits Skin Exam: normal color, warm, dry, No rash Lymphatic Exam: No adenopathy SpO2 Interpretation: normal SpO2: 99 O2 Delivery: Room Air - Course Nursing assessment & vital signs reviewed: Yes EKG Interpreted by Me: RATE (123), Sinus Tach, NORMAL AXIS, NORMAL INTERVALS - Radiology Exams Chest X-ray Interpretation: Interpreted by me (Normal heart lungs and bony thorax.) Ordered Tests: Active Orders 24 hr Category Date Time Status [facility] Safety Officer STAT Care 01/14/22 23:00 Active EKG-ER Only STAT Care 01/14/22 22:59 Active IV Insertion STAT Care 01/14/22 22:59 Active Pulse Oximetry (ED) STAT Care 01/14/22 22:59 Active CHEST 1 VIEW (PORTABLE) Stat Exams 01/14/22 23:00 Taken CBC W DIFF Stat Lab 01/14/22 23:25 Completed CMP Stat Lab 01/14/22 23:25 Completed D-DIMER QUANTITATIVE Stat Lab 01/14/22 23:25 Completed HCG,QUALITATIVE URINE Stat Lab 01/14/22 22:43 Completed TROPONIN Q3H Lab 01/14/22 23:25 Completed TROPONIN Q3H Lab 01/15/22 02:00 Ordered TROPONIN Q3H Lab 01/15/22 05:00 Ordered TROPONIN Q3H Lab 01/15/22 08:00 Ordered TROPONIN Q3H Lab 01/15/22 11:00 Ordered TSH [TSH, 3RD Generation] Stat Lab 01/14/22 23:15 Completed Medication Summary Discontinued Medications Generic Name Dose Route Start Last Admin Trade Name Freq PRN Reason Stop Dose Admin Sodium Chloride 1,000 mls @ 999 mls/hr 01/14/22 22:59 01/14/22 23:20 Sodium Chloride 0.9% 1000 Ml IV 01/14/22 23:59 999 mls/hr .Q1H1M STA Administration Sodium Chloride Confirm 01/14/22 23:19 Sodium Chloride 0.9% 1000 Ml Administered 01/14/22 23:20 Dose 1,000 mls @ .ROUTE .[facility] Lab/Rad Data: Laboratory Result Diagrams 01/14/22 23:25 01/14/22 23:25 Laboratory Results 01/14/22 01/14/22 01/14/22 Range/Units 23:25 23:25 23:25 WBC (4.0-10.5) K/mm3 RBC (4.1-5.4) M/mm3 Hgb (12.0-16.0) gm/dl Hct (35-47) % MCV (78-100) fl MCH (26-32) pg MCHC (32-36) g/dl RDW (11.5-14.0) % Plt Count (150-450) K/mm3 MPV (7.5-11.0) fl Gran % (36.0-66.0) % Eos # (Auto) (0-0.5) Absolute Lymphs (auto) (1.0-4.6) Absolute Monos (auto) (0.0-1.3) Lymphocytes % (24.0-44.0) % Monocytes % (0.0-12.0) % Eosinophils % (0.00-5.0) % Basophils % (0.0-0.4) % Absolute Granulocytes (1.4-6.9) Basophils # (0-0.4) D-Dimer 399 (215-500) ng/mL Sodium 141 (137-145) mmol/L Potassium 4.3 (3.5-5.1) mmol/L Chloride 107 (98-107) mmol/L Carbon Dioxide 23 (22-30) mmol/L Anion Gap 15.7 H (5-15) MEQ/L BUN 12 (7-17) mg/dL Creatinine 0.46 L (0.52-1.04) mg/dL Estimated GFR > 60.0 ML/MIN Glucose 114 H (74-106) mg/dL Calcium 9.8 (8.4-10.2) mg/dL Total Bilirubin 0.40 (0.2-1.3) mg/dL AST 22 (14-36) U/L ALT 24 (0-35) U/L Alkaline Phosphatase 82 (38-126) U/L Troponin I < 0.012 (0.000-0.034) ng/mL Serum Total Protein 7.6 (6.3-8.2) g/dL Albumin 4.7 (3.5-5.0) g/dL TSH 3rd Generation (0.47-4.68) mIU/L Urinalys Dipstick Clnc Urine Color (YELLOW) Urine Appearance (CLEAR) Urine pH (5-6) Ur Specific [place] (1.005-1.025) POC Urine Protein Conf (Negative) Urine Ketones (NEGATIVE) Urine Nitrite (NEGATIVE) Urine Bilirubin (NEGATIVE) Urine Urobilinogen (0-1) mg/dL Urine Leukocytes (NEGATIVE) Urine WBC (Auto) (0-5) /HPF Urine RBC (Auto) (0-2) /HPF U Epithel Cells (Auto) (FEW) /HPF Urine Bacteria (Auto) (NEGATIVE) /HPF Urine RBC (0-5) Demar/ul Ur Culture Indicated? Urine Glucose (NEGATIVE) mg/dL Urine HCG, Qual (Negative) Group A Strep Antibody (NEGATIVE) 01/14/22 01/14/22 01/14/22 Range/Units 23:25 23:15 22:44 WBC 13.9 H (4.0-10.5) K/mm3 RBC 4.55 (4.1-5.4) M/mm3 Hgb 13.5 (12.0-16.0) gm/dl Hct 41.2 (35-47) % MCV 90.5 (78-100) fl MCH 29.7 (26-32) pg MCHC 32.8 (32-36) g/dl RDW 13.5 (11.5-14.0) % Plt Count 400 (150-450) K/mm3 MPV 8.8 (7.5-11.0) fl Gran % 78.7 H (36.0-66.0) % Eos # (Auto) 0.12 (0-0.5) Absolute Lymphs (auto) 1.55 (1.0-4.6) Absolute Monos (auto) 1.23 (0.0-1.3) Lymphocytes % 11.2 L (24.0-44.0) % Monocytes % 8.9 (0.0-12.0) % Eosinophils % 0.9 (0.00-5.0) % Basophils % 0.3 (0.0-0.4) % Absolute Granulocytes 10.94 H (1.4-6.9) Basophils # 0.04 (0-0.4) D-Dimer (215-500) ng/mL Sodium (137-145) mmol/L Potassium (3.5-5.1) mmol/L Chloride (98-107) mmol/L Carbon Dioxide (22-30) mmol/L Anion Gap (5-15) MEQ/L BUN (7-17) mg/dL Creatinine (0.52-1.04) mg/dL Estimated GFR ML/MIN Glucose (74-106) mg/dL Calcium (8.4-10.2) mg/dL Total Bilirubin (0.2-1.3) mg/dL AST (14-36) U/L ALT (0-35) U/L Alkaline Phosphatase (38-126) U/L Troponin I (0.000-0.034) ng/mL Serum Total Protein (6.3-8.2) g/dL Albumin (3.5-5.0) g/dL TSH 3rd Generation 2.020 (0.47-4.68) mIU/L Urinalys Dipstick Clnc MAIN LAB Urine Color YELLOW (YELLOW) Urine Appearance CLEAR (CLEAR) Urine pH 7.0 (5-6) Ur Specific [place] 1.015 (1.005-1.025) POC Urine Protein Conf NEGATIVE (Negative) Urine Ketones NEGATIVE (NEGATIVE) Urine Nitrite NEGATIVE (NEGATIVE) Urine Bilirubin NEGATIVE (NEGATIVE) Urine Urobilinogen 0.2 (0-1) mg/dL Urine Leukocytes TRACE (NEGATIVE) Urine WBC (Auto) 0-2 (0-5) /HPF Urine RBC (Auto) NONE (0-2) /HPF U Epithel Cells (Auto) RARE (FEW) /HPF Urine Bacteria (Auto) NONE (NEGATIVE) /HPF Urine RBC NEGATIVE (0-5) Demar/ul Ur Culture Indicated? NO Urine Glucose NEGATIVE (NEGATIVE) mg/dL Urine HCG, Qual (Negative) Group A Strep Antibody (NEGATIVE) 01/14/22 01/14/22 Range/Units 22:43 22:30 WBC (4.0-10.5) K/mm3 RBC (4.1-5.4) M/mm3 Hgb (12.0-16.0) gm/dl Hct (35-47) % MCV (78-100) fl MCH (26-32) pg MCHC (32-36) g/dl RDW (11.5-14.0) % Plt Count (150-450) K/mm3 MPV (7.5-11.0) fl Gran % (36.0-66.0) % Eos # (Auto) (0-0.5) Absolute Lymphs (auto) (1.0-4.6) Absolute Monos (auto) (0.0-1.3) Lymphocytes % (24.0-44.0) % Monocytes % (0.0-12.0) % Eosinophils % (0.00-5.0) % Basophils % (0.0-0.4) % Absolute Granulocytes (1.4-6.9) Basophils # (0-0.4) D-Dimer (215-500) ng/mL Sodium (137-145) mmol/L Potassium (3.5-5.1) mmol/L Chloride (98-107) mmol/L Carbon Dioxide (22-30) mmol/L Anion Gap (5-15) MEQ/L BUN (7-17) mg/dL Creatinine (0.52-1.04) mg/dL Estimated GFR ML/MIN Glucose (74-106) mg/dL Calcium (8.4-10.2) mg/dL Total Bilirubin (0.2-1.3) mg/dL AST (14-36) U/L ALT (0-35) U/L Alkaline Phosphatase (38-126) U/L Troponin I (0.000-0.034) ng/mL Serum Total Protein (6.3-8.2) g/dL Albumin (3.5-5.0) g/dL TSH 3rd Generation (0.47-4.68) mIU/L Urinalys Dipstick Clnc Urine Color (YELLOW) Urine Appearance (CLEAR) Urine pH (5-6) Ur Specific [place] (1.005-1.025) POC Urine Protein Conf (Negative) Urine Ketones (NEGATIVE) Urine Nitrite (NEGATIVE) Urine Bilirubin (NEGATIVE) Urine Urobilinogen (0-1) mg/dL Urine Leukocytes (NEGATIVE) Urine WBC (Auto) (0-5) /HPF Urine RBC (Auto) (0-2) /HPF U Epithel Cells (Auto) (FEW) /HPF Urine Bacteria (Auto) (NEGATIVE) /HPF Urine RBC (0-5) Demar/ul Ur Culture Indicated? Urine Glucose (NEGATIVE) mg/dL Urine HCG, Qual NEGATIVE (Negative) Group A Strep Antibody NOT DETECTED (NEGATIVE) - Progress Progress: improved Progress Note: Patient reassessed. She is well. Patient maintains a mild tachycardia. Heart rate decreased down to 104. Patient asymptomatic. D-dimer negative. Troponin negative. Chest x-ray negative. Mild leukocytosis. However no source of infection. No fever. No pain. Patient in good spirits. Patient has had sinus tachycardia in the past. Patient was previously on a beta-earline which was at some point discontinued for unknown reasons. Patient will follow up with her [facility] doctor within 48 hours. Patient may need to be restarted on a beta- earline. TSH normal. Mother at bedside. They voiced no other complaints at this time. Portions of this note were created with voice recognition technology. There may be grammatical, spelling, punctuation or sound alike errors 01/15/22 01:[address] Rubin Counseled pt/family regarding: lab results, diagnosis, need for follow-up, rad results - Departure Departure Disposition: Home Clinical Impression: Heart palpitations, Anxiety Condition: Stable Critical Care Time: No Referrals: JULISA SMITH NP [Primary Care Provider] - Follow up/PCP as directed Additional Instructions: Discharge/Care Plan JIMY YOO was seen on 01/15/22 in the Emergency Room. The patient was counseled regarding Diagnosis,Lab results, Imaging studies, need for follow up and when to return to the Emergency Room. Prescriptions given: Discharge Note I have spoken with the patient and/or caregivers. I have explained the patient's condition, diagnosis and treatment plan based on the information available to me at this time. I have answered the patient's and/or caregiver's questions and addressed any concerns. The patient and/or caregivers have as good understanding of the patient's diagnosis, condition and treatment plan as can be expected at this point. The vital signs have been stable. The patient's condition is stable and appropriate for discharge from the emergency department. The patient will pursue further outpatient evaluation with the primary care physician or other designated or consulting physician as outlined in the discharge instructions. The patient and/or caregivers are agreeable to this plan of care and follow-up instructions have been explained in detail. The patient and/or caregivers have received these instruction. The patient/and or caregivers are aware that any significant change in condition or worsening of symptoms should prompt an immediate return to this or the closest emergency department or call 911.
[2022-01-15 01:07] VITALS: BP 133/76
[2022-01-15 01:16] VITALS: PULSE 104
[2022-01-15 08:46] LABS: Amphetamine,Urine NEGATIVE (NEGATIVE); Barbiturate,Urine NEGATIVE (NEGATIVE); Benzodiazepine,Urine NEGATIVE (NEGATIVE); Cocaine,Urine NEGATIVE (NEGATIVE); Methadone,Urine NEGATIVE (NEGATIVE); Opiate,Urine NEGATIVE (NEGATIVE); PCP,Urine NEGATIVE (NEGATIVE); THC,Urine NEGATIVE (NEGATIVE)
--- NOTE | 2022-01-15 09:05 | XRAY ---
Indication: Palpitations. Comparison: September 23, 2019. Portable apical lordotic chest again demonstrates normal heart, lungs, and bony thorax.
== END 2022-01-15 01:18 | disposition home or self-care (01) ==
LOC: ED 21:46
DX: R00.2 Palpitations (principal); F41.9 Anxiety disorder, unspecified; J02.9 Acute pharyngitis, unspecified; R05.1 Acute cough; Z79.899 Other long term (current) drug therapy
CPT/HCPCS: 36000; 36415; 71045; 80053; 80307; 81015; 84443; 84484; 84703; 85025; 85379; 87651; 93005; 93041; 94760; 99284

== ENCOUNTER 2022-01-15 03:52 | Emergency (ER) | payer OTHER ==
[2022-01-15] MEDS ORDERED: xanAX 0.25 MG PO ONE (04:05)
[2022-01-15] MEDS ORDERED: xanAX 0.25 MG ONE (04:06)
--- NOTE | 2022-01-15 04:31 | ERPHSYRPT ---
- History of Present Illness Time Seen by Provider: 01/15/22 04:10 Source: patient Exam Limitations: no limitations Patient Subjective Stated Complaint: Pt states "After I left here I tried to go to bed and I couldn't sleep, I got really shakey all over again like I was fr eezing but I had 2 blankets on" Triage Nursing Assessment: Pt ambulates to cot by self, pt was seen here earlier иван for same complaint of feeling shakey and tachycardia, pt was discharged after workup was done including labs, xray, and vital signs monitoring, pt denies SOB or chest pain at this time, no new symptoms from the visit yasmeen oates Physician History: Patient is 26-year-old female presents to our ED for feeling shaky and cold. Patient was discharged from our emergency department approximately 3 hours ago. Patient was here for the same complaint. Patient felt her heart race, patient became shaky and and came to our ED for evaluation. Patient's work-up entailed basic labs CBC, CMP D-dimer troponin EKG chest x-ray TSH urinalysis, rapid strep and work-up was essentially nonremarkable. Patient has had tachycardia in the past for which she was treated with beta-earline. Patient is with mother. Patient appears anxious. Patient denies pain. No shortness of breath. No nausea or vomiting. No diarrhea. No rash. Patient is healthy otherwise. She voices no other complaints or concerns at this time. Timing/Duration: today Severity: moderate Modifying Factors: Improves With: nothing Associated Symptoms: chills, No nausea, No vomiting, No abdominal pain, No shortness of breath, No diaphoresis, No cough, No fever, No loss of appetite, No syncope, No seizure, No weakness Allergies/Adverse Reactions: sulfamethoxazole [From Bactrim DS] Allergy (Severe, Verified 01/14/22 22:22) RAPID HEART RATE trimethoprim [From Bactrim DS] Allergy (Severe, Verified 01/14/22 22:22) RAPID HEART RATE diphenhydramine HCl [From Benadryl] Allergy (Intermediate, Verified 01/14/22 22:22) "OVER-REACTS AND ACTS DRUNK" Home Medications: Metformin HCl 500 mg [Glucophage 500 MG] 1 tab PO DAILY 01/14/22 [History] Hx Tetanus, Diphtheria Vaccination/Date Given: Yes Hx Influenza Vaccination/Date Given: No Hx Pneumococcal Vaccination/Date Given: No Immunizations Up to Date: Yes Travel Risk - International Travel Have you traveled outside of the country in past 3 weeks: No - Coronavirus Screening Are you exhibiting any of the following symptoms?: No - Vaccine Status Have you recieved a Covid-19 vaccination: No - Review of Systems Constitutional: No Symptoms, No Fever, No Chills Eyes: No Symptoms Ears, Nose, & Throat: No Symptoms Respiratory: No Symptoms, No Cough, No Dyspnea Cardiac: No Symptoms, No Chest Pain, No Edema, No Syncope Abdominal/Gastrointestinal: No Symptoms, No Abdominal Pain, No Nausea, No Vomiting, No Diarrhea Genitourinary Symptoms: No Symptoms, No Dysuria Musculoskeletal: No Symptoms, No Back Pain, No Neck Pain Skin: No Symptoms, No Rash Neurological: No Symptoms, No Dizziness, No Focal Weakness, No Sensory Changes Psychological: No Symptoms Endocrine: No Symptoms Hematologic/Lymphatic: No Symptoms Immunological/Allergic: No Symptoms All Other Systems: Reviewed and Negative - Past Medical History Pertinent Past Medical History: Yes Neurological History: No Pertinent History ENT History: No Pertinent History Cardiac History: No Pertinent History Respiratory History: No Pertinent History Endocrine Medical History: No Pertinent History Musculoskeletal History: No Pertinent History GI Medical History: No Pertinent History History: No Pertinent History Psycho-Social History: Anxiety, Bipolar, Panic Disorder Female Reproductive Disorders: Other Other Medical History: fast heart rate. PCOS - Past Surgical History Past Surgical History: No Neuro Surgical History: No Pertinent History Cardiac: No Pertinent History Respiratory: No Pertinent History Gastrointestinal: No Pertinent History Genitourinary: No Pertinent History Musculoskeletal: No Pertinent History Female Surgical History: No Pertinent History - Social History Smoking Status: Never smoker Exposure to second hand smoke: Yes Alcohol Use: None Drug Use: none Patient Lives Alone: No Significant Family History: no pertinent family hx - Female History Hx Now: No - Nursing Vital Signs Nursing Vital Signs: Initial Vital Signs Temperature 98.4 F 01/15/22 04:04 Pulse Rate 145 H 01/15/22 04:04 Respiratory Rate 16 01/15/22 04:04 Blood Pressure 159/96 01/15/22 04:04 O2 Sat by Pulse Oximetry 100 01/15/22 04:04 Pain Scale Pain Intensity 0 - Physical Exam General Appearance: no apparent distress, alert Eye Exam: PERRL/EOMI, eyes nml inspection Ears, Nose, Throat Exam: normal ENT inspection, TMs normal, pharynx normal, moist mucous membranes Neck Exam: normal inspection, non-tender, supple, full range of motion Respiratory Exam: normal breath sounds, lungs clear, airway intact, No respiratory distress Cardiovascular Exam: regular rate/rhythm, normal heart sounds, normal peripheral pulses Gastrointestinal/Abdomen Exam: soft, normal bowel sounds, No tenderness, No mass Back Exam: normal inspection, normal range of motion, No CVA tenderness, No vertebral tenderness Extremity Exam: normal inspection, normal range of motion, pelvis stable Neurologic Exam: alert, oriented x 3, cooperative, 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, normal mood/affect, nml cerebellar function, nml station & gait, sensation nml, No motor deficits Skin Exam: normal color, warm, dry, No rash Lymphatic Exam: No adenopathy SpO2 Interpretation: normal SpO2: 100 O2 Delivery: Room Air - Course Nursing assessment & vital signs reviewed: Yes Ordered Tests: Medication Summary Discontinued Medications Generic Name Dose Route Start Last Admin Trade Name Jose Luis PRN Reason Stop Dose Admin Alprazolam 0.25 mg 01/15/22 04:05 01/15/22 04:07 Alprazolam 0.25 Mg Tablet PO 01/15/22 04:06 0.25 mg STAT ONE Administration Alprazolam Confirm 01/15/22 04:06 Alprazolam 0.25 Mg Tablet Administered 01/15/22 04:07 Dose 0.25 mg .ROUTE .STK-MED ONE - Progress Progress: improved Progress Note: Patient reassessed. She is well. Patient slept in our ED for a couple hours. Patient had no episodes of jitteriness shakiness or anxiety. Will discharge patient home. Patient currently asymptomatic. It is likely patient will need to be started on a beta-earline for long-term heart rate control. Patient will see Shakila Mercado today for evaluation. Mother bedside. They voiced no other complaints or concerns at this time. Patient states he is ready for discharge. Portions of this note were created with voice recognition technology. There may be grammatical, spelling, punctuation or sound alike errors 01/15/22 06:26 Counseled pt/family regarding: diagnosis, need for follow-up - Departure Departure Disposition: Home Clinical Impression: Jittery feeling, Tachycardia, Anxiety Condition: Stable Critical Care Time: No Referrals: JULISA MERCADO, HERNANDEZ [Primary Care Provider] - Follow up/PCP as directed Additional Instructions: Please follow-up with Shakila Mercado's office today for follow-up appointment. Discharge/Care Plan JIMY YOO was seen on 01/15/22 in the Emergency Room. The patient was counseled regarding Diagnosis,Lab results, Imaging studies, need for follow up and when to return to the Emergency Room. Prescriptions given: Discharge Note I have spoken with the patient and/or caregivers. I have explained the patient's condition, diagnosis and treatment plan based on the information available to me at this time. I have answered the patient's and/or caregiver's questions and addressed any concerns. The patient and/or caregivers have as good understanding of the patient's diagnosis, condition and treatment plan as can be expected at this point. The vital signs have been stable. The patient's condition is stable and appropriate for discharge from the emergency department. The patient will pursue further outpatient evaluation with the primary care physician or other designated or consulting physician as outlined in the discharge instructions. The patient and/or caregivers are agreeable to this plan of care and follow-up instructions have been explained in detail. The patient and/or caregivers have received these instruction. The patient/and or caregivers are aware that any significant change in condition or worsening of symptoms should prompt an immediate return to this or the closest emergency department or call 911.
[2022-01-15 06:05] VITALS: BP 112/84
[2022-01-15 06:23] VITALS: PULSE 100
[2022-01-15 06:30] VITALS: O2SAT 100
== END 2022-01-15 06:36 | disposition home or self-care (01) ==
LOC: ED 03:52
DX: R00.0 Tachycardia, unspecified (principal); F41.9 Anxiety disorder, unspecified; R45.1 Restlessness and agitation; R68.83 Chills (without fever)
CPT/HCPCS: 99283; A9270-GY

== ENCOUNTER 2022-01-25 13:34 | Emergency (ER) | payer OTHER ==
[2022-01-25 14:19] LABS: Absolute Neutrophil Ct (ANC) 4.81 (1.4-6.9); Basophil (Absolute #) 0.03 (0-0.4); Eosinophil % 1.5 % (0.00-5.0); Eosinophil (Absolute #) 0.13 (0-0.5); Hematocrit 43.6 % (35-47); Hemoglobin 14.6 gm/dl (12.0-16.0); Lymphocyte (Absolute #) 2.79 (1.0-4.6); Lymphocytes % 33.2 % (24.0-44.0); Mean Cell Volume 88.6 fl (78-100); Mean Corpuscular Hemoglobin 29.7 pg (26-32); Mean Corpuscular Hgb Concent. 33.5 g/dl (32-36); Monocyte (Absolute #) 0.64 (0.0-1.3); Monocytes % 7.6 % (0.0-12.0); Neutrophil % 57.3 % (36.0-66.0); Platelet Count 499 K/mm3 (150-450); Red Blood Count 4.92 M/mm3 (4.1-5.4); Red Cell Distribution Width 13.2 % (11.5-14.0); White Blood Count 8.4 K/mm3 (4.0-10.5)
[2022-01-25 14:29] LABS: INR 1.01 (0.8-3.0); PROTIME 11.9 SECONDS (9.4-12.5)
--- NOTE | 2022-01-25 14:29 | ERPHSYRPT ---
- History of Present Illness Historian: patient Exam Limitations: no limitations Patient Subjective Stated Complaint: pt here for fast heart rate, she states it has been an ongoing problem, and has been placed on a new medications, is seeing a pickers material handlers Triage Nursing Assessment: pt alert, skin w/d/p. she is anxious over not feeling well, face mask in place . resp easy, no edema, no cough Physician History: 26 yo wf w h/o palpitations x 2 wks presents w palpitations while at work before ER arrival. Pt in sinus tachycardia upon arrival which quickly became a NSR wo treatment. She states that she has had a Holter monitor which possibly demonstrated SVT and was started on Lopressor 12.5mg BID by her PCP. Pt is scheduled to see a pickers material handlers in January. She denies chest pain but had mild dyspnea w her palpatations. N/V/Diaphoresis are all denied, along w HTN/DM/Hyperlipidemia/Tobacco use. Timing/Duration: other (Before arrival) Activities at Onset: rest Quality: other (No pain) Modifying Factors: Improves With: palpation. Worsens With: breathing, coughing, defecating, eating, exertion, lying down, morphine, movement, nitroglycerin, oxygen, rest, aspirin, sitting up, change in position Associated Symptoms: denies symptoms Prior Chest Pain/Cardiac Workup: no prior chest pain Nitro Today/Relief: no nitro taken today Aspirin Treatment Today: no aspirin today Allergies/Adverse Reactions: sulfamethoxazole [From Bactrim DS] Allergy (Severe, Verified 01/25/22 13:45) RAPID HEART RATE trimethoprim [From Bactrim DS] Allergy (Severe, Verified 01/25/22 13:45) RAPID HEART RATE diphenhydramine HCl [From Benadryl] Allergy (Intermediate, Verified 01/25/22 13:45) "OVER-REACTS AND ACTS DRUNK" Home Medications: Metformin HCl 500 mg [Glucophage 500 MG] 1 tab PO DAILY 01/14/22 [History] Metoprolol Succinate 25 mg PO DAILY 01/25/22 [History] Hx Tetanus, Diphtheria Vaccination/Date Given: Yes Hx Influenza Vaccination/Date Given: No Hx Pneumococcal Vaccination/Date Given: No Immunizations Up to Date: Yes Travel Risk - International Travel Have you traveled outside of the country in past 3 weeks: No - Coronavirus Screening Are you exhibiting any of the following symptoms?: No Close contact with a COVID-19 positive Pt in past 14-21 Days: No - Vaccine Status Have you recieved a Covid-19 vaccination: No - Review of Systems Constitutional: No Symptoms Eyes: No Symptoms Ears, Nose, & Throat: No Symptoms Respiratory: No Symptoms Cardiac: No Symptoms, Palpitations Abdominal/Gastrointestinal: No Symptoms Genitourinary Symptoms: No Symptoms Musculoskeletal: No Symptoms Skin: No Symptoms Neurological: No Symptoms Psychological: No Symptoms Endocrine: No Symptoms Hematologic/Lymphatic: No Symptoms Immunological/Allergic: No Symptoms - Past Medical History Pertinent Past Medical History: Yes Neurological History: No Pertinent History ENT History: No Pertinent History Cardiac History: No Pertinent History Respiratory History: No Pertinent History Endocrine Medical History: No Pertinent History Musculoskeletal History: No Pertinent History GI Medical History: No Pertinent History History: No Pertinent History Psycho-Social History: Anxiety, Bipolar, Panic Disorder Female Reproductive Disorders: Other Other Medical History: fast heart rate. PCOS - Past Surgical History Past Surgical History: No Neuro Surgical History: No Pertinent History Cardiac: No Pertinent History Respiratory: No Pertinent History Gastrointestinal: No Pertinent History Genitourinary: No Pertinent History Musculoskeletal: No Pertinent History Female Surgical History: No Pertinent History - Social History Smoking Status: Never smoker Exposure to second hand smoke: Yes Alcohol Use: None Drug Use: none Patient Lives Alone: No Significant Family History: no pertinent family hx - Female History Hx Last Menstrual Period: this week Hx Now: No - Nursing Vital Signs Nursing Vital Signs: Initial Vital Signs Temperature 98.2 F 01/25/22 13:37 Pulse Rate 124 H 01/25/22 13:37 Respiratory Rate 22 01/25/22 13:37 Blood Pressure 122/83 01/25/22 13:37 O2 Sat by Pulse Oximetry 100 01/25/22 13:37 Pain Scale Pain Intensity 0 Tachy - Physical Exam General Appearance: no apparent distress, anxiety Eye Exam: PERRL/EOMI, eyes nml inspection Ears, Nose, Throat Exam: normal ENT inspection, TMs normal, pharynx normal, moist mucous membranes Neck Exam: normal inspection, non-tender, supple, full range of motion, No meningismus, No mass, No Brudzinski, No Kernig's Respiratory Exam: normal breath sounds, lungs clear, airway intact, No respiratory distress Cardiovascular Exam: regular rate/rhythm (Slightly after arrival), capillary refill <2 sec, No murmur Gastrointestinal/Abdomen Exam: soft, normal bowel sounds, No tenderness Back Exam: normal inspection, normal range of motion Extremity Exam: normal inspection, normal range of motion Neurologic Exam: alert, oriented x 3, 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, 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, normal mood/affect, nml cerebellar function, nml station & gait, sensation nml, No motor deficits, No sensory deficit Skin Exam: normal color, warm, dry Lymphatic Exam: No adenopathy SpO2 Interpretation: normal SpO2: 100 O2 Delivery: Room Air - Course Nursing assessment & vital signs reviewed: Yes EKG Interpreted by Me: RATE (Sinus tach/Mildly prolonged QTc/Flat Twaves/Low voltage) Ordered Tests: Active Orders 24 hr Category Date Time Status Secured Entrance Monitor STAT Care 01/25/22 14:51 Completed EKG-ER Only STAT Care 01/25/22 14:51 Completed IV Insertion STAT Care 01/25/22 14:51 Completed CBC W DIFF Stat Lab 01/25/22 13:40 Completed CMP Stat Lab 01/25/22 13:40 Completed NT PRO BNP Stat Lab 01/25/22 13:40 Completed PROTIME WITH INR Stat Lab 01/25/22 13:40 Completed PTT Stat Lab 01/25/22 13:40 Completed TROPONIN Q3H Lab 01/25/22 13:40 Completed Lab/Rad Data: Laboratory Result Diagrams 01/25/22 13:40 01/25/22 13:40 Laboratory Results 01/25/22 01/25/22 01/25/22 Range/Units 13:40 13:40 13:40 WBC (4.0-10.5) K/mm3 RBC (4.1-5.4) M/mm3 Hgb (12.0-16.0) gm/dl Hct (35-47) % MCV (78-100) fl MCH (26-32) pg MCHC (32-36) g/dl RDW (11.5-14.0) % Plt Count (150-450) K/mm3 MPV (7.5-11.0) fl Gran % (36.0-66.0) % Eos # (Auto) (0-0.5) Absolute Lymphs (auto) (1.0-4.6) Absolute Monos (auto) (0.0-1.3) Lymphocytes % (24.0-44.0) % Monocytes % (0.0-12.0) % Eosinophils % (0.00-5.0) % Basophils % (0.0-0.4) % Absolute Granulocytes (1.4-6.9) Basophils # (0-0.4) PT 11.9 (9.4-12.5) SECONDS INR 1.01 (0.8-3.0) APTT 35.3 (25.1-36.5) SECONDS Sodium 141 (137-145) mmol/L Potassium 3.8 (3.5-5.1) mmol/L Chloride 105 (98-107) mmol/L Carbon Dioxide 21 L (22-30) mmol/L Anion Gap 18.8 H (5-15) MEQ/L BUN 15 (7-17) mg/dL Creatinine 0.58 (0.52-1.04) mg/dL Estimated GFR > 60.0 ML/MIN Glucose 106 (74-106) mg/dL Calcium 10.2 (8.4-10.2) mg/dL Total Bilirubin 0.50 (0.2-1.3) mg/dL AST 26 (14-36) U/L ALT 27 (0-35) U/L Alkaline Phosphatase 84 (38-126) U/L Troponin I < 0.012 (0.000-0.034) ng/mL NT-Pro-B Natriuret Pep 24.7 (0-450) pg/mL Serum Total Protein 8.0 (6.3-8.2) g/dL Albumin 4.9 (3.5-5.0) g/dL 01/25/22 Range/Units 13:40 WBC 8.4 (4.0-10.5) K/mm3 RBC 4.92 (4.1-5.4) M/mm3 Hgb 14.6 (12.0-16.0) gm/dl Hct 43.6 (35-47) % MCV 88.6 (78-100) fl MCH 29.7 (26-32) pg MCHC 33.5 (32-36) g/dl RDW 13.2 (11.5-14.0) % Plt Count 499 H (150-450) K/mm3 MPV 9.0 (7.5-11.0) fl Gran % 57.3 (36.0-66.0) % Eos # (Auto) 0.13 (0-0.5) Absolute Lymphs (auto) 2.79 (1.0-4.6) Absolute Monos (auto) 0.64 (0.0-1.3) Lymphocytes % 33.2 (24.0-44.0) % Monocytes % 7.6 (0.0-12.0) % Eosinophils % 1.5 (0.00-5.0) % Basophils % 0.4 (0.0-0.4) % Absolute Granulocytes 4.81 (1.4-6.9) Basophils # 0.03 (0-0.4) PT (9.4-12.5) SECONDS INR (0.8-3.0) APTT (25.1-36.5) SECONDS Sodium (137-145) mmol/L Potassium (3.5-5.1) mmol/L Chloride (98-107) mmol/L Carbon Dioxide (22-30) mmol/L Anion Gap (5-15) MEQ/L BUN (7-17) mg/dL Creatinine (0.52-1.04) mg/dL Estimated GFR ML/MIN Glucose (74-106) mg/dL Calcium (8.4-10.2) mg/dL Total Bilirubin (0.2-1.3) mg/dL AST (14-36) U/L ALT (0-35) U/L Alkaline Phosphatase (38-126) U/L Troponin I (0.000-0.034) ng/mL NT-Pro-B Natriuret Pep (0-450) pg/mL Serum Total Protein (6.3-8.2) g/dL Albumin (3.5-5.0) g/dL - Progress Progress: improved Progress Note: 01/25/22 15:17 Pt in NSR during majority of stay. No ectopy observed. Counseled pt/family regarding: lab results, diagnosis, need for follow-up - Departure Departure Disposition: Home Clinical Impression: Heart palpitations Condition: Stable Critical Care Time: No Referrals: JULISA SMITH NP [Primary Care Provider] - Follow up/PCP as directed Instructions: Arrhythmias (DC), Palpitations (DC) Additional Instructions: Follow up with your family MD early next week Increase Lopressor to 25mg twice a day Return to ER for sustained heart rate greater than 120, chest pain, or increasing shortness of breath Prescriptions: Metoprolol Tartrate 25 mg [Lopressor 25MG Tab] 25 mg PO BID #60 tab
[2022-01-25 14:32] LABS: PTT 35.3 SECONDS (25.1-36.5)
[2022-01-25 14:42] LABS: ALBUMIN 4.9 g/dL (3.5-5.0); ALKALINE PHOSPHATASE 84 U/L (38-126); ANION GAP 18.8 MEQ/L (5-15); BLOOD UREA NITROGEN 15 mg/dL (7-17); CHLORIDE 105 mmol/L (98-107); Calcium 10.2 mg/dL (8.4-10.2); Carbon Dioxide 21 mmol/L (22-30); Creatinine 1 0.58 mg/dL (0.52-1.04); EST GLOMERULAR FILTRATION RATE > 60.0 ML/MIN; Glucose 106 mg/dL (74-106); NT PRO BNP 24.7 pg/mL (0-450); Potassium 3.8 mmol/L (3.5-5.1); SGOT/AST 26 U/L (14-36); SGPT/ALT 27 U/L (0-35); SODIUM 141 mmol/L (137-145)
[2022-01-25 15:34] VITALS: BP 127/66; PULSE 76
[2022-01-25 17:36] VITALS: O2SAT 100
== END 2022-01-25 15:35 | disposition home or self-care (01) ==
LOC: ED 13:34
DX: R00.2 Palpitations (principal); R06.00 Dyspnea, unspecified; Z79.899 Other long term (current) drug therapy
CPT/HCPCS: 36000; 36415; 80053; 83880; 84484; 85025; 85610; 85730; 93005; 93041; 99284

== ENCOUNTER 2022-02-02 12:33 | Emergency (ER) | payer OTHER ==
[2022-02-02 12:48] VITALS: O2SAT 98
[2022-02-02] MEDS ORDERED: BABY ASPIRIN 81 MG CHEW PO ONE (13:26)
[2022-02-02] MEDS ORDERED: Sodium Chloride 0.9% 1000 ML 1,000 ML IV STA (13:26)
[2022-02-02] MEDS ORDERED: Pepcid 20 MG VIAL IV ONE ×2 (13:26→13:36)
[2022-02-02] MEDS ORDERED: Sodium Chloride 0.9% 1000 ML 1,000 ML ONE (13:36)
[2022-02-02] MEDS ORDERED: BABY ASPIRIN 81 MG CHEW ONE (13:36)
[2022-02-02 13:46] LABS: Absolute Neutrophil Ct (ANC) 5.13 (1.4-6.9); Basophil (Absolute #) 0.02 (0-0.4); Eosinophil % 1.6 % (0.00-5.0); Eosinophil (Absolute #) 0.14 (0-0.5); Hematocrit 42.7 % (35-47); Hemoglobin 14.1 gm/dl (12.0-16.0); Lymphocyte (Absolute #) 2.49 (1.0-4.6); Lymphocytes % 29.3 % (24.0-44.0); Mean Cell Volume 89.1 fl (78-100); Mean Corpuscular Hemoglobin 29.4 pg (26-32); Mean Platelet Volume 9.1 fl (7.5-11.0); Monocyte (Absolute #) 0.71 (0.0-1.3); Monocytes % 8.4 % (0.0-12.0); Neutrophil % 60.5 % (36.0-66.0); Platelet Count 459 K/mm3 (150-450); Red Blood Count 4.79 M/mm3 (4.1-5.4); Red Cell Distribution Width 13.6 % (11.5-14.0); White Blood Count 8.5 K/mm3 (4.0-10.5)
--- NOTE | 2022-02-02 13:55 | ERPHSYRPT ---
- History of Present Illness Time Seen by Provider: 02/02/22 13:24 Historian: patient Exam Limitations: no limitations Patient Subjective Stated Complaint: Tachycardia Triage Nursing Assessment: Patient brought into ED via EMS and transferred to be d per self. Patient A+O X 3. Patient's skin pink, warm and dry. Patient states she was dx with SVT in the past month and today she woke up around 1130 and she started feeling dizzy and weak. She stated then she started having intermittent chest pain her heart started to race. Patient was unable to walk or hold head up. Patient currently denies pain or discomfort. Physician History: 26-year-old female recently diagnosed with SVT on metoprolol twice daily presented in the ER with intermittent palpitations and some twinging sensation in the left chest since 11:30 AM today, mild to moderate intensity and feeling dizzy lightheaded during the episode and while standing up. Currently patient is symptom-free. Denies any fever chills cough/shortness of breath. Patient reports she feels her heartbeat is really fast and sometimes skipping beats. She does have appointment with cardiology day after tomorrow. Denies any alcohol/drug use. Does have history of anxiety but has been taken off of medication recently. Timing/Duration: today, intermittent, sudden, improved Activities at Onset: rest Quality: fullness Chest Pain Radiation: no radiation Severity of Pain-Max: moderate Severity of Pain-Current: mild Modifying Factors: Worsens With: palpation, change in position Associated Symptoms: denies symptoms Prior Chest Pain/Cardiac Workup: no prior chest pain Nitro Today/Relief: no nitro taken today Aspirin Treatment Today: no aspirin today Allergies/Adverse Reactions: sulfamethoxazole [From Bactrim DS] Allergy (Severe, Verified 02/02/22 12:40) RAPID HEART RATE trimethoprim [From Bactrim DS] Allergy (Severe, Verified 02/02/22 12:40) RAPID HEART RATE diphenhydramine HCl [From Benadryl] Allergy (Intermediate, Verified 02/02/22 12:40) "OVER-REACTS AND ACTS DRUNK" Hx Tetanus, Diphtheria Vaccination/Date Given: Yes Hx Influenza Vaccination/Date Given: No Hx Pneumococcal Vaccination/Date Given: No Immunizations Up to Date: Yes Travel Risk - International Travel Have you traveled outside of the country in past 3 weeks: No - Coronavirus Screening Are you exhibiting any of the following symptoms?: No Close contact with a COVID-19 positive Pt in past 14-21 Days: No - Vaccine Status Have you recieved a Covid-19 vaccination: No - Review of Systems Constitutional: No Symptoms Eyes: No Symptoms Ears, Nose, & Throat: No Symptoms Respiratory: No Symptoms Cardiac: Chest Pain, Palpitations Abdominal/Gastrointestinal: No Symptoms Genitourinary Symptoms: No Symptoms Musculoskeletal: No Symptoms Skin: No Symptoms Neurological: Dizziness Psychological: Anxiety Endocrine: No Symptoms Hematologic/Lymphatic: No Symptoms Immunological/Allergic: No Symptoms - Past Medical History Pertinent Past Medical History: Yes Neurological History: No Pertinent History ENT History: No Pertinent History Cardiac History: No Pertinent History Respiratory History: No Pertinent History Endocrine Medical History: No Pertinent History Musculoskeletal History: No Pertinent History GI Medical History: No Pertinent History History: No Pertinent History Psycho-Social History: Anxiety, Bipolar, Panic Disorder Female Reproductive Disorders: Other Other Medical History: fast heart rate. PCOS - Past Surgical History Past Surgical History: No Neuro Surgical History: No Pertinent History Cardiac: No Pertinent History Respiratory: No Pertinent History Gastrointestinal: No Pertinent History Genitourinary: No Pertinent History Musculoskeletal: No Pertinent History Female Surgical History: No Pertinent History - Social History Smoking Status: Never smoker Exposure to second hand smoke: Yes Alcohol Use: None Drug Use: none Patient Lives Alone: No Significant Family History: no pertinent family hx - Female History Hx Last Menstrual Period: two weeks ago Hx Now: (unkn) - Nursing Vital Signs Nursing Vital Signs: Initial Vital Signs Temperature 98.6 F 02/02/22 12:41 Pulse Rate 90 02/02/22 12:41 Respiratory Rate 18 02/02/22 12:41 Blood Pressure 135/74 02/02/22 12:41 O2 Sat by Pulse Oximetry 98 02/02/22 12:41 Pain Scale Pain Intensity 0 - Physical Exam General Appearance: no apparent distress, alert, anxiety Eye Exam: PERRL/EOMI, eyes nml inspection Ears, Nose, Throat Exam: normal ENT inspection, TMs normal, pharynx normal, moist mucous membranes Neck Exam: normal inspection, non-tender, supple, full range of motion Respiratory Exam: normal breath sounds, lungs clear Cardiovascular Exam: regular rate/rhythm, normal heart sounds Gastrointestinal/Abdomen Exam: soft, normal bowel sounds, No tenderness Back Exam: normal inspection, normal range of motion Extremity Exam: normal inspection, normal range of motion Neurologic Exam: alert, oriented x 3, cooperative, door furring installer II-XII nml as tested, nml cerebellar function, nml station & gait, sensation nml, No normal mood/affect (Anxious) Skin Exam: normal color SpO2 Interpretation: normal SpO2: 98 O2 Delivery: Room Air - Course EKG Interpreted by Me: RATE ([id number]), Sinus Rhythm, NORMAL AXIS, NORMAL INTERVALS, Non-specific ST Changes, Other (Nonspecific T wave changes) Ordered Tests: Active Orders 24 hr Category Date Time Status Employment Coach STAT Care 02/02/22 13:26 Completed EKG-ER Only STAT Care 02/02/22 13:26 Completed IV Insertion STAT Care 02/02/22 13:26 Completed CHEST 1 VIEW (PORTABLE) Stat Exams 02/02/22 13:26 Taken CBC W DIFF Stat Lab 02/02/22 13:15 Completed CMP Stat Lab 02/02/22 13:15 Completed NT PRO BNP Stat Lab 02/02/22 13:15 Completed TROPONIN Q3H Lab 02/02/22 13:15 Completed TROPONIN Q3H Lab 02/02/22 16:49 Completed Medication Summary Discontinued Medications Generic Name Dose Route Start Last Admin Trade Name Freq PRN Reason Stop Dose Admin Aspirin 324 mg 02/02/22 13:26 02/02/22 13:38 Aspirin 81 Mg Tab.Chew PO 02/02/22 13:27 324 mg STAT ONE Administration Aspirin Confirm 02/02/22 13:36 Aspirin 81 Mg Tab.Chew Administered 02/02/22 13:37 Dose 324 mg .ROUTE .STK-MED ONE Famotidine 20 mg 02/02/22 13:26 02/02/22 13:38 Famotidine 20 Mg/1 Vial IV 02/02/22 13:27 20 mg STAT ONE Administration Famotidine Confirm 02/02/22 13:36 Famotidine 20 Mg/1 Vial Administered 02/02/22 13:37 Dose 20 mg IV .STK-MED ONE Sodium Chloride 1,000 mls @ 999 mls/hr 02/02/22 13:26 02/02/22 14:45 Sodium Chloride 0.9% 1000 Ml IV 02/02/22 14:26 Infused .Q1H1M STA Infusion Sodium Chloride Confirm 02/02/22 13:36 Sodium Chloride 0.9% 1000 Ml Administered 05/07/22 13:37 Dose 1,000 mls @ ud .ROUTE .STK-MED ONE Lab/Rad Data: Laboratory Result Diagrams 02/02/22 13:15 02/02/22 13:15 Laboratory Results 02/02/22 02/02/22 02/02/22 Range/Units 16:49 13:15 13:15 WBC (4.0-10.5) K/mm3 RBC (4.1-5.4) M/mm3 Hgb (12.0-16.0) gm/dl Hct (35-47) % MCV (78-100) fl MCH (26-32) pg MCHC (32-36) g/dl RDW (11.5-14.0) % Plt Count (150-450) K/mm3 MPV (7.5-11.0) fl Gran % (36.0-66.0) % Eos # (Auto) (0-0.5) Absolute Lymphs (auto) (1.0-4.6) Absolute Monos (auto) (0.0-1.3) Lymphocytes % (24.0-44.0) % Monocytes % (0.0-12.0) % Eosinophils % (0.00-5.0) % Basophils % (0.0-0.4) % Absolute Granulocytes (1.4-6.9) Basophils # (0-0.4) Sodium 140 (137-145) mmol/L Potassium 3.5 (3.5-5.1) mmol/L Chloride 107 (98-107) mmol/L Carbon Dioxide 20 L (22-30) mmol/L Anion Gap 16.9 H (5-15) MEQ/L BUN 12 (7-17) mg/dL Creatinine 0.53 (0.52-1.04) mg/dL Estimated GFR > 60.0 ML/MIN Glucose 103 (74-106) mg/dL Calcium 9.4 (8.4-10.2) mg/dL Total Bilirubin 0.60 (0.2-1.3) mg/dL AST 25 (14-36) U/L ALT 26 (0-35) U/L Alkaline Phosphatase 87 (38-126) U/L Troponin I < 0.012 < 0.012 (0.000-0.034) ng/mL NT-Pro-B Natriuret Pep 27.8 (0-450) pg/mL Serum Total Protein 7.9 (6.3-8.2) g/dL Albumin 4.7 (3.5-5.0) g/dL 02/02/22 Range/Units 13:15 WBC 8.5 (4.0-10.5) K/mm3 RBC 4.79 (4.1-5.4) M/mm3 Hgb 14.1 (12.0-16.0) gm/dl Hct 42.7 (35-47) % MCV 89.1 (78-100) fl MCH 29.4 (26-32) pg MCHC 33.0 (32-36) g/dl RDW 13.6 (11.5-14.0) % Plt Count 459 H (150-450) K/mm3 MPV 9.1 (7.5-11.0) fl Gran % 60.5 (36.0-66.0) % Eos # (Auto) 0.14 (0-0.5) Absolute Lymphs (auto) 2.49 (1.0-4.6) Absolute Monos (auto) 0.71 (0.0-1.3) Lymphocytes % 29.3 (24.0-44.0) % Monocytes % 8.4 (0.0-12.0) % Eosinophils % 1.6 (0.00-5.0) % Basophils % 0.2 (0.0-0.4) % Absolute Granulocytes 5.13 (1.4-6.9) Basophils # 0.02 (0-0.4) Sodium (137-145) mmol/L Potassium (3.5-5.1) mmol/L Chloride (98-107) mmol/L Carbon Dioxide (22-30) mmol/L Anion Gap (5-15) MEQ/L BUN (7-17) mg/dL Creatinine (0.52-1.04) mg/dL Estimated GFR ML/MIN Glucose (74-106) mg/dL Calcium (8.4-10.2) mg/dL Total Bilirubin (0.2-1.3) mg/dL AST (14-36) U/L ALT (0-35) U/L Alkaline Phosphatase (38-126) U/L Troponin I (0.000-0.034) ng/mL NT-Pro-B Natriuret Pep (0-450) pg/mL Serum Total Protein (6.3-8.2) g/dL Albumin (3.5-5.0) g/dL - Progress Progress: improved Air Movement: good Progress Note: 02/02/22 17:47 26-year-old is evaluated for intermittent palpitations and some chest twinging sensation. EKG showed sinus rhythm with with nonspecific T wave changes but no ST elevations. Negative troponins x2. She is given aspirin, Pepcid and fluids, on reevaluation she is asymptomatic. Grossly unremarkable work-up otherwise. Low heart score and is more afraid anxiety/SVT related, does have appointment with cardiology day after tomorrow which she is advised to keep. I will give h er magnesium as it might will help with her palpitations. Discussed signs symptoms of worsening needing return to ER which she seems understanding. Stable for discharge. Blood Culture(s) Obtained: No Antibiotics given: No Counseled pt/family regarding: lab results, diagnosis, rad results - Departure Departure Disposition: Home Clinical Impression: Intermittent palpitations Condition: Stable Critical Care Time: No Referrals: JULISA SMITH NP [Primary Care Provider] - Follow up/PCP as directed (2 days for reevaluation) ARABELLA MARCANO [CONSULTING PHYSICIAN] - Follow up/PCP as directed (In 2 days as scheduled) Instructions: Supraventricular Tachycardia (SVT), Palpitations (DC) Additional Instructions: Keep appointment with cardiology for reevaluation in 2 days as scheduled. Return to ER for worsening palpitations or if having chest pain/shortness of breath etc. Prescriptions: Magnesium Oxide 400 mg [Mag-Ox 400] 400 mg PO BID #60 tablet
[2022-02-02 14:04] LABS: ALBUMIN 4.7 g/dL (3.5-5.0); ALKALINE PHOSPHATASE 87 U/L (38-126); ANION GAP 16.9 MEQ/L (5-15); BLOOD UREA NITROGEN 12 mg/dL (7-17); CHLORIDE 107 mmol/L (98-107); Calcium 9.4 mg/dL (8.4-10.2); Carbon Dioxide 20 mmol/L (22-30); Creatinine 1 0.53 mg/dL (0.52-1.04); EST GLOMERULAR FILTRATION RATE > 60.0 ML/MIN; Glucose 103 mg/dL (74-106); NT PRO BNP 27.8 pg/mL (0-450); Potassium 3.5 mmol/L (3.5-5.1); SGOT/AST 25 U/L (14-36); SGPT/ALT 26 U/L (0-35); SODIUM 140 mmol/L (137-145); Total Protein 7.9 g/dL (6.3-8.2)
[2022-02-02 17:54] VITALS: BP 140/88; PULSE 81
--- NOTE | 2022-02-02 20:30 | XRAY ---
Indication: Palpitations. Comparison: January 14, 2022. Portable chest again demonstrates normal heart, lungs, and bony thorax.
== END 2022-02-02 17:58 | disposition home or self-care (01) ==
LOC: ED 12:33
DX: R00.2 Palpitations (principal); R07.9 Chest pain, unspecified; Z79.899 Other long term (current) drug therapy
CPT/HCPCS: 36000; 36415; 71045; 80053; 83880; 84484; 85025; 93005; 93041; 96360; 96374; 99285; A9270-GY

== ENCOUNTER 2022-02-09 02:07 | Emergency (ER) | payer OTHER ==
[2022-02-09] MEDS ORDERED: BABY ASPIRIN 81 MG CHEW PO ONE (02:29)
--- NOTE | 2022-02-09 02:36 | ERPHSYRPT ---
- History of Present Illness Time Seen by Provider: 02/09/22 02:30 Historian: patient Exam Limitations: no limitations Patient Subjective Stated Complaint: C/O chest pain in the center of her chest that awoke her from her sleep. Pain started about 15 minutes prior to coming into the ED. Field Interviewer, Dr. Cook changed one of her medications approx one week ago and patient states that her "episodes" have become more frequent since then. Triage Nursing Assessment: Patient ambulated back to ED without difficulties; refused a wheelchair. Patient is alert and oriented and answering questions appropriately. No SOB noted. Physician History: This is a 26-year-old white female who has been worked up several times in the last month for SVT and chest pain symptoms. She has seen Dr. Cook, harp action assembler as recent as last week. She has been in the emergency department today, 02/02/2022, 01/25/2022, 01/15/2022, and 01/14/2022 for same symptoms. Her harp action assembler has ordered an echocardiogram of her heart on 02/11/2022. Patient has a history of anxiety, bipolar disorder and panic disorder. Recently, her harp action assembler stopped her metoprolol and put her on diltiazem. She feels that since the change occurred, she is having more frequent symptoms of tachycardia and chest pain. The symptoms occurred prior to arrival to the emergency department this morning and woke her up out of a sleep Timing/Duration: today Activities at Onset: sleep Quality: tightness Location: substernal, central Chest Pain Radiation: no radiation Severity of Pain-Max: mild Severity of Pain-Current: mild Modifying Factors: Improves With: nothing Associated Symptoms: denies symptoms Prior Chest Pain/Cardiac Workup: recently seen/treated Nitro Today/Relief: no nitro taken today Aspirin Treatment Today: no aspirin today Allergies/Adverse Reactions: sulfamethoxazole [From Bactrim DS] Allergy (Severe, Verified 02/09/22 02:13) RAPID HEART RATE trimethoprim [From Bactrim DS] Allergy (Severe, Verified 02/09/22 02:13) RAPID HEART RATE diphenhydramine HCl [From Benadryl] Allergy (Intermediate, Verified 02/09/22 02:13) "OVER-REACTS AND ACTS DRUNK" Home Medications: dilTIAZem HCL [Diltiazem HCl] 1 cap PO BID 02/09/22 [History] Hx Tetanus, Diphtheria Vaccination/Date Given: Yes Hx Influenza Vaccination/Date Given: No Hx Pneumococcal Vaccination/Date Given: No Immunizations Up to Date: Yes Travel Risk - International Travel Have you traveled outside of the country in past 3 weeks: No - Coronavirus Screening Are you exhibiting any of the following symptoms?: No Close contact with a COVID-19 positive Pt in past 14-21 Days: No - Vaccine Status Have you recieved a Covid-19 vaccination: No - Review of Systems Constitutional: No Symptoms Eyes: No Symptoms Ears, Nose, & Throat: No Symptoms Respiratory: No Symptoms Cardiac: Chest Pain, Palpitations Abdominal/Gastrointestinal: No Symptoms Genitourinary Symptoms: No Symptoms Musculoskeletal: No Symptoms Skin: No Symptoms Neurological: No Symptoms Psychological: No Symptoms Endocrine: No Symptoms Hematologic/Lymphatic: No Symptoms Immunological/Allergic: No Symptoms All Other Systems: Reviewed and Negative - Past Medical History Pertinent Past Medical History: Yes Neurological History: No Pertinent History ENT History: No Pertinent History Cardiac History: Other Respiratory History: No Pertinent History Endocrine Medical History: No Pertinent History Musculoskeletal History: No Pertinent History GI Medical History: No Pertinent History History: No Pertinent History Psycho-Social History: Anxiety, Bipolar, Panic Disorder Female Reproductive Disorders: Other Other Medical History: PCOS, tachycardia - Past Surgical History Past Surgical History: No Neuro Surgical History: No Pertinent History Cardiac: No Pertinent History Respiratory: No Pertinent History Gastrointestinal: No Pertinent History Genitourinary: No Pertinent History Musculoskeletal: No Pertinent History Female Surgical History: No Pertinent History - Social History Smoking Status: Never smoker Exposure to second hand smoke: Yes Alcohol Use: None Drug Use: none Patient Lives Alone: No Significant Family History: no pertinent family hx - Female History Hx Last Menstrual Period: Couple weeks ago Hx Now: No - Nursing Vital Signs Nursing Vital Signs: Initial Vital Signs Temperature 98 F 02/09/22 02:15 Pulse Rate 100 H 02/09/22 02:15 Respiratory Rate 18 02/09/22 02:15 Blood Pressure 161/78 02/09/22 02:15 O2 Sat by Pulse Oximetry 98 02/09/22 02:15 Pain Scale Pain Intensity 4 - Physical Exam General Appearance: no apparent distress, alert, anxiety Eye Exam: PERRL/EOMI, eyes nml inspection Ears, Nose, Throat Exam: normal ENT inspection, moist mucous membranes Neck Exam: normal inspection, non-tender, supple, full range of motion Respiratory Exam: normal breath sounds, chest tenderness, lungs clear, airway intact, No respiratory distress Cardiovascular Exam: tachycardia Gastrointestinal/Abdomen Exam: soft, normal bowel sounds, No tenderness Pelvic Exam: not done Rectal Exam: not done Back Exam: normal inspection, normal range of motion, No CVA tenderness, No vertebral tenderness Extremity Exam: normal inspection, normal range of motion, pelvis stable Neurologic Exam: alert, oriented x 3, cooperative, display designer II-XII nml as tested, normal mood/affect, nml cerebellar function, nml station & gait, sensation nml Skin Exam: normal color, warm, dry Lymphatic Exam: No adenopathy SpO2 Interpretation: normal SpO2: 98 O2 Delivery: Room Air - Course Nursing assessment & vital signs reviewed: Yes EKG Interpreted by Me: RATE ([id number]), Sinus Tach, NORMAL AXIS, NORMAL INTERVALS, NORMAL QRS, NORMAL ST-T, Non-specific ST Changes, Other (Cute ischemic changes on today's EKG. When compared to the EKG dated 02/02/2022, there is new mild sinus tachycardia) Ordered Tests: Active Orders 24 hr Category Date Time Status Superintendent Plant Protection STAT Care 02/09/22 02:30 Active EKG-ER Only STAT Care 02/09/22 02:29 Active IV Insertion STAT Care 02/09/22 02:29 Active Pulse Oximetry (ED) STAT Care 02/09/22 02:29 Active CHEST 1 VIEW (PORTABLE) Stat Exams 02/09/22 02:30 Taken CBC W DIFF Stat Lab 02/09/22 02:38 Completed CMP Stat Lab 02/09/22 02:38 Completed D-DIMER QUANTITATIVE Stat Lab 02/09/22 02:38 Completed TROPONIN Q3H Lab 02/09/22 02:38 Completed TROPONIN Q3H Lab 02/09/22 05:30 Ordered TROPONIN Q3H Lab 02/09/22 08:30 Ordered TROPONIN Q3H Lab 02/09/22 11:30 Ordered TROPONIN Q3H Lab 02/09/22 14:30 Ordered Medication Summary Discontinued Medications Generic Name Dose Route Start Last Admin Trade Name Freq PRN Reason Stop Dose Admin Aspirin 324 mg 02/09/22 02:29 02/09/22 02:55 Aspirin 81 Mg Tab.Chew PO 02/09/22 02:30 324 mg STAT ONE Administration Ondansetron HCl 4 mg 02/09/22 04:39 02/09/22 04:40 Ondansetron Hcl 4 Mg/2 Ml Vial IV 02/09/22 04:40 4 mg STAT ONE Administration Ondansetron HCl Confirm 02/09/22 04:40 Ondansetron Hcl 4 Mg/2 Ml Vial Administered 02/09/22 04:41 Dose 4 mg .ROUTE .STK-MED ONE Lab/Rad Data: Laboratory Result Diagrams 02/09/22 02:38 02/09/22 02:38 Laboratory Results 02/09/22 02/09/22 02/09/22 Range/Units 02:38 02:38 02:38 WBC (4.0-10.5) K/mm3 RBC (4.1-5.4) M/mm3 Hgb (12.0-16.0) gm/dl Hct (35-47) % MCV (78-100) fl MCH (26-32) pg MCHC (32-36) g/dl RDW (11.5-14.0) % Plt Count (150-450) K/mm3 MPV (7.5-11.0) fl Gran % (36.0-66.0) % Eos # (Auto) (0-0.5) Absolute Lymphs (auto) (1.0-4.6) Absolute Monos (auto) (0.0-1.3) Lymphocytes % (24.0-44.0) % Monocytes % (0.0-12.0) % Eosinophils % (0.00-5.0) % Basophils % (0.0-0.4) % Absolute Granulocytes (1.4-6.9) Basophils # (0-0.4) D-Dimer 279 (215-500) ng/mL Sodium 140 (137-145) mmol/L Potassium 3.8 (3.5-5.1) mmol/L Chloride 102 (98-107) mmol/L Carbon Dioxide 23 (22-30) mmol/L Anion Gap 17.9 H (5-15) MEQ/L BUN 17 (7-17) mg/dL Creatinine 0.55 (0.52-1.04) mg/dL Estimated GFR > 60.0 ML/MIN Glucose 89 (74-106) mg/dL Calcium 10.0 (8.4-10.2) mg/dL Total Bilirubin 0.40 (0.2-1.3) mg/dL AST 23 (14-36) U/L ALT 28 (0-35) U/L Alkaline Phosphatase 86 (38-126) U/L Troponin I < 0.012 (0.000-0.034) ng/mL Serum Total Protein 7.5 (6.3-8.2) g/dL Albumin 4.7 (3.5-5.0) g/dL 02/09/22 Range/Units 02:38 WBC 10.3 (4.0-10.5) K/mm3 RBC 4.65 (4.1-5.4) M/mm3 Hgb 13.7 (12.0-16.0) gm/dl Hct 41.3 (35-47) % MCV 88.8 (78-100) fl MCH 29.5 (26-32) pg MCHC 33.2 (32-36) g/dl RDW 13.3 (11.5-14.0) % Plt Count 441 (150-450) K/mm3 MPV 8.8 (7.5-11.0) fl Gran % 50.8 (36.0-66.0) % Eos # (Auto) 0.30 (0-0.5) Absolute Lymphs (auto) 3.59 (1.0-4.6) Absolute Monos (auto) 1.16 (0.0-1.3) Lymphocytes % 34.8 (24.0-44.0) % Monocytes % 11.2 (0.0-12.0) % Eosinophils % 2.9 (0.00-5.0) % Basophils % 0.3 (0.0-0.4) % Absolute Granulocytes 5.24 (1.4-6.9) Basophils # 0.03 (0-0.4) D-Dimer (215-500) ng/mL Sodium (137-145) mmol/L Potassium (3.5-5.1) mmol/L Chloride (98-107) mmol/L Carbon Dioxide (22-30) mmol/L Anion Gap (5-15) MEQ/L BUN (7-17) mg/dL Creatinine (0.52-1.04) mg/dL Estimated GFR ML/MIN Glucose (74-106) mg/dL Calcium (8.4-10.2) mg/dL Total Bilirubin (0.2-1.3) mg/dL AST (14-36) U/L ALT (0-35) U/L Alkaline Phosphatase (38-126) U/L Troponin I (0.000-0.034) ng/mL Serum Total Protein (6.3-8.2) g/dL Albumin (3.5-5.0) g/dL - Progress Progress: improved, re-examined Air Movement: good Progress Note: 02/09/22 03:12 Chest x-ray shows no acute cardiopulmonary process. 02/09/22 05:27 Medical decision making: This patient no longer has sinus tachycardia. She has no chest pain. She is feeling well. She wants to go home. She has a follow-up appointment with her harp action assembler next week and echocardiogram scheduled for 02/11/2022. Blood Culture(s) Obtained: No Antibiotics given: No Counseled pt/family regarding: lab results, diagnosis, need for follow-up, rad results - Departure Departure Disposition: Home Clinical Impression: Non-cardiac chest pain, Sinus tachycardia Condition: Stable Critical Care Time: No Referrals: JULISA SMITH NP [Primary Care Provider] - Follow up/PCP as directed Additional Instructions: Follow-up with your primary care physician and harp action assembler for further evaluation and management. Keep your appointment on 02/11/2022 for your echocardiogram. Take all your medications as prescribed
[2022-02-09 02:42] LABS: Absolute Neutrophil Ct (ANC) 5.24 (1.4-6.9); Basophil (Absolute #) 0.03 (0-0.4); Eosinophil % 2.9 % (0.00-5.0); Hematocrit 41.3 % (35-47); Hemoglobin 13.7 gm/dl (12.0-16.0); Lymphocyte (Absolute #) 3.59 (1.0-4.6); Lymphocytes % 34.8 % (24.0-44.0); Mean Cell Volume 88.8 fl (78-100); Mean Corpuscular Hemoglobin 29.5 pg (26-32); Mean Corpuscular Hgb Concent. 33.2 g/dl (32-36); Mean Platelet Volume 8.8 fl (7.5-11.0); Monocyte (Absolute #) 1.16 (0.0-1.3); Monocytes % 11.2 % (0.0-12.0); Neutrophil % 50.8 % (36.0-66.0); Platelet Count 441 K/mm3 (150-450); Red Blood Count 4.65 M/mm3 (4.1-5.4); Red Cell Distribution Width 13.3 % (11.5-14.0); White Blood Count 10.3 K/mm3 (4.0-10.5)
[2022-02-09 03:04] LABS: ALBUMIN 4.7 g/dL (3.5-5.0); ALKALINE PHOSPHATASE 86 U/L (38-126); ANION GAP 17.9 MEQ/L (5-15); BLOOD UREA NITROGEN 17 mg/dL (7-17); CHLORIDE 102 mmol/L (98-107); Carbon Dioxide 23 mmol/L (22-30); Creatinine 1 0.55 mg/dL (0.52-1.04); EST GLOMERULAR FILTRATION RATE > 60.0 ML/MIN; Glucose 89 mg/dL (74-106); Potassium 3.8 mmol/L (3.5-5.1); SGOT/AST 23 U/L (14-36); SGPT/ALT 28 U/L (0-35); SODIUM 140 mmol/L (137-145); Total Protein 7.5 g/dL (6.3-8.2)
[2022-02-09] MEDS ORDERED: Zofran 4 MG/2 ML VIAL IV ONE (04:39)
[2022-02-09] MEDS ORDERED: Zofran 4 MG/2 ML VIAL ONE (04:40)
[2022-02-09 05:42] VITALS: BP 131/88
[2022-02-09 05:53] VITALS: PULSE 78; O2SAT 97
--- NOTE | 2022-02-09 07:40 | XRAY ---
Indication: Chest pain. Comparison: February 02, 2022. Portable chest again demonstrates normal heart, lungs, and bony thorax.
== END 2022-02-09 05:52 | disposition home or self-care (01) ==
LOC: ED 02:07
DX: R00.0 Tachycardia, unspecified (principal); R07.89 Other chest pain; F41.9 Anxiety disorder, unspecified; Z79.899 Other long term (current) drug therapy
CPT/HCPCS: 36000; 36415; 71045; 80053; 84484; 85025; 85379; 93005; 93041; 94760; 96374; 99284; J2405; A9270-GY

== ENCOUNTER 2022-02-14 06:44 | Emergency (ER) | payer OTHER ==
--- NOTE | 2022-02-14 07:25 | ERPHSYRPT ---
- History of Present Illness Time Seen by Provider: 02/14/22 07:10 Historian: patient, family Exam Limitations: no limitations Patient Subjective Stated Complaint: C/O "chest heaviness" that started around 4:30am. States she was asleep and the pain/heaviness woke her up. States she was very dizzy with the episode. No SOB or n/v. Triage Nursing Assessment: Patient ambulated back to ED without difficulties. She is alert and oriented and answering questions appropriately. No SOB noted. Patient is calm. No edema noted. Physician History: This is a 26-year-old obese white female patient who I am familiar with and recently patient was evaluated in this emergency department for the same complaint of chest pain and palpitations. Patient states that she was asleep and at 430 this morning heaviness in her right chest which radiated to her right neck occurred. She had associated dizziness. She did not have any shortness of breath. She has had no cough and no fever. Patient's functional tester is Dr. Cook and she has been undergoing cardiac work-up with him in his office for the last several weeks. They are aware of her intermittent symptoms. Currently, her symptoms have subsided. Patient does have a history of anxiety, panic disorder and bipolar disorder. Timing/Duration: today Activities at Onset: sleep Quality: other Location: other (Venous right chest) Chest Pain Radiation: neck (Right) Severity of Pain-Max: moderate Severity of Pain-Current: none Modifying Factors: Improves With: nothing Associated Symptoms: palpitations, dizziness, other (Dizziness), No nausea, No vomiting, No shortness of breath Prior Chest Pain/Cardiac Workup: echocardiography, recently seen/treated Nitro Today/Relief: no nitro taken today Aspirin Treatment Today: no aspirin today Allergies/Adverse Reactions: sulfamethoxazole [From Bactrim DS] Allergy (Severe, Verified 02/14/22 06:45) RAPID HEART RATE trimethoprim [From Bactrim DS] Allergy (Severe, Verified 02/14/22 06:45) RAPID HEART RATE diphenhydramine HCl [From Benadryl] Allergy (Intermediate, Verified 02/14/22 06:45) "OVER-REACTS AND ACTS DRUNK" Home Medications: dilTIAZem HCL [Diltiazem HCl] 1 cap PO BID 02/09/22 [History] Hx Tetanus, Diphtheria Vaccination/Date Given: Yes Hx Influenza Vaccination/Date Given: No Hx Pneumococcal Vaccination/Date Given: No Immunizations Up to Date: Yes Travel Risk - International Travel Have you traveled outside of the country in past 3 weeks: No - Coronavirus Screening Are you exhibiting any of the following symptoms?: No Close contact with a COVID-19 positive Pt in past 14-21 Days: No - Vaccine Status Have you recieved a Covid-19 vaccination: No - Review of Systems Constitutional: No Symptoms Eyes: No Symptoms Ears, Nose, & Throat: No Symptoms Respiratory: No Symptoms Cardiac: Chest Pain, Palpitations Abdominal/Gastrointestinal: No Symptoms Genitourinary Symptoms: No Symptoms Musculoskeletal: No Symptoms Skin: No Symptoms Neurological: No Symptoms Psychological: No Symptoms Endocrine: No Symptoms Hematologic/Lymphatic: No Symptoms Immunological/Allergic: No Symptoms All Other Systems: Reviewed and Negative - Past Medical History Pertinent Past Medical History: Yes Neurological History: No Pertinent History ENT History: No Pertinent History Cardiac History: Other Respiratory History: No Pertinent History Endocrine Medical History: No Pertinent History Musculoskeletal History: No Pertinent History GI Medical History: No Pertinent History History: No Pertinent History Psycho-Social History: Anxiety, Bipolar, Panic Disorder Female Reproductive Disorders: Other Other Medical History: PCOS, tachycardia - Past Surgical History Past Surgical History: No Neuro Surgical History: No Pertinent History Cardiac: No Pertinent History Respiratory: No Pertinent History Gastrointestinal: No Pertinent History Genitourinary: No Pertinent History Musculoskeletal: No Pertinent History Female Surgical History: No Pertinent History - Social History Smoking Status: Never smoker Exposure to second hand smoke: Yes Alcohol Use: None Drug Use: none Patient Lives Alone: No Significant Family History: no pertinent family hx - Female History Hx Last Menstrual Period: Last month sometime Hx Now: No ("Not that I know of") - Nursing Vital Signs Nursing Vital Signs: Initial Vital Signs Temperature 97.8 F 02/14/22 06:46 Pulse Rate 92 H 02/14/22 06:46 Respiratory Rate 15 02/14/22 06:46 Blood Pressure 162/79 02/14/22 06:46 O2 Sat by Pulse Oximetry 100 02/14/22 06:46 Pain Scale Pain Intensity 0 - Physical Exam General Appearance: no apparent distress, alert, anxiety, obese Eye Exam: PERRL/EOMI, eyes nml inspection Ears, Nose, Throat Exam: normal ENT inspection, moist mucous membranes Neck Exam: normal inspection, non-tender, supple, full range of motion Respiratory Exam: normal breath sounds, chest tenderness, lungs clear, airway intact, No respiratory distress Cardiovascular Exam: regular rate/rhythm, normal heart sounds, normal peripheral pulses Gastrointestinal/Abdomen Exam: soft, normal bowel sounds, No tenderness Pelvic Exam: not done Rectal Exam: not done Back Exam: normal inspection, normal range of motion, No CVA tenderness, No vertebral tenderness Extremity Exam: normal inspection, normal range of motion, pelvis stable Neurologic Exam: alert, oriented x 3, cooperative, 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 Improved EKG over comparison EKG dated 02/09/2022.) Ordered Tests: Active Orders 24 hr Category Date Time Status EKG-ER Only STAT Care 02/14/22 07:31 Active IV Insertion STAT Care 02/14/22 07:31 Active CHEST 1 VIEW (PORTABLE) Stat Exams 02/14/22 07:31 Completed CBC W DIFF Stat Lab 02/14/22 07:31 Completed CMP Stat Lab 02/14/22 07:30 Completed D-DIMER QUANTITATIVE Stat Lab 02/14/22 07:30 Completed TROPONIN Q3H Lab 02/14/22 07:30 Completed TROPONIN Q3H Lab 02/14/22 10:45 Ordered TROPONIN Q3H Lab 02/14/22 13:45 Ordered TROPONIN Q3H Lab 02/14/22 16:45 Ordered TROPONIN Q3H Lab 02/14/22 19:45 Ordered Medication Summary Discontinued Medications Generic Name Dose Route Start Last Admin Trade Name Freq PRN Reason Stop Dose Admin Aspirin 324 mg 02/14/22 07:31 02/14/22 07:48 Aspirin 81 Mg Tab.Chew PO 02/14/22 07:32 324 mg STAT ONE Administration Lab/Rad Data: Laboratory Result Diagrams 02/14/22 07:31 02/14/22 07:30 Laboratory Results 02/14/22 02/14/22 02/14/22 Range/Units 07:31 07:30 07:30 WBC 10.6 H (4.0-10.5) x10^3/uL RBC 4.85 (4.1-5.4) x10^6/uL Hgb 13.9 (12.0-16.0) g/dL Hct 43.2 (35-47) % MCV 89.1 (78-100) fL MCH 28.7 (26-32) pg MCHC 32.2 (32-36) g/dL RDW 12.6 (11.5-14.0) % Plt Count 410 (150-450) x10^3/uL MPV 9.0 (7.5-11.0) fL Gran % 51.4 (36.0-66.0) % Immature Gran % (Auto) 0.2 (0.00-0.4) % Nucleat RBC Rel Count 0.0 (0.00-0.1) % Eos # (Auto) 0.33 (0-0.5) x10^3/uL Immature Gran # (Auto) 0.02 (0.00-0.03) x10^3u/L Absolute Lymphs (auto) 3.93 (1.0-4.6) x10^3/uL Absolute Monos (auto) 0.80 (0.0-1.3) x10^3/uL Absolute Nucleated RBC 0.00 (0.00-0.01) x10^3u/L Lymphocytes % 37.2 (24.0-44.0) % Monocytes % 7.6 (0.0-12.0) % Eosinophils % 3.1 (0.00-5.0) % Basophils % 0.5 (0.0-0.4) % Absolute Granulocytes 5.43 (1.4-6.9) x10^3/uL Basophils # 0.05 (0-0.4) x10^3/uL D-Dimer < 0.19 (0.0-0.50) ng/mL Sodium (137-145) mmol/L Potassium (3.5-5.1) mmol/L Chloride (98-107) mmol/L Carbon Dioxide (22-30) mmol/L Anion Gap (5-15) MEQ/L BUN (7-17) mg/dL Creatinine (0.52-1.04) mg/dL Estimated GFR ML/MIN Glucose (74-106) mg/dL Calcium (8.4-10.2) mg/dL Total Bilirubin (0.2-1.3) mg/dL AST (14-36) U/L ALT (0-35) U/L Alkaline Phosphatase (38-126) U/L Troponin I < 0.012 (0.000-0.034) ng/mL Serum Total Protein (6.3-8.2) g/dL Albumin (3.5-5.0) g/dL 02/14/22 Range/Units 07:30 WBC (4.0-10.5) x10^3/uL RBC (4.1-5.4) x10^6/uL Hgb (12.0-16.0) g/dL Hct (35-47) % MCV (78-100) fL MCH (26-32) pg MCHC (32-36) g/dL RDW (11.5-14.0) % Plt Count (150-450) x10^3/uL MPV (7.5-11.0) fL Gran % (36.0-66.0) % Immature Gran % (Auto) (0.00-0.4) % Nucleat RBC Rel Count (0.00-0.1) % Eos # (Auto) (0-0.5) x10^3/uL Immature Gran # (Auto) (0.00-0.03) x10^3u/L Absolute Lymphs (auto) (1.0-4.6) x10^3/uL Absolute Monos (auto) (0.0-1.3) x10^3/uL Absolute Nucleated RBC (0.00-0.01) x10^3u/L Lymphocytes % (24.0-44.0) % Monocytes % (0.0-12.0) % Eosinophils % (0.00-5.0) % Basophils % (0.0-0.4) % Absolute Granulocytes (1.4-6.9) x10^3/uL Basophils # (0-0.4) x10^3/uL D-Dimer (0.0-0.50) ng/mL Sodium 140 (137-145) mmol/L Potassium 3.7 (3.5-5.1) mmol/L Chloride 104 (98-107) mmol/L Carbon Dioxide 20 L (22-30) mmol/L Anion Gap 19.5 H (5-15) MEQ/L BUN 19 H (7-17) mg/dL Creatinine 0.57 (0.52-1.04) mg/dL Estimated GFR > 60.0 ML/MIN Glucose 86 (74-106) mg/dL Calcium 9.9 (8.4-10.2) mg/dL Total Bilirubin 0.60 (0.2-1.3) mg/dL AST 27 (14-36) U/L ALT 37 H (0-35) U/L Alkaline Phosphatase 97 (38-126) U/L Troponin I (0.000-0.034) ng/mL Serum Total Protein 7.9 (6.3-8.2) g/dL Albumin 4.9 (3.5-5.0) g/dL - Progress Progress: improved, re-examined Air Movement: good Progress Note: 02/14/22 09:04 Chest x-ray shows no acute cardiopulmonary process. Blood Culture(s) Obtained: No Antibiotics given: No Counseled pt/family regarding: lab results, diagnosis, need for follow-up - Departure Departure Disposition: Home Clinical Impression: Non-cardiac chest pain Condition: Stable Critical Care Time: No Referrals: JULISA SMITH NP [Primary Care Provider] - Follow up/PCP as directed Additional Instructions: Follow-up with your functional tester today by phone to make arrangements for an appointment for further evaluation and management.
[2022-02-14] MEDS ORDERED: BABY ASPIRIN 81 MG CHEW PO ONE (07:31)
[2022-02-14 07:43] LABS: Absolute Neutrophil Ct (ANC) 5.43 x10^3/uL (1.4-6.9); Basophil (Absolute #) 0.05 x10^3/uL (0-0.4); Eosinophil % 3.1 % (0.00-5.0); Eosinophil (Absolute #) 0.33 x10^3/uL (0-0.5); Hematocrit 43.2 % (35-47); Hemoglobin 13.9 g/dL (12.0-16.0); Lymphocyte (Absolute #) 3.93 x10^3/uL (1.0-4.6); Lymphocytes % 37.2 % (24.0-44.0); Mean Cell Volume 89.1 fL (78-100); Mean Corpuscular Hemoglobin 28.7 pg (26-32); Mean Corpuscular Hgb Concent. 32.2 g/dL (32-36); Monocytes % 7.6 % (0.0-12.0); Neutrophil % 51.4 % (36.0-66.0); Platelet Count 410 x10^3/uL (150-450); Red Blood Count 4.85 x10^6/uL (4.1-5.4); Red Cell Distribution Width 12.6 % (11.5-14.0); White Blood Count 10.6 x10^3/uL (4.0-10.5)
[2022-02-14 08:00] LABS: ALBUMIN 4.9 g/dL (3.5-5.0); ALKALINE PHOSPHATASE 97 U/L (38-126); ANION GAP 19.5 MEQ/L (5-15); BLOOD UREA NITROGEN 19 mg/dL (7-17); CHLORIDE 104 mmol/L (98-107); Calcium 9.9 mg/dL (8.4-10.2); Carbon Dioxide 20 mmol/L (22-30); Creatinine 1 0.57 mg/dL (0.52-1.04); EST GLOMERULAR FILTRATION RATE > 60.0 ML/MIN; Glucose 86 mg/dL (74-106); Potassium 3.7 mmol/L (3.5-5.1); SGOT/AST 27 U/L (14-36); SGPT/ALT 37 U/L (0-35); SODIUM 140 mmol/L (137-145); Total Protein 7.9 g/dL (6.3-8.2)
--- NOTE | 2022-02-14 09:02 | XRAY ---
Indication: Chest pain. Comparison: February 09, 2022. Portable chest continues to demonstrate normal heart, lungs, and bony thorax. New electronic device overlies left lung.
[2022-02-14 09:15] VITALS: BP 119/75; PULSE 69; O2SAT 99
== END 2022-02-14 09:28 | disposition home or self-care (01) ==
LOC: ED 06:44
DX: R07.89 Other chest pain (principal); R42 Dizziness and giddiness; F41.9 Anxiety disorder, unspecified
CPT/HCPCS: 36000; 36415; 71045; 80053; 84484; 85025; 85379; 93005; 99284; A9270-GY

== ENCOUNTER 2022-02-20 16:15 | Emergency (ER) | payer OTHER ==
[2022-02-20] MEDS ORDERED: Sodium Chloride 0.9% 1000 ML 1,000 ML ONE (16:30)
[2022-02-20] MEDS: Sodium Chloride 0.9% 1000 ML 1,000 ML IV STA (16:31)
[2022-02-20 16:38] LABS: Absolute Neutrophil Ct (ANC) 5.12 x10^3/uL (1.4-6.9); Basophil (Absolute #) 0.06 x10^3/uL (0-0.4); Eosinophil % 2.5 % (0.00-5.0); Eosinophil (Absolute #) 0.24 x10^3/uL (0-0.5); Hematocrit 39.9 % (35-47); Hemoglobin 13.3 g/dL (12.0-16.0); Lymphocyte (Absolute #) 3.08 x10^3/uL (1.0-4.6); Lymphocytes % 32.6 % (24.0-44.0); Mean Cell Volume 87.5 fL (78-100); Mean Corpuscular Hemoglobin 29.2 pg (26-32); Mean Corpuscular Hgb Concent. 33.3 g/dL (32-36); Mean Platelet Volume 8.7 fL (7.5-11.0); Monocyte (Absolute #) 0.93 x10^3/uL (0.0-1.3); Monocytes % 9.8 % (0.0-12.0); Neutrophil % 54.3 % (36.0-66.0); Platelet Count 440 x10^3/uL (150-450); Red Blood Count 4.56 x10^6/uL (4.1-5.4); Red Cell Distribution Width 12.8 % (11.5-14.0); White Blood Count 9.5 x10^3/uL (4.0-10.5)
--- NOTE | 2022-02-20 16:40 | ERPHSYRPT ---
- History of Present Illness Time Seen by Provider: 02/20/22 16:20 Historian: patient Exam Limitations: no limitations Patient Subjective Stated Complaint: PT states "I have been having problems with my heart. They think it is tachycardia. I see Dr. Cook and I am on a heart monitor now." Triage Nursing Assessment: PT presented alert and oriented X 3, skin pwd. Pt ambulates with an upright steady gait, able to speak in clear full setences pt in no apaprent respiratory distress. Physician History: Patient is a 26-year-old white female who presents with a complaint of chest pain which is a sharp stabbing pain substernally that goes to the left axilla. She also says the chest feels tight she is also had palpitations. She is currently under the care of Dr. Augustine Who has her wearing a monitor now for suspected SVT. He rate on arrival was 116 she had an echo 1 week ago which was reportedly normal.Her pain had resolved by the time she arrived in the ER. Timing/Duration: intermittent Activities at Onset: none Quality: fullness, tightness Location: substernal Chest Pain Radiation: arm Severity of Pain-Max: mild Severity of Pain-Current: mild Modifying Factors: Improves With: nothing Associated Symptoms: palpitations Prior Chest Pain/Cardiac Workup: no prior chest pain Nitro Today/Relief: no nitro taken today Aspirin Treatment Today: no aspirin today Allergies/Adverse Reactions: sulfamethoxazole [From Bactrim DS] Allergy (Severe, Verified 02/14/22 06:45) RAPID HEART RATE trimethoprim [From Bactrim DS] Allergy (Severe, Verified 02/14/22 06:45) RAPID HEART RATE diphenhydramine HCl [From Benadryl] Allergy (Intermediate, Verified 02/14/22 06:45) "OVER-REACTS AND ACTS DRUNK" Home Medications: dilTIAZem HCL [Diltiazem HCl] 1 cap PO BID 02/09/22 [History] Buspirone HCl 5 mg [Buspar 5 mg] 5 mg PO DAILY 02/20/22 [History] Hx Tetanus, Diphtheria Vaccination/Date Given: Yes Hx Influenza Vaccination/Date Given: No Hx Pneumococcal Vaccination/Date Given: No Immunizations Up to Date: Yes Travel Risk - International Travel Have you traveled outside of the country in past 3 weeks: No - Coronavirus Screening Are you exhibiting any of the following symptoms?: No Close contact with a COVID-19 positive Pt in past 14-21 Days: No - Vaccine Status Have you recieved a Covid-19 vaccination: No - Review of Systems Constitutional: No Fever, No Chills Eyes: No Symptoms Ears, Nose, & Throat: No Symptoms Respiratory: No Cough, No Dyspnea Cardiac: Chest Pain, Palpitations, No Edema, No Syncope Abdominal/Gastrointestinal: No Abdominal Pain, No Nausea, No Vomiting, No Diarrhea Genitourinary Symptoms: No Dysuria Musculoskeletal: No Back Pain, No Neck Pain Skin: No Rash Neurological: No Dizziness, No Focal Weakness, No Sensory Changes Psychological: No Symptoms Endocrine: No Symptoms All Other Systems: Reviewed and Negative - Past Medical History Pertinent Past Medical History: Yes Neurological History: No Pertinent History ENT History: No Pertinent History Cardiac History: Other Respiratory History: No Pertinent History Endocrine Medical History: No Pertinent History Musculoskeletal History: No Pertinent History GI Medical History: No Pertinent History History: No Pertinent History Psycho-Social History: Anxiety, Bipolar, Panic Disorder Female Reproductive Disorders: Other Other Medical History: PCOS, tachycardia - Past Surgical History Past Surgical History: No Neuro Surgical History: No Pertinent History Cardiac: No Pertinent History Respiratory: No Pertinent History Gastrointestinal: No Pertinent History Genitourinary: No Pertinent History Musculoskeletal: No Pertinent History Female Surgical History: No Pertinent History - Social History Smoking Status: Never smoker Exposure to second hand smoke: Yes Alcohol Use: None Drug Use: none Patient Lives Alone: No Significant Family History: no pertinent family hx - Female History Hx Last Menstrual Period: 01/16/2022 Hx Now: No (unknown) - Nursing Vital Signs Nursing Vital Signs: Initial Vital Signs Temperature 98.3 F 02/20/22 16:16 Pulse Rate 119 H 02/20/22 16:16 Respiratory Rate 20 02/20/22 16:16 Blood Pressure 151/95 02/20/22 16:16 O2 Sat by Pulse Oximetry 98 02/20/22 16:16 Pain Scale Pain Intensity 0 - Physical Exam General Appearance: mild distress, alert Eye Exam: PERRL/EOMI, eyes nml inspection Ears, Nose, Throat Exam: normal ENT inspection, moist mucous membranes Neck Exam: normal inspection, non-tender, supple, full range of motion Respiratory Exam: normal breath sounds, lungs clear, No respiratory distress Cardiovascular Exam: regular rate/rhythm, normal heart sounds, tachycardia Gastrointestinal/Abdomen Exam: soft, No tenderness, No mass Back Exam: normal inspection, No CVA tenderness, No vertebral tenderness Extremity Exam: normal inspection, normal range of motion Neurologic Exam: alert, oriented x 3, cooperative, normal mood/affect, sensation nml, No motor deficits Skin Exam: normal color, warm, dry SpO2: 98 - Course EKG Interpreted by Me: RATE ([id number]), Sinus Tach, NORMAL AXIS, NORMAL INTERVALS, NORMAL QRS, Non-specific ST Changes - Radiology Exams Chest X-ray Interpretation: Interpreted by me, Negative Ordered Tests: Active Orders 24 hr Category Date Time Status EKG-ER Only STAT Care 02/20/22 16:22 Active IV Insertion STAT Care 02/20/22 16:22 Active CHEST 1 VIEW (PORTABLE) Stat Exams 02/20/22 17:23 Taken AMYLASE Stat Lab 02/20/22 16:30 Completed CBC W DIFF Stat Lab 02/20/22 16:30 Completed CMP Stat Lab 02/20/22 16:30 Completed D-DIMER QUANTITATIVE Stat Lab 02/20/22 16:30 Completed HCG,QUALITATIVE URINE Stat Lab 02/20/22 16:53 Completed LIPASE Stat Lab 02/20/22 16:30 Completed Lactic Acid Stat Lab 02/20/22 16:40 Completed NT PRO BNP Stat Lab 02/20/22 16:30 Completed PROTIME WITH INR Stat Lab 02/20/22 16:30 Completed PTT Stat Lab 02/20/22 16:30 Completed TROPONIN Q3H Lab 02/20/22 16:30 Completed TROPONIN Q3H Lab 02/20/22 19:30 Ordered TROPONIN Q3H Lab 02/20/22 22:30 Ordered TROPONIN Q3H Lab 02/21/22 01:30 Ordered TROPONIN Q3H Lab 02/21/22 04:30 Ordered UA W/RFX CULTURE Stat Lab 02/20/22 16:30 Completed Medication Summary Discontinued Medications Generic Name Dose Route Start Last Admin Trade Name Freq PRN Reason Stop Dose Admin Sodium Chloride 1,000 mls @ 999 mls/hr 02/20/22 16:22 02/20/22 17:36 Sodium Chloride 0.9% 1000 Ml IV 02/20/22 17:22 Infused .Q1H1M STA Infusion Sodium Chloride Confirm 02/20/22 16:30 Sodium Chloride 0.9% 1000 Ml Administered 02/20/22 16:31 Dose 1,000 mls @ ud .ROUTE .STK-MED ONE Lab/Rad Data: Laboratory Result Diagrams 02/20/22 16:30 02/20/22 16:30 Laboratory Results 02/20/22 02/20/22 02/20/22 Range/Units 16:53 16:40 16:30 WBC (4.0-10.5) x10^3/uL RBC (4.1-5.4) x10^6/uL Hgb (12.0-16.0) g/dL Hct (35-47) % MCV (78-100) fL MCH (26-32) pg MCHC (32-36) g/dL RDW (11.5-14.0) % Plt Count (150-450) x10^3/uL MPV (7.5-11.0) fL Gran % (36.0-66.0) % Immature Gran % (Auto) (0.00-0.4) % Nucleat RBC Rel Count (0.00-0.1) % Eos # (Auto) (0-0.5) x10^3/uL Immature Gran # (Auto) (0.00-0.03) x10^3u/L Absolute Lymphs (auto) (1.0-4.6) x10^3/uL Absolute Monos (auto) (0.0-1.3) x10^3/uL Absolute Nucleated RBC (0.00-0.01) x10^3u/L Lymphocytes % (24.0-44.0) % Monocytes % (0.0-12.0) % Eosinophils % (0.00-5.0) % Basophils % (0.0-0.4) % Absolute Granulocytes (1.4-6.9) x10^3/uL Basophils # (0-0.4) x10^3/uL PT (9.4-12.5) SECONDS INR (0.8-3.0) APTT (25.1-36.5) SECONDS D-Dimer (0.0-0.50) ng/mL Sodium (137-145) mmol/L Potassium (3.5-5.1) mmol/L Chloride (98-107) mmol/L Carbon Dioxide (22-30) mmol/L Anion Gap (5-15) MEQ/L BUN (7-17) mg/dL Creatinine (0.52-1.04) mg/dL Estimated GFR ML/MIN Glucose (74-106) mg/dL Lactic Acid 2.0 (0.4-2.0) Calcium (8.4-10.2) mg/dL Total Bilirubin (0.2-1.3) mg/dL AST (14-36) U/L ALT (0-35) U/L Alkaline Phosphatase (38-126) U/L Troponin I (0.000-0.034) ng/mL NT-Pro-B Natriuret Pep (0-450) pg/mL Serum Total Protein (6.3-8.2) g/dL Albumin (3.5-5.0) g/dL Amylase (30-110) U/L Lipase (23-300) U/L Urinalys Dipstick Clnc MAIN LAB Urine Color YELLOW (YELLOW) Urine Appearance CLEAR (CLEAR) Urine pH 6.0 (5-6) Ur Specific [place] 1.025 (1.005-1.025) POC Urine Protein Conf NEGATIVE (Negative) Urine Ketones NEGATIVE (NEGATIVE) Urine Nitrite NEGATIVE (NEGATIVE) Urine Bilirubin NEGATIVE (NEGATIVE) Urine Urobilinogen 0.2 (0-1) mg/dL Urine Leukocytes NEGATIVE (NEGATIVE) Urine WBC (Auto) 3-5 (0-5) /HPF Urine RBC (Auto) 0-2 (0-2) /HPF U Epithel Cells (Auto) RARE (FEW) /HPF Urine Bacteria (Auto) RARE (NEGATIVE) /HPF Urine RBC NEGATIVE (0-5) Demar/ul Urine Mucus (Auto) SLIGHT (NEGATIVE) /HPF Ur Culture Indicated? NO Urine Glucose NEGATIVE (NEGATIVE) mg/dL Urine HCG, Qual NEGATIVE (Negative) 02/20/22 02/20/22 02/20/22 Range/Units 16:30 16:30 16:30 WBC (4.0-10.5) x10^3/uL RBC (4.1-5.4) x10^6/uL Hgb (12.0-16.0) g/dL Hct (35-47) % MCV (78-100) fL MCH (26-32) pg MCHC (32-36) g/dL RDW (11.5-14.0) % Plt Count (150-450) x10^3/uL MPV (7.5-11.0) fL Gran % (36.0-66.0) % Immature Gran % (Auto) (0.00-0.4) % Nucleat RBC Rel Count (0.00-0.1) % Eos # (Auto) (0-0.5) x10^3/uL Immature Gran # (Auto) (0.00-0.03) x10^3u/L Absolute Lymphs (auto) (1.0-4.6) x10^3/uL Absolute Monos (auto) (0.0-1.3) x10^3/uL Absolute Nucleated RBC (0.00-0.01) x10^3u/L Lymphocytes % (24.0-44.0) % Monocytes % (0.0-12.0) % Eosinophils % (0.00-5.0) % Basophils % (0.0-0.4) % Absolute Granulocytes (1.4-6.9) x10^3/uL Basophils # (0-0.4) x10^3/uL PT 10.2 (9.4-12.5) SECONDS INR 0.96 (0.8-3.0) APTT 29.3 (25.1-36.5) SECONDS D-Dimer 0.19 (0.0-0.50) ng/mL Sodium 141 (137-145) mmol/L Potassium 3.8 (3.5-5.1) mmol/L Chloride 106 (98-107) mmol/L Carbon Dioxide 25 (22-30) mmol/L Anion Gap 14.6 (5-15) MEQ/L BUN 14 (7-17) mg/dL Creatinine 0.60 (0.52-1.04) mg/dL Estimated GFR > 60.0 ML/MIN Glucose 91 (74-106) mg/dL Lactic Acid (0.4-2.0) Calcium 9.8 (8.4-10.2) mg/dL Total Bilirubin 0.40 (0.2-1.3) mg/dL AST 22 (14-36) U/L ALT 28 (0-35) U/L Alkaline Phosphatase 90 (38-126) U/L Troponin I < 0.012 (0.000-0.034) ng/mL NT-Pro-B Natriuret Pep 20.9 (0-450) pg/mL Serum Total Protein 7.5 (6.3-8.2) g/dL Albumin 4.6 (3.5-5.0) g/dL Amylase 80 (30-110) U/L Lipase 111 (23-300) U/L Urinalys Dipstick Clnc Urine Color (YELLOW) Urine Appearance (CLEAR) Urine pH (5-6) Ur Specific [place] (1.005-1.025) POC Urine Protein Conf (Negative) Urine Ketones (NEGATIVE) Urine Nitrite (NEGATIVE) Urine Bilirubin (NEGATIVE) Urine Urobilinogen (0-1) mg/dL Urine Leukocytes (NEGATIVE) Urine WBC (Auto) (0-5) /HPF Urine RBC (Auto) (0-2) /HPF U Epithel Cells (Auto) (FEW) /HPF Urine Bacteria (Auto) (NEGATIVE) /HPF Urine RBC (0-5) Demar/ul Urine Mucus (Auto) (NEGATIVE) /HPF Ur Culture Indicated? Urine Glucose (NEGATIVE) mg/dL Urine HCG, Qual (Negative) 02/20/22 Range/Units 16:30 WBC 9.5 (4.0-10.5) x10^3/uL RBC 4.56 (4.1-5.4) x10^6/uL Hgb 13.3 (12.0-16.0) g/dL Hct 39.9 (35-47) % MCV 87.5 (78-100) fL MCH 29.2 (26-32) pg MCHC 33.3 (32-36) g/dL RDW 12.8 (11.5-14.0) % Plt Count 440 (150-450) x10^3/uL MPV 8.7 (7.5-11.0) fL Gran % 54.3 (36.0-66.0) % Immature Gran % (Auto) 0.2 (0.00-0.4) % Nucleat RBC Rel Count 0.0 (0.00-0.1) % Eos # (Auto) 0.24 (0-0.5) x10^3/uL Immature Gran # (Auto) 0.02 (0.00-0.03) x10^3u/L Absolute Lymphs (auto) 3.08 (1.0-4.6) x10^3/uL Absolute Monos (auto) 0.93 (0.0-1.3) x10^3/uL Absolute Nucleated RBC 0.00 (0.00-0.01) x10^3u/L Lymphocytes % 32.6 (24.0-44.0) % Monocytes % 9.8 (0.0-12.0) % Eosinophils % 2.5 (0.00-5.0) % Basophils % 0.6 (0.0-0.4) % Absolute Granulocytes 5.12 (1.4-6.9) x10^3/uL Basophils # 0.06 (0-0.4) x10^3/uL PT (9.4-12.5) SECONDS INR (0.8-3.0) APTT (25.1-36.5) SECONDS D-Dimer (0.0-0.50) ng/mL Sodium (137-145) mmol/L Potassium (3.5-5.1) mmol/L Chloride (98-107) mmol/L Carbon Dioxide (22-30) mmol/L Anion Gap (5-15) MEQ/L BUN (7-17) mg/dL Creatinine (0.52-1.04) mg/dL Estimated GFR ML/MIN Glucose (74-106) mg/dL Lactic Acid (0.4-2.0) Calcium (8.4-10.2) mg/dL Total Bilirubin (0.2-1.3) mg/dL AST (14-36) U/L ALT (0-35) U/L Alkaline Phosphatase (38-126) U/L Troponin I (0.000-0.034) ng/mL NT-Pro-B Natriuret Pep (0-450) pg/mL Serum Total Protein (6.3-8.2) g/dL Albumin (3.5-5.0) g/dL Amylase (30-110) U/L Lipase (23-300) U/L Urinalys Dipstick Clnc Urine Color (YELLOW) Urine Appearance (CLEAR) Urine pH (5-6) Ur Specific [place] (1.005-1.025) POC Urine Protein Conf (Negative) Urine Ketones (NEGATIVE) Urine Nitrite (NEGATIVE) Urine Bilirubin (NEGATIVE) Urine Urobilinogen (0-1) mg/dL Urine Leukocytes (NEGATIVE) Urine WBC (Auto) (0-5) /HPF Urine RBC (Auto) (0-2) /HPF U Epithel Cells (Auto) (FEW) /HPF Urine Bacteria (Auto) (NEGATIVE) /HPF Urine RBC (0-5) Demar/ul Urine Mucus (Auto) (NEGATIVE) /HPF Ur Culture Indicated? Urine Glucose (NEGATIVE) mg/dL Urine HCG, Qual (Negative) - Progress Progress: improved Air Movement: good Blood Culture(s) Obtained: No Antibiotics given: No - Departure Departure Disposition: Home Clinical Impression: Sinus tachycardia Condition: Stable Critical Care Time: No Referrals: JULISA SMITH NP [Primary Care Provider] - Follow up/PCP as directed Instructions: Palpitations (DC)
[2022-02-20 16:44] LABS: Bacteria RARE /HPF (NEGATIVE); Epithelial Cells RARE /HPF (FEW); Mucus SLIGHT /HPF (NEGATIVE); RBC 0-2 /HPF (0-2)
[2022-02-20 16:50] LABS: Appearance CLEAR (CLEAR); Bilirubin NEGATIVE (NEGATIVE); Glucose NEGATIVE (NEGATIVE); Ketones NEGATIVE (NEGATIVE); Specific Gravity 1.025 (1.005-1.025)
[2022-02-20 16:51] LABS: Dipstick done @ ? MAIN LAB; Nitrite NEGATIVE (NEGATIVE); Protein,Urine Dip NEGATIVE (Negative); RBC NEGATIVE Ery/ul (0-5); Urine Cultured Indicated? NO; Urobilinogen 0.2 mg/dL (0-1)
[2022-02-20 16:56] LABS: D-DIMER QUANTITATIVE 0.19 ng/mL (0.0-0.50); INR 0.96 (0.8-3.0); PROTIME 10.2 SECONDS (9.4-12.5); PTT 29.3 SECONDS (25.1-36.5)
[2022-02-20 17:03] LABS: ALBUMIN 4.6 g/dL (3.5-5.0); ALKALINE PHOSPHATASE 90 U/L (38-126); AMYLASE 80 U/L (30-110); ANION GAP 14.6 MEQ/L (5-15); BLOOD UREA NITROGEN 14 mg/dL (7-17); CHLORIDE 106 mmol/L (98-107); Calcium 9.8 mg/dL (8.4-10.2); Carbon Dioxide 25 mmol/L (22-30); EST GLOMERULAR FILTRATION RATE > 60.0 ML/MIN; Glucose 91 mg/dL (74-106); LIPASE 111 U/L (23-300); NT PRO BNP 20.9 pg/mL (0-450); Potassium 3.8 mmol/L (3.5-5.1); SGOT/AST 22 U/L (14-36); SGPT/ALT 28 U/L (0-35); SODIUM 141 mmol/L (137-145); Total Protein 7.5 g/dL (6.3-8.2)
[2022-02-20 18:04] VITALS: BP 128/72; PULSE 81; O2SAT 96
--- NOTE | 2022-02-21 08:38 | XRAY ---
Indication: Short of breath. Palpitations. Comparison: February 14, 2022. Portable chest again demonstrates normal heart, lungs, and bony thorax with incidental left chest electronic device.
== END 2022-02-20 18:11 | disposition home or self-care (01) ==
LOC: ED 16:15
DX: R00.0 Tachycardia, unspecified (principal); R07.9 Chest pain, unspecified
CPT/HCPCS: 36000; 36415; 71045; 80053; 81015; 82150; 83605; 83690; 83880; 84484; 84703; 85025; 85379; 85610; 85730; 93005; 96360; 99284

== ENCOUNTER 2022-05-03 20:57 | Emergency (ER) | payer OTHER ==
[2022-05-03 21:23] VITALS: BP 153/57; PULSE 140; O2SAT 98
--- NOTE | 2022-05-03 21:31 | ERPHSYRPT ---
- History of Present Illness Time Seen by Provider: 05/03/22 21:29 Source: patient Exam Limitations: no limitations Patient Subjective Stated Complaint: pt states she has been having increased anxiety since approx 1730 Triage Nursing Assessment: pt alert and oriented. answers questions approp. pt ambulatory with steady gait noted. respirations nonlabored with lungs cta. skin hot and dry. heart rate 140 on monitor Physician History: Patient is a 26-year-old female with significant past medical history of generalized anxiety disorder was diagnosed with COVID 4 days ago. Coronavirus disease related problem include fever but she denies any other symptoms. Overall she states that she is feeling fine and she is getting better with COVID infection but since last 1 to 2 days see her anxiety has increased tremendously she feels so panicky. Patient already has been taking buspirone and hydroxyzine but it has not been helping. She is complaining of palpitation and feeling panicky inside. Her symptoms got worse so she came to the emergency room to get some help to relieve her anxiety. Timing/Duration: today Severity: moderate Associated Symptoms: denies symptoms Allergies/Adverse Reactions: sulfamethoxazole [From Bactrim DS] Allergy (Severe, Verified 05/03/22 21:23) RAPID HEART RATE trimethoprim [From Bactrim DS] Allergy (Severe, Verified 05/03/22 21:23) RAPID HEART RATE diphenhydramine HCl [From Benadryl] Adverse Reaction (Intermediate, Verified 05/03/22 21:23) "OVER-REACTS AND ACTS DRUNK" Home Medications: dilTIAZem HCL [Diltiazem HCl] 1 cap PO BID 02/09/22 [History] Buspirone HCl 5 mg [Buspar 5 mg] 5 mg PO DAILY 02/20/22 [History] Hydroxyzine HCl 25 mg [Atarax 25 mg] 25 mg PO HS 05/03/22 [History] Hx Tetanus, Diphtheria Vaccination/Date Given: Yes Hx Influenza Vaccination/Date Given: No Hx Pneumococcal Vaccination/Date Given: No Immunizations Up to Date: Yes Travel Risk - International Travel Have you traveled outside of the country in past 3 weeks: No - Coronavirus Screening Are you exhibiting any of the following symptoms?: Yes Symptoms: Fever, Cough: New Onset, Headaches/Body Aches/Fatigue Close contact with a COVID-19 positive Pt in past 14-21 Days: Yes - Vaccine Status Have you recieved a Covid-19 vaccination: No - Review of Systems Constitutional: Fever, No Chills Eyes: No Symptoms Ears, Nose, & Throat: No Symptoms Respiratory: No Cough, No Dyspnea Cardiac: No Chest Pain, No Edema, No Syncope Abdominal/Gastrointestinal: No Abdominal Pain, No Nausea, No Vomiting, No Diarrhea Genitourinary Symptoms: No Dysuria Musculoskeletal: No Back Pain, No Neck Pain Skin: No Rash Neurological: No Dizziness, No Focal Weakness, No Sensory Changes Psychological: Anxiety Endocrine: No Symptoms All Other Systems: Reviewed and Negative - Past Medical History Pertinent Past Medical History: Yes Neurological History: No Pertinent History ENT History: No Pertinent History Cardiac History: Other Respiratory History: No Pertinent History Endocrine Medical History: No Pertinent History Musculoskeletal History: No Pertinent History GI Medical History: No Pertinent History History: No Pertinent History Psycho-Social History: Anxiety, Bipolar, Panic Disorder Female Reproductive Disorders: Other Other Medical History: PCOS, tachycardia - Past Surgical History Past Surgical History: No Neuro Surgical History: No Pertinent History Cardiac: No Pertinent History Respiratory: No Pertinent History Gastrointestinal: No Pertinent History Genitourinary: No Pertinent History Musculoskeletal: No Pertinent History Female Surgical History: No Pertinent History - Social History Smoking Status: Never smoker Exposure to second hand smoke: Yes Alcohol Use: None Drug Use: none Patient Lives Alone: No Significant Family History: no pertinent family hx - Female History Hx Last Menstrual Period: last month Hx Now: No - Nursing Vital Signs Nursing Vital Signs: Initial Vital Signs Temperature 101.9 F 05/03/22 21:14 Pulse Rate 140 H 05/03/22 21:14 Respiratory Rate 18 05/03/22 21:14 Blood Pressure 153/57 05/03/22 21:14 O2 Sat by Pulse Oximetry 98 05/03/22 21:14 Pain Scale Pain Intensity 4 - Physical Exam General Appearance: no apparent distress, alert Eye Exam: PERRL/EOMI, eyes nml inspection Ears, Nose, Throat Exam: normal ENT inspection, TMs normal, pharynx normal, moist mucous membranes Neck Exam: normal inspection, non-tender, supple, full range of motion Respiratory Exam: normal breath sounds, lungs clear, No respiratory distress Cardiovascular Exam: regular rate/rhythm, normal heart sounds, normal peripheral pulses Gastrointestinal/Abdomen Exam: soft, normal bowel sounds, No tenderness, No mass Back Exam: normal inspection, normal range of motion, No CVA tenderness, No vertebral tenderness Extremity Exam: normal inspection, normal range of motion, pelvis stable Neurologic Exam: alert, oriented x 3, cooperative, normal mood/affect, nml cerebellar function, nml station & gait, sensation nml, No motor deficits Skin Exam: normal color, warm, dry, No rash Lymphatic Exam: No adenopathy SpO2: 98 - Course Nursing assessment & vital signs reviewed: Yes Ordered Tests: Medication Summary Discontinued Medications Generic Name Dose Route Start Last Admin Trade Name Jose Luis PRN Reason Stop Dose Admin Lorazepam 2 mg 05/03/22 21:32 Lorazepam 2 Mg/1 Ml 2 Mg Vial IM 05/03/22 21:33 STAT ONE - Progress Progress: improved - Departure Departure Disposition: Home Clinical Impression: Panic disorder, Anxiety disorder due to COVID-19 Condition: Stable Critical Care Time: No Referrals: JULISA SMITH [employer] DRIVER [Primary Care Provider] - Follow up/PCP as directed Instructions: Generalized Anxiety Disorder, Anxiety, Adult (DC), COVID-19 (DC) Additional Instructions: Discharge/Care Plan JIMY YOO was seen on 05/03/22 in the Emergency Room. The patient was counseled regarding Diagnosis,Lab results, Imaging studies, need for follow up and when to return to the Emergency Room. Prescriptions given: Discharge Note I have spoken with the patient and/or caregivers. I have explained the patient's condition, diagnosis and treatment plan based on the information available to me at this time. I have answered the patient's and/or caregiver's questions and addressed any concerns. The patient and/or caregivers have as good understanding of the patient's diagnosis, condition and treatment plan as can be expected at this point. The vital signs have been stable. The patient's condition is stable and appropriate for discharge from the emergency department. The patient will pursue further outpatient evaluation with the primary care physician or other designated or consulting physician as outlined in the discharge instructions. The patient and/or caregivers are agreeable to this plan of care and follow-up instructions have been explained in detail. The patient and/or caregivers have received these instruction. The patient/and or caregivers are aware that any significant change in condition or worsening of symptoms should prompt an immediate return to this or the closest emergency department or call 911. Prescriptions: Lorazepam 1 mg [Ativan 1 MG] 2 mg PO BID PRN #10 tablet PRN Reason: Anxiety
[2022-05-03] MEDS ORDERED: Ativan 2 MG/1 ML VIAL IM ONE (21:32)
[2022-05-03] MEDS ORDERED: Ativan 2 MG/1 ML VIAL ONE (21:38)
[2022-05-03] MEDS ORDERED: TYLENOL EXTRA STRENGTH 500 MG PO ONE (21:46)
[2022-05-03] MEDS ORDERED: TYLENOL EXTRA STRENGTH 500 MG ONE (21:47)
== END 2022-05-03 22:23 | disposition home or self-care (01) ==
LOC: ED 20:57
DX: F41.0 Panic disorder [episodic paroxysmal anxiety] (principal); F41.1 Generalized anxiety disorder; F43.0 Acute stress reaction; U07.1 COVID-19; R50.9 Fever, unspecified; R00.2 Palpitations; Z79.899 Other long term (current) drug therapy; Z28.310 Unvaccinated for COVID-19
CPT/HCPCS: 96372; 99283; J2060; A9270-GY

== ENCOUNTER 2022-08-21 13:25 | Emergency (ER) | payer OTHER ==
[2022-08-21] MEDS ORDERED: DECADRON 10MG INJ. PO ONE (14:06)
[2022-08-21] MEDS ORDERED: TORAdol 30 mg Injection IM ONE (14:06)
[2022-08-21 14:07] LABS: Appearance CLEAR (CLEAR); Bilirubin NEGATIVE (NEGATIVE); Dipstick done @ ? MAIN LAB; Glucose NEGATIVE (NEGATIVE); Ketones NEGATIVE (NEGATIVE); Nitrite NEGATIVE (NEGATIVE); Ph 8.5 (5-6); Protein,Urine Dip TRACE (Negative); RBC NEGATIVE Ery/ul (0-5); Urobilinogen 0.2 mg/dL (0-1)
[2022-08-21 14:09] LABS: Epithelial Cells RARE /HPF (FEW); Mucus SLIGHT /HPF (NEGATIVE); RBC 0-2 /HPF (0-2); Urine Cultured Indicated? NO; WBC 0-2 /HPF (0-5)
[2022-08-21] MEDS ORDERED: TORAdol 30 mg Injection ONE (14:13)
[2022-08-21 14:14] LABS: Group A Strep DETECTED (NEGATIVE)
[2022-08-21] MEDS ORDERED: Decadron 4 MG PO ONE (14:15)
[2022-08-21 14:30] LABS: INFLUENZA A NEGATIVE (NEGATIVE); INFLUENZA B NEGATIVE (NEGATIVE); RESPIRATORY SYNCTIAL VIRUS NEGATIVE (Negative); SARS-CoV-2 Xpert Express NEGATIVE (NEGATIVE)
[2022-08-21 14:36] VITALS: BP 139/79; PULSE 88; O2SAT 98
--- NOTE | 2022-08-21 14:46 | ERPHSYRPT ---
- History of Present Illness Time Seen by Provider: 08/21/22 13:50 Source: patient Exam Limitations: no limitations Patient Subjective Stated Complaint: PT states "I have been fighting a sore throat for a week now and I went [facility] yesterday and they said I have strep but they did not call anything in for me. I am not able to eat or drink because it hurts to bad." Triage Nursing Assessment: PT presented alert and oriented X 3, skin pwd. Pt ambulates with an upright steady gait, able to speak in clear full sentences. PT resting comfortably on the bed. Physician History: 27 years old female presented in ER with 1 week history of sore throat with progressive worsening. Patient reports moderate intensity sharp pain with swallowing and sometimes drinking water she gets choked on. She was seen at urgent care yesterday, was diagnosed with strep but no antibiotics were sent to the pharmacy. Reports fever and chills with minimal nonproductive cough. Reports it started initially as a URI symptoms and gradually went down to throat and cough. Timing/Duration: week(s) (1), gradual onset, worse Cough Quality/Degree: mild, dry cough Possible Cause: unknown cause Associated Symptoms: fever, chills, cough, muscle aches, nasal congestion, nasal drainage, sinus infection, sore throat, No chest pain/soreness Allergies/Adverse Reactions: sulfamethoxazole [From Bactrim DS] Allergy (Severe, Verified 05/03/22 21:23) RAPID HEART RATE trimethoprim [From Bactrim DS] Allergy (Severe, Verified 05/03/22 21:23) RAPID HEART RATE diphenhydramine HCl [From Benadryl] Adverse Reaction (Intermediate, Verified 05/03/22 21:23) "OVER-REACTS AND ACTS DRUNK" Home Medications: dilTIAZem HCL [Diltiazem HCl] 1 cap PO BID 02/09/22 [History] Buspirone HCl 5 mg [Buspar 5 mg] 5 mg PO DAILY 02/20/22 [History] Hydroxyzine HCl 25 mg [Atarax 25 mg] 25 mg PO HS 05/03/22 [History] Hx Tetanus, Diphtheria Vaccination/Date Given: No Hx Influenza Vaccination/Date Given: No Hx Pneumococcal Vaccination/Date Given: No Immunizations Up to Date: Yes Travel Risk - International Travel Have you traveled outside of the country in past 3 weeks: No - Coronavirus Screening Are you exhibiting any of the following symptoms?: No Close contact with a COVID-19 positive Pt in past 14-21 Days: No - Vaccine Status Have you recieved a Covid-19 vaccination: No - Review of Systems Constitutional: Fever, Chills Eyes: No Symptoms Ears, Nose, & Throat: Nose Congestion, Throat Pain, Throat Swelling, Painful Swallowing Respiratory: Cough, No Dyspnea, No Wheezing Cardiac: No Symptoms Abdominal/Gastrointestinal: No Symptoms Genitourinary Symptoms: No Symptoms Musculoskeletal: No Symptoms Neurological: No Symptoms Psychological: No Symptoms Hematologic/Lymphatic: No Symptoms Immunological/Allergic: No Symptoms - Past Medical History Pertinent Past Medical History: Yes Neurological History: No Pertinent History ENT History: No Pertinent History Cardiac History: Other Respiratory History: No Pertinent History Endocrine Medical History: No Pertinent History Musculoskeletal History: No Pertinent History GI Medical History: No Pertinent History History: No Pertinent History Psycho-Social History: Anxiety, Bipolar, Panic Disorder Female Reproductive Disorders: Other Other Medical History: PCOS, tachycardia - Past Surgical History Past Surgical History: No Neuro Surgical History: No Pertinent History Cardiac: No Pertinent History Respiratory: No Pertinent History Gastrointestinal: No Pertinent History Genitourinary: No Pertinent History Musculoskeletal: No Pertinent History Female Surgical History: No Pertinent History - Social History Smoking Status: Never smoker Exposure to second hand smoke: Yes Alcohol Use: None Drug Use: none Patient Lives Alone: No Significant Family History: no pertinent family hx - Female History Hx Last Menstrual Period: 08/08/2022 Hx Now: No - Nursing Vital Signs Nursing Vital Signs: Initial Vital Signs Temperature 98.2 F 08/21/22 13:33 Pulse Rate 111 H 08/21/22 13:33 Respiratory Rate 20 08/21/22 13:33 Blood Pressure 133/71 08/21/22 13:33 O2 Sat by Pulse Oximetry 97 08/21/22 13:33 Pain Scale Pain Intensity 4 - Physical Exam General Appearance: no apparent distress, alert Eye Exam: PERRL/EOMI Ears, Nose, Throat Exam: moist mucous membranes, pharyngeal erythema, tonsillar exudate Neck Exam: normal inspection, non-tender, supple, full range of motion, lymphadenopathy Respiratory Exam: normal breath sounds, lungs clear Cardiovascular Exam: regular rate/rhythm, normal heart sounds Gastrointestinal/Abdomen Exam: soft Back Exam: normal inspection, normal range of motion Extremity Exam: normal inspection, normal range of motion Neurologic Exam: alert, oriented x 3, cooperative Skin Exam: normal color Lymphatic Exam: adenopathy SpO2 Interpretation: normal SpO2: 98 O2 Delivery: Room Air Ordered Tests: Active Orders 24 hr Category Date Time Status UA W/RFX CULTURE Stat Lab 08/21/22 13:44 Completed Medication Summary Discontinued Medications Generic Name Dose Route Start Last Admin Trade Name Jose Luis PRN Reason Stop Dose Admin Dexamethasone 10 mg 08/21/22 14:15 08/21/22 14:20 Dexamethasone 4 Mg Tablet PO 08/21/22 14:16 10 mg NOW ONE Administration Ketorolac Tromethamine 30 mg 08/21/22 14:06 08/21/22 14:22 Ketorolac Tromethamine 30 Mg/Ml Inj IM 08/21/22 14:07 30 mg STAT ONE Administration Ketorolac Tromethamine Confirm 08/21/22 14:13 Ketorolac Tromethamine 30 Mg/Ml Inj Administered 08/21/22 14:14 Dose 30 mg .ROUTE .STK-MED ONE Lab/Rad Data: Laboratory Results 08/21/22 08/21/22 Range/Units 13:44 13:30 Urinalys Dipstick Clnc MAIN LAB Urine Color YELLOW (YELLOW) Urine Appearance CLEAR (CLEAR) Urine pH 8.5 A (5-6) Ur Specific [place] 1.020 (1.005-1.025) POC Urine Protein Conf TRACE A (Negative) Urine Ketones NEGATIVE (NEGATIVE) Urine Nitrite NEGATIVE (NEGATIVE) Urine Bilirubin NEGATIVE (NEGATIVE) Urine Urobilinogen 0.2 (0-1) mg/dL Urine Leukocytes NEGATIVE (NEGATIVE) Urine WBC (Auto) 0-2 (0-5) /HPF Urine RBC (Auto) 0-2 (0-2) /HPF U Epithel Cells (Auto) RARE (FEW) /HPF Urine Bacteria (Auto) NONE (NEGATIVE) /HPF Urine RBC NEGATIVE (0-5) Demar/ul Urine Mucus (Auto) SLIGHT A (NEGATIVE) /HPF Ur Culture Indicated? NO Urine Glucose NEGATIVE (NEGATIVE) mg/dL Influenza Type A Ag NEGATIVE (NEGATIVE) Influenza Type B Ag NEGATIVE (NEGATIVE) RSV (PCR) NEGATIVE (Negative) SARS-CoV-2 (PCR) NEGATIVE (NEGATIVE) Group A Strep Antibody DETECTED (NEGATIVE) - Progress Progress: improved, re-examined Air Movement: good Progress Note: 08/21/22 14:43 She is given Toradol for symptomatic relief. Patient has diffuse pharyngeal swelling, given a dose of Decadron. Offered shot of Bicillin which she refused. We will put her on penicillin V along with short course of steroid and Tylenol/ibuprofen as needed. Lungs bilateral clear to auscultation. Do not think she needs any other work-up and is stable for discharge. Flu and COVID are negative. Blood Culture(s) Obtained: No Antibiotics given: Yes Counseled pt/family regarding: lab results, diagnosis, need for follow-up - Departure Departure Disposition: Home Clinical Impression: Pharyngitis, streptococcal, acute Condition: Stable Critical Care Time: No Referrals: JULISA SMITH NP [Primary Care Provider] - Follow Up with PCP/3 days Instructions: Strep Throat (DC) Additional Instructions: Take Tylenol/ibuprofen as needed for pain. Plenty of fluids to keep yourself well-hydrated. Follow-up with primary care for reevaluation. Return to ER for worsening soreness in throat, difficulty swallowing/drinking or if having difficulty breathing etc. Prescriptions: Prednisone 20 mg [Deltasone 20 mg] 40 mg PO DAILY 5 Days #10 tablet Penicillin V Potassium 500 mg PO TID 10 Days #30 tablet
== END 2022-08-21 15:00 | disposition home or self-care (01) ==
LOC: ED 13:25
DX: J02.0 Streptococcal pharyngitis (principal); B95.0 Streptococcus, group A, as the cause of diseases classified elsewhere; R50.9 Fever, unspecified; R05.9 Cough, unspecified; Z79.52 Long term (current) use of systemic steroids; Z28.310 Unvaccinated for COVID-19
CPT/HCPCS: 0241U; 81015; 87651; 96372; 99283; J1885; A9270-GY

== ENCOUNTER 2022-09-02 11:30 | Emergency (ER) | payer OTHER ==
[2022-09-02] MEDS ORDERED: DELTASONE 20 MG PO ONE (12:25)
[2022-09-02] MEDS ORDERED: TYLENOL 325 MG PO ONE (12:29)
[2022-09-02] MEDS ORDERED: DELTASONE 20 MG ONE (12:31)
[2022-09-02] MEDS ORDERED: TYLENOL 325 MG ONE (12:31)
--- NOTE | 2022-09-02 12:34 | ERPHSYRPT ---
- History of Present Illness Time Seen by Provider: 09/02/22 12:29 Exam Limitations: no limitations Patient Subjective Stated Complaint: C/o cough, headache, overall not feeling well x 3 days. Diagnosed with strep 9 or 10 days ago and has almost finished course of PCN. Triage Nursing Assessment: Patient ambulates to bed 6, changed into gown, placed on monitor. C/o headache, generally not feeling well, non productive cough x 3 days. Diagnosed with strep 9-10 days ago, 1 day left of PCN. Denies sore throat. Denies covid/flu exposure. Slightly tachycardic and slightly hypertensive. O2 stable on RA. Respiratory rate within normal limitis. A & Ox3. No redness or swelling noted to throat. Physician History: Patient is a 27-year-old female presents emergency department for evaluation of a cough and headache. Symptoms have been ongoing for 3 days. Patient currently on antibiotics for strep throat. Patient was diagnosed with strep approximately 9 days ago. Patient not on control. No history of PE DVT no obvious risk factors for PE DVT patient had been feeling well up until recently. No trauma. No fever. No nausea vomiting or diaphoresis. No chest pain. No shortness of breath. Symptoms are moderate in intensity. No specific worsening or improving factors. Patient states she is healthy. She voices no other complaints or concerns at this time. Patient denies the possibility of . Patient has already tested COVID negative Portions of this note were created with voice recognition technology. There may be grammatical, spelling, punctuation or sound alike errors Timing/Duration: day(s) (3 days) Severity: moderate Modifying Factors: Improves With: nothing Associated Symptoms: denies symptoms, headaches Allergies/Adverse Reactions: sulfamethoxazole [From Bactrim DS] Allergy (Severe, Verified 05/03/22 21:23) RAPID HEART RATE trimethoprim [From Bactrim DS] Allergy (Severe, Verified 05/03/22 21:23) RAPID HEART RATE diphenhydramine HCl [From Benadryl] Adverse Reaction (Intermediate, Verified 05/03/22 21:23) "OVER-REACTS AND ACTS DRUNK" Home Medications: dilTIAZem HCL [Diltiazem HCl] 1 cap PO BID 02/09/22 [History] Buspirone HCl 5 mg [Buspar 5 mg] 5 mg PO DAILY 02/20/22 [History] Hydroxyzine HCl 25 mg [Atarax 25 mg] 25 mg PO HS 05/03/22 [History] Hx Tetanus, Diphtheria Vaccination/Date Given: No Hx Influenza Vaccination/Date Given: No Hx Pneumococcal Vaccination/Date Given: No Travel Risk - International Travel Have you traveled outside of the country in past 3 weeks: No - Coronavirus Screening Are you exhibiting any of the following symptoms?: Yes Symptoms: Cough: New Onset, Headaches/Body Aches/Fatigue - Vaccine Status Have you recieved a Covid-19 vaccination: No - Review of Systems Constitutional: No Symptoms, No Fever, No Chills Eyes: No Symptoms Ears, Nose, & Throat: No Symptoms Respiratory: No Symptoms, No Cough, No Dyspnea Cardiac: No Symptoms, No Chest Pain, No Edema, No Syncope Abdominal/Gastrointestinal: No Symptoms, No Abdominal Pain, No Nausea, No Vomiting, No Diarrhea Genitourinary Symptoms: No Symptoms, No Dysuria Musculoskeletal: No Symptoms, No Back Pain, No Neck Pain Skin: No Symptoms, No Rash Neurological: No Symptoms, No Dizziness, No Focal Weakness, No Sensory Changes Psychological: No Symptoms Endocrine: No Symptoms Hematologic/Lymphatic: No Symptoms Immunological/Allergic: No Symptoms All Other Systems: Reviewed and Negative - Past Medical History Pertinent Past Medical History: Yes Neurological History: No Pertinent History ENT History: No Pertinent History Cardiac History: Other Respiratory History: No Pertinent History Endocrine Medical History: No Pertinent History Musculoskeletal History: No Pertinent History GI Medical History: No Pertinent History History: No Pertinent History Psycho-Social History: Anxiety, Bipolar, Panic Disorder Female Reproductive Disorders: Other Other Medical History: PCOS, tachycardia - Past Surgical History Past Surgical History: No Neuro Surgical History: No Pertinent History Cardiac: No Pertinent History Respiratory: No Pertinent History Gastrointestinal: No Pertinent History Genitourinary: No Pertinent History Musculoskeletal: No Pertinent History Female Surgical History: No Pertinent History - Social History Smoking Status: Never smoker Exposure to second hand smoke: Yes Alcohol Use: None Drug Use: none Patient Lives Alone: No Significant Family History: no pertinent family hx - Female History Hx Last Menstrual Period: 08/08/2022 Hx Now: No - Nursing Vital Signs Nursing Vital Signs: Initial Vital Signs Temperature 98.9 F 09/02/22 11:59 Pulse Rate 118 H 09/02/22 11:59 Respiratory Rate 18 09/02/22 11:59 Blood Pressure 136/102 09/02/22 11:59 O2 Sat by Pulse Oximetry 97 09/02/22 11:59 Pain Scale Pain Intensity 0 - Physical Exam General Appearance: no apparent distress, alert Eye Exam: PERRL/EOMI, eyes nml inspection Ears, Nose, Throat Exam: normal ENT inspection, TMs normal, pharynx normal, moist mucous membranes Neck Exam: normal inspection, non-tender, supple, full range of motion Respiratory Exam: normal breath sounds, diminished breath sounds, rhonchi, wheezing (Faint wheezing at bases bilaterally. No respiratory distress), No respiratory distress Cardiovascular Exam: regular rate/rhythm, normal heart sounds, normal peripheral pulses Gastrointestinal/Abdomen Exam: soft, normal bowel sounds, No tenderness, No mass Back Exam: normal inspection, normal range of motion, No CVA tenderness, No vertebral tenderness Extremity Exam: normal inspection, normal range of motion, pelvis stable, other (Negative Homans' sign bilaterally), No swelling Neurologic Exam: alert, oriented x 3, cooperative, normal mood/affect, nml cerebellar function, nml station & gait, sensation nml, No motor deficits Skin Exam: normal color, warm, dry, No rash Lymphatic Exam: No adenopathy SpO2 Interpretation: normal SpO2: 99 O2 Delivery: Room Air - Course Nursing assessment & vital signs reviewed: Yes - Radiology Exams Chest X-ray Interpretation: Interpreted by me (No infiltrate or consolidation. Normal cardiac silhouette. Intact bony thorax) Ordered Tests: Active Orders 24 hr Category Date Time Status CHEST 1 VIEW (PORTABLE) Stat Exams 09/02/22 12:21 Completed Medication Summary Discontinued Medications Generic Name Dose Route Start Last Admin Trade Name Jose Luis PRN Reason Stop Dose Admin Acetaminophen 975 mg 09/02/22 12:29 09/02/22 12:32 Acetaminophen 325 Mg Tablet PO 09/02/22 12:30 975 mg STAT ONE Administration Acetaminophen Confirm 09/02/22 12:31 Acetaminophen 325 Mg Tablet Administered 09/02/22 12:32 Dose 975 mg .ROUTE .STK-MED ONE Prednisone 60 mg 09/02/22 12:25 09/02/22 12:32 Prednisone 20 Mg Tablet PO 09/02/22 12:26 60 mg STAT ONE Administration Prednisone Confirm 09/02/22 12:31 Prednisone 20 Mg Tablet Administered 09/02/22 12:32 Dose 60 mg .ROUTE .STK-MED ONE - Progress Progress: improved Progress Note: Patient reassessed. She feels much better. Lungs clear. Chest x-ray negative. Prescription for albuterol inhaler azithromycin and prednisone forwarded to patient's pharmacy. Patient agrees to follow-up with primary care doctor within 48 hours for evaluation. Portions of this note were created with voice recognition technology. There may be grammatical, spelling, punctuation or sound alike errors 09/02/22 13:05 Counseled pt/family regarding: diagnosis, need for follow-up, rad results - Departure Departure Disposition: Home Clinical Impression: Bronchitis, Cough Condition: Stable Critical Care Time: No Referrals: JULISA SMITH NP [Primary Care Provider] - Follow up/PCP as directed Additional Instructions: Discharge/Care Plan JIMY YOO was seen on 09/02/22 in the Emergency Room. The patient was counseled regarding Diagnosis,Lab results, Imaging studies, need for follow up and when to return to the Emergency Room. Prescriptions given: Discharge Note I have spoken with the patient and/or caregivers. I have explained the patient's condition, diagnosis and treatment plan based on the information available to me at this time. I have answered the patient's and/or caregiver's questions and add ressed any concerns. The patient and/or caregivers have as good understanding of the patient's diagnosis, condition and treatment plan as can be expected at this point. The vital signs have been stable. The patient's condition is stable and appropriate for discharge from the emergency department. The patient will pursue further outpatient evaluation with the primary care physician or other designated or consulting physician as outlined in the discharge instructions. The patient and/or caregivers are agreeable to this plan of care and follow-up instructions have been explained in detail. The patient and/or caregivers have received these instruction. The patient/and or caregivers are aware that any significant change in condition or worsening of symptoms should prompt an immediate return to this or the closest emergency department or call 911. Prescriptions: Prednisone 10 mg [Deltasone 10 mg] 40 mg PO DAILY 3 Days #12 tablet Albuterol 8 gm Mdi Hfa [Ventolin Hfa MDI] 8 gm IH Q4H #1 Azithromycin 250 mg [Zithromax 250 MG TABLET] 250 mg PO ZPACK #6 tablet
--- NOTE | 2022-09-02 12:46 | XRAY ---
Indication: Short of breath. Comparison: February 20, 2022 Portable chest again demonstrates normal heart, lungs, and bony thorax.
[2022-09-02 13:09] VITALS: BP 138/98; PULSE 91; O2SAT 97
== END 2022-09-02 13:05 | disposition home or self-care (01) ==
LOC: ED 11:30
DX: J40 Bronchitis, not specified as acute or chronic (principal); R05.1 Acute cough; R51.9 Headache, unspecified; Z79.899 Other long term (current) drug therapy; Z28.310 Unvaccinated for COVID-19; Z79.52 Long term (current) use of systemic steroids
CPT/HCPCS: 71045; 99283; A9270-GY

== ENCOUNTER 2022-11-11 22:22 | Emergency (ER) | payer OTHER ==
[2022-11-11 23:58] VITALS: O2SAT 98
--- NOTE | 2022-11-12 00:04 | ERPHSYRPT ---
- History of Present Illness Time Seen by Provider: 11/12/22 00:01 Source: patient Physician History: Patient is a 19-year-old female presents for emergency department for evaluation of a cough. 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 Patient began to cough violently. Patient states she could not catch her breath. Patient vomited twice. Patient has had similar episodes in the past attributed to allergies. Patient is scheduled to undergo allergy testing. After patient left the restaurant symptoms improved. Patient went home treat herself with a nebulizer treatment. Patient currently on prednisone. Patient has an epinephrine pen. However patient did not use it. Patient states she thought about it. But symptoms improved. On arrival to our ED patient was asymptomatic. Lungs are clear. Patient is not short of breath. Appears at something in the restaurant may have triggered bronchospasms. Currently symptomatic no complaints otherwise. Portions of this note were created with voice recognition technology. There may be grammatical, spelling, punctuation or sound alike errors Timing/Duration: today Severity: moderate Modifying Factors: Improves With: medication Associated Symptoms: denies symptoms Allergies/Adverse Reactions: sulfamethoxazole [From Bactrim DS] Allergy (Severe, Verified 11/12/22 00:07) RAPID HEART RATE trimethoprim [From Bactrim DS] Allergy (Severe, Verified 11/12/22 00:07) RAPID HEART RATE diphenhydramine HCl [From Benadryl] Adverse Reaction (Intermediate, Verified 11/12/22 00:07) "OVER-REACTS AND ACTS DRUNK" Home Medications: dilTIAZem HCL [Diltiazem HCl] 1 cap PO BID 02/09/22 [History] Buspirone HCl 5 mg [Buspar 5 mg] 5 mg PO DAILY 02/20/22 [History] Hydroxyzine HCl 25 mg [Atarax 25 mg] 25 mg PO HS 05/03/22 [History] Prednisone 20 mg [Deltasone 20 mg] 20 mg PO DAILY 11/12/22 [History] Hx Tetanus, Diphtheria Vaccination/Date Given: No Hx Influenza Vaccination/Date Given: No Hx Pneumococcal Vaccination/Date Given: No Travel Risk - Vaccine Status Have you recieved a Covid-19 vaccination: No - Review of Systems Constitutional: No Symptoms, No Fever, No Chills Eyes: No Symptoms Ears, Nose, & Throat: No Symptoms Respiratory: No Symptoms, No Cough, No Dyspnea Cardiac: No Symptoms, No Chest Pain, No Edema, No Syncope Abdominal/Gastrointestinal: No Symptoms, No Abdominal Pain, No Nausea, No Vomiting, No Diarrhea Genitourinary Symptoms: No Symptoms, No Dysuria Musculoskeletal: No Symptoms, No Back Pain, No Neck Pain Skin: No Symptoms, No Rash Neurological: No Symptoms, No Dizziness, No Focal Weakness, No Sensory Changes Psychological: No Symptoms Endocrine: No Symptoms Hematologic/Lymphatic: No Symptoms Immunological/Allergic: No Symptoms All Other Systems: Reviewed and Negative - Past Medical History Pertinent Past Medical History: Yes Neurological History: No Pertinent History ENT History: No Pertinent History Cardiac History: Other Respiratory History: No Pertinent History Endocrine Medical History: No Pertinent History Musculoskeletal History: No Pertinent History GI Medical History: No Pertinent History History: No Pertinent History Psycho-Social History: Anxiety, Bipolar, Panic Disorder Female Reproductive Disorders: Other Other Medical History: PCOS, tachycardia - Past Surgical History Past Surgical History: No Neuro Surgical History: No Pertinent History Cardiac: No Pertinent History Respiratory: No Pertinent History Gastrointestinal: No Pertinent History Genitourinary: No Pertinent History Musculoskeletal: No Pertinent History Female Surgical History: No Pertinent History - Social History Smoking Status: Never smoker Exposure to second hand smoke: Yes Alcohol Use: None Drug Use: none Patient Lives Alone: No Significant Family History: no pertinent family hx - Nursing Vital Signs Nursing Vital Signs: Initial Vital Signs Temperature 98.7 F 11/11/22 23:57 Pulse Rate 110 H 11/11/22 23:57 Respiratory Rate 18 11/11/22 23:57 Blood Pressure 156/87 11/11/22 23:57 O2 Sat by Pulse Oximetry 98 11/11/22 23:57 Pain Scale Pain Intensity 0 - Physical Exam General Appearance: no apparent distress, alert Eye Exam: PERRL/EOMI, eyes nml inspection Ears, Nose, Throat Exam: normal ENT inspection, TMs normal, pharynx normal, moist mucous membranes Neck Exam: normal inspection, non-tender, supple, full range of motion Respiratory Exam: normal breath sounds, lungs clear, airway intact, No respiratory distress Cardiovascular Exam: regular rate/rhythm, normal heart sounds, normal peripheral pulses Gastrointestinal/Abdomen Exam: soft, normal bowel sounds, No tenderness, No mass Back Exam: normal inspection, normal range of motion, No CVA tenderness, No vertebral tenderness Extremity Exam: normal inspection, normal range of motion, pelvis stable Neurologic Exam: alert, oriented x 3, cooperative, normal mood/affect, nml cerebellar function, nml station & gait, sensation nml, No motor deficits Skin Exam: normal color, warm, dry, No rash Lymphatic Exam: No adenopathy SpO2 Interpretation: normal SpO2: 98 O2 Delivery: Room Air - Course Nursing assessment & vital signs reviewed: Yes - Progress Progress: improved Progress Note: 19-year-old female presents to our ED for evaluation of acute cough. Symptoms have since resolved. Physical exam is negative. Patient's symptoms were acute in onset. No active symptomology. Patient has history of allergies which likely contribute the patient's symptoms. No specific testing ordered. No specific management indicated as patient asymptomatic at time of arrival. Will discharge home. 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 Level of service provided is minimal. Complexity of the problem appears to be moderate however patient asymptomatic at time of arrival. Risk of complications or risk of morbidity/mortality patient management is not applicable as patient had no symptomology upon arrival. No critical care time. 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 Times spent discharging patient approximately 5 minutes. Discharge diagnosis is bronchospasm. And cough. Portions of this note were created with voice recognition technology. There may be grammatical, spelling, punctuation or sound alike errors 11/12/22 00:14 Counseled pt/family regarding: diagnosis, need for follow-up Medical Desision Making - Diagnostic Testing Diagnostic Testing: Diagnostic tests were ordered,analyzed, and reviewed by me and used in my medical decision making for this patient. Radiologic studies (if ordered) were read by me initially then discussed with the radiologist . - Departure Departure Disposition: Home Clinical Impression: Bronchospasm, Cough Condition: Stable Critical Care Time: No Referrals: JULISA SMITH NP [Primary Care Provider] - Follow up/PCP as directed Additional Instructions: Discharge/Care Plan NAILAJIMY RAINEY was seen on 11/12/22 in the Emergency Room. The patient was counseled regarding Diagnosis,Lab results, Imaging studies, need for follow up and when to return to the Emergency Room. Prescriptions given: Discharge Note I have spoken with the patient and/or caregivers. I have explained the patient's condition, diagnosis and treatment plan based on the information available to me at this time. I have answered the patient's and/or caregiver's questions and addressed any concerns. The patient and/or caregivers have as good understanding of the patient's diagnosis, condition and treatment plan as can be expected at this point. The vital signs have been stable. The patient's condition is stable and appropriate for discharge from the emergency department. The patient will pursue further outpatient evaluation with the primary care physician or other designated or consulting physician as outlined in the discharge instructions. The patient and/or caregivers are agreeable to this plan of care and follow-up instructions have been explained in detail. The patient and/or caregivers have received these instruction. The patient/and or caregivers are aware that any significant change in condition or worsening of symptoms should prompt an immediate return to this or the closest emergency department or call 911.
[2022-11-12 00:20] VITALS: BP 142/89; PULSE 80
== END 2022-11-12 00:18 | disposition home or self-care (01) ==
LOC: ED 22:22
DX: J98.01 Acute bronchospasm (principal); R05.1 Acute cough; R11.2 Nausea with vomiting, unspecified; Z79.52 Long term (current) use of systemic steroids; Z79.899 Other long term (current) drug therapy; Z28.310 Unvaccinated for COVID-19
CPT/HCPCS: 99281

== ENCOUNTER 2023-02-06 20:58 | Emergency (ER) | payer OTHER ==
[2023-02-06 22:12] VITALS: O2SAT 98
[2023-02-06 22:17] VITALS: BP 117/80; PULSE 98
--- NOTE | 2023-02-06 22:24 | ERPHSYRPT ---
- History of Present Illness Time Seen by Provider: 02/06/23 21:09 Source: patient Exam Limitations: no limitations Patient Subjective Stated Complaint: pt states I was out in the yard working all day and thought I chafed my vagina lip Triage Nursing Assessment: pt ambulated into the er; pt is axo x4; c/o pelvic pain; skin is PDW; no swelling or discharge present to vagina; vitals wnl Physician History: 27 years old female presented in the ER with chief complaint of vaginal lip burning/pain. Patient reports she has been outside all day long and thought she would probably chafed. She took a shower and still hurting dull aching burning pain. No vaginal discharge. Did not notice obvious swelling. Timing/Duration: today Activites at Onset: physical activity Quality: burning Onset Location: vulvar pain Pain Radiation: none Severity of Pain-Max: moderate Severity of Pain-Current: mild Sexual intercourse history: non-contributory Modifying Factors: Improves With: rest. Worsens With: movement Associated Symptoms: denies symptoms Allergies/Adverse Reactions: sulfamethoxazole [From Bactrim DS] Allergy (Severe, Verified 02/06/23 21:52) RAPID HEART RATE trimethoprim [From Bactrim DS] Allergy (Severe, Verified 02/06/23 21:52) RAPID HEART RATE diphenhydramine HCl [From Benadryl] Adverse Reaction (Intermediate, Verified 02/06/23 21:52) "OVER-REACTS AND ACTS DRUNK" Home Medications: dilTIAZem HCL [Diltiazem HCl] 1 cap PO BID 02/09/22 [History] Buspirone HCl 5 mg [Buspar 5 mg] 5 mg PO DAILY 02/20/22 [History] Hydroxyzine HCl 25 mg [Atarax 25 mg] 25 mg PO HS 05/03/22 [History] Letrozole 2.5 mg PO DAILY 02/06/23 [History] Medroxyprogesterone Acetate 10 mg PO DAILY 02/06/23 [History] Hx Tetanus, Diphtheria Vaccination/Date Given: Yes Hx Influenza Vaccination/Date Given: No Hx Pneumococcal Vaccination/Date Given: No Travel Risk - International Travel Have you traveled outside of the country in past 3 weeks: No - Coronavirus Screening Are you exhibiting any of the following symptoms?: No Close contact with a COVID-19 positive Pt in past 14-21 Days: No - Vaccine Status Have you recieved a Covid-19 vaccination: No - Review of Systems Constitutional: No Symptoms Ears, Nose, & Throat: No Symptoms Respiratory: No Symptoms Cardiac: No Symptoms Abdominal/Gastrointestinal: No Symptoms Genitourinary Symptoms: Vaginal Itching Musculoskeletal: No Symptoms Skin: Skin Lesions Neurological: No Symptoms Endocrine: No Symptoms Hematologic/Lymphatic: No Symptoms Immunological/Allergic: No Symptoms - Past Medical History Pertinent Past Medical History: Yes Neurological History: No Pertinent History ENT History: No Pertinent History Cardiac History: Other Respiratory History: No Pertinent History Endocrine Medical History: No Pertinent History Musculoskeletal History: No Pertinent History GI Medical History: No Pertinent History History: No Pertinent History Psycho-Social History: Anxiety, Bipolar, Panic Disorder Female Reproductive Disorders: Other Other Medical History: PCOS, tachycardia - Past Surgical History Past Surgical History: No Neuro Surgical History: No Pertinent History Cardiac: No Pertinent History Respiratory: No Pertinent History Gastrointestinal: No Pertinent History Genitourinary: No Pertinent History Musculoskeletal: No Pertinent History Female Surgical History: No Pertinent History - Social History Smoking Status: Never smoker Exposure to second hand smoke: Yes Alcohol Use: None Drug Use: none Patient Lives Alone: No Significant Family History: no pertinent family hx - Female History Hx Last Menstrual Period: 01/11/23 Hx Now: No (unsure) - Nursing Vital Signs Nursing Vital Signs: Initial Vital Signs Temperature 98.8 F 02/06/23 21:55 Pulse Rate 117 H 02/06/23 21:55 Respiratory Rate 16 02/06/23 21:55 Blood Pressure 136/79 02/06/23 21:55 O2 Sat by Pulse Oximetry 98 02/06/23 21:55 Pain Scale Pain Intensity 6 - Physical Exam General Appearance: no apparent distress, alert Eye Exam: PERRL/EOMI Neck Exam: normal inspection, full range of motion Respiratory Exam: normal breath sounds, lungs clear Cardiovascular Exam: regular rate/rhythm, normal heart sounds, normal peripheral pulses Gastrointestinal/Abdomen Exam: soft, normal bowel sounds Pelvic Exam: other (No swelling of labia, minimal irritation of the right labial lip, minimal tenderness. No induration, no swelling or cyst.) Extremity Exam: normal inspection, pelvis stable Neurologic Exam: alert, oriented x 3, cooperative Skin Exam: normal color SpO2 Interpretation: normal SpO2: 98 O2 Delivery: Room Air - Progress Progress: unchanged Air Movement: good Progress Note: 02/06/23 22:21 27 years old female is evaluated in the ER for right labial painAfter she was active all day long today. I did not appreciate any cyst or obvious swelling, has minimal irritation. No cyst. Recommended Tylenol ibuprofen and outpatient follow-up. Do not think needs any work-up and is stable for discharge. Blood Culture(s) Obtained: No Antibiotics given: No Counseled pt/family regarding: diagnosis, need for follow-up Medical Desision Making - Discussion of managment Agreed on:: Treatment plan, need for follow-up - Diagnostic Testing Diagnostic test were ordered, analyzed, and reviewed by me: No - Risk of complications Low Risk: Low risk of morbidity from additional dx testing or treatment - Departure Departure Disposition: Home Clinical Impression: Vaginal pain Condition: Stable Critical Care Time: No Referrals: JULISA SMITH NP [Primary Care Provider] - Follow up with PCP 2 days Instructions: Pelvic Pain (DC) Additional Instructions: Take Tylenol/ibuprofen as needed. Follow-up with your OB for reevaluation. Return to ER for any worsening.
== END 2023-02-06 22:31 | disposition home or self-care (01) ==
LOC: ED 20:58
DX: R10.2 Pelvic and perineal pain (principal); Z79.899 Other long term (current) drug therapy; Z20.828 Contact with and (suspected) exposure to other viral communicable diseases
CPT/HCPCS: 99281

== ENCOUNTER 2023-02-20 20:53 | Emergency (ER) | payer OTHER ==
--- NOTE | 2023-02-20 21:00 | ERPHSYRPT ---
- History of Present Illness Time Seen by Provider: 02/20/23 21:00 Source: patient, member of technical staff Physician History: This is a right-handed 27-year-old white female who was walking her dog and holding onto the dog's leash when the dog suddenly ran after a rabbit. Patient excellently hit her right wrist against a pole when trying to pull the dog back. This occurred prior to arrival. Patient presents with right wrist pain. Patient has a history of anxiety/panic disorder as well as tachycardia and is on Cardizem for this. Occurred: just prior to arrival Method of Injury: direct blow (Via pulm) Quality: constant, aching Severity of Pain-Max: mild (To moderate) Severity of Pain-Current: mild (To moderate) Extremities Pain Location: wrist: right Modifying Factors: Improves With: movement Associated Symptoms: none Allergies/Adverse Reactions: sulfamethoxazole [From Bactrim DS] Allergy (Severe, Verified 02/20/23 21:02) RAPID HEART RATE trimethoprim [From Bactrim DS] Allergy (Severe, Verified 02/20/23 21:02) RAPID HEART RATE diphenhydramine HCl [From Benadryl] Adverse Reaction (Intermediate, Verified 02/20/23 21:02) "OVER-REACTS AND ACTS DRUNK" Home Medications: dilTIAZem HCL [Diltiazem HCl] 1 cap PO BID 02/09/22 [History] Buspirone HCl 5 mg [Buspar 5 mg] 5 mg PO DAILY 02/20/22 [History] Hydroxyzine HCl 25 mg [Atarax 25 mg] 25 mg PO HS 05/03/22 [History] Letrozole 2.5 mg PO DAILY 02/06/23 [History] Medroxyprogesterone Acetate 10 mg PO DAILY 02/06/23 [History] Hx Tetanus, Diphtheria Vaccination/Date Given: Yes Hx Influenza Vaccination/Date Given: No Hx Pneumococcal Vaccination/Date Given: No Travel Risk - International Travel Have you traveled outside of the country in past 3 weeks: No - Coronavirus Screening Are you exhibiting any of the following symptoms?: No Close contact with a COVID-19 positive Pt in past 14-21 Days: No - Vaccine Status Have you recieved a Covid-19 vaccination: No - Review of Systems Constitutional: No Symptoms Eyes: No Symptoms Ears, Nose, & Throat: No Symptoms Respiratory: No Symptoms Cardiac: No Symptoms Abdominal/Gastrointestinal: No Symptoms Genitourinary Symptoms: No Symptoms Musculoskeletal: Injury (Right wrist) Skin: No Symptoms Neurological: No Symptoms Psychological: No Symptoms Endocrine: No Symptoms Hematologic/Lymphatic: No Symptoms Immunological/Allergic: No Symptoms All Other Systems: Reviewed and Negative - Past Medical History Pertinent Past Medical History: Yes Neurological History: No Pertinent History ENT History: No Pertinent History Cardiac History: Other Respiratory History: No Pertinent History Endocrine Medical History: No Pertinent History Musculoskeletal History: No Pertinent History GI Medical History: No Pertinent History History: No Pertinent History Psycho-Social History: Anxiety, Bipolar, Panic Disorder Female Reproductive Disorders: Other Other Medical History: PCOS, tachycardia - Past Surgical History Past Surgical History: No Neuro Surgical History: No Pertinent History Cardiac: No Pertinent History Respiratory: No Pertinent History Gastrointestinal: No Pertinent History Genitourinary: No Pertinent History Musculoskeletal: No Pertinent History Female Surgical History: No Pertinent History - Social History Smoking Status: Never smoker Exposure to second hand smoke: Yes Alcohol Use: None Drug Use: none Patient Lives Alone: No Significant Family History: no pertinent family hx - Nursing Vital Signs Nursing Vital Signs: Initial Vital Signs Temperature 98.2 F 02/20/23 21:04 Pulse Rate 92 H 02/20/23 21:04 Respiratory Rate 16 02/20/23 21:04 Blood Pressure 145/88 02/20/23 21:04 O2 Sat by Pulse Oximetry 98 02/20/23 21:04 Pain Scale Pain Intensity 5 - Course Nursing assessment & vital signs reviewed: Yes Ordered Tests: Active Orders 24 hr Category Date Time Status WRIST (MIN 3 VIEWS) Stat Exams 02/20/23 21:28 Taken - Progress Progress Note: 02/20/23 21:20 This patient's medical issue is 1 of low complexity. The level of complexity and the work-up performed is based on review of the patient's past medical history, review of the patient's medication list, review of the patient's drug allergy list, history present illness and physical findings on examination. The work-up in this patient includes x-ray of her right wrist. 02/20/23 21:48 I initially read the x-ray of her right wrist and I did not appreciate a definite fracture or dislocation. However in 1 view there was tenderness over the distal radius where she had some swelling and abrasion present. Therefore, I sent the x-rays to Dr. Mccord, our radiologist to obtain a final report. He agreed there was no definite acute fracture or dislocation. Counseled pt/family regarding: diagnosis, need for follow-up, rad results Medical Desision Making - Independent Historian Additional History obtained from: Mother - Diagnostic Testing Diagnostic test were ordered, analyzed, and reviewed by me: Yes Radiological Interpretation: Interpreted by me - Risk of complications Minimal Risk: Minimal risk of morbidity - Departure Departure Disposition: Home Clinical Impression: Contusion of right wrist Condition: Stable Critical Care Time: No Referrals: JULISA SMITH NP [Primary Care Provider] - Follow up/PCP as directed Additional Instructions: Ice pack to tender area 3 times a day for the next 48 hours. Use Tylenol and ibuprofen for pain control. Follow-up with [facility] orthopedic clinic if pain persist beyond 3 days with treatment of ice, Tylenol and ibuprofen.
[2023-02-20 21:13] VITALS: BP 145/88; PULSE 92; O2SAT 98
--- NOTE | 2023-02-21 08:36 | XRAY ---
Indication: Pain following injury. Comparison: None 3 view right wrist demonstrates radiocarpal joint space narrowing. No other bony, articular, or soft tissue abnormalities.
== END 2023-02-20 22:01 | disposition home or self-care (01) ==
LOC: ED 20:53
DX: S60.211A Contusion of right wrist, initial encounter (principal); W22.09XA Striking against other stationary object, initial encounter; Y93.K1 Activity, walking an animal; Z79.899 Other long term (current) drug therapy; Z28.310 Unvaccinated for COVID-19
CPT/HCPCS: 73110; 99282

== ENCOUNTER 2023-06-11 21:08 | Emergency (ER) | payer OTHER ==
[2023-06-11 21:19] VITALS: RESP 16; TEMP 98.4
[2023-06-11 22:22] VITALS: BP 131/85; PULSE 80; O2SAT 97
--- NOTE | 2023-06-11 22:25 | ERPHSYRPT ---
- History of Present Illness Time Seen by Provider: 06/11/23 21:30 Source: patient Exam Limitations: no limitations Patient Subjective Stated Complaint: SOB and feverish onset Friday. Triage Nursing Assessment: pt to ED c/o COVID + test on Friday. states she had sore throat and fever at that time. was seen in [facility]. reports that those sx have subsided but became SOB today that worsens with exertion. denies pain. pt does not appear in resp distress and lungs are clear. Physician History: Patient is a 27-year-old female presents emergency department for evaluation of shortness of breath that she experienced earlier in the day. Patient states she was diagnosed with COVID on Friday. At that time she was experiencing subjective fevers and a sore throat. Patient was diagnosed with COVID. Her symptoms later improved. Patient states today she felt some shortness of breath. She currently denies shortness of breath. Patient's physical exam is nonremarkable. Patient ambulated throughout our ED with normal oxygen saturations on the monitor. Patient had no shortness of breath at that time. Patient currently has no complaints. Patient that she is otherwise healthy. 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 Patient understands the importance of quarantine and avoiding contact with people while she is COVID-positive and displaying symptomology. Patient voices no other complaints or concerns at this time Portions of this note were created with voice recognition technology. There may be grammatical, spelling, punctuation or sound alike errors Timing/Duration: today Severity: mild Modifying Factors: Improves With: nothing Associated Symptoms: denies symptoms Allergies/Adverse Reactions: sulfamethoxazole [From Bactrim DS] Allergy (Severe, Verified 06/11/23 21:09) RAPID HEART RATE trimethoprim [From Bactrim DS] Allergy (Severe, Verified 06/11/23 21:09) RAPID HEART RATE diphenhydramine HCl [From Benadryl] Adverse Reaction (Intermediate, Verified 06/11/23 21:09) "OVER-REACTS AND ACTS DRUNK" Home Medications: dilTIAZem HCL [Diltiazem HCl] 1 cap PO BID 02/09/22 [History] Buspirone HCl 5 mg [Buspar 5 mg] 5 mg PO DAILY 02/20/22 [History] Hydroxyzine HCl 25 mg [Atarax 25 mg] 25 mg PO HS 05/03/22 [History] Hx Tetanus, Diphtheria Vaccination/Date Given: Yes Hx Influenza Vaccination/Date Given: Yes Hx Pneumococcal Vaccination/Date Given: No Travel Risk - International Travel Have you traveled outside of the country in past 3 weeks: No - Coronavirus Screening Are you exhibiting any of the following symptoms?: Yes Symptoms: Fever, Shortness of Breath, Headaches/Body Aches/Fatigue Close contact with a COVID-19 positive Pt in past 14-21 Days: No - Vaccine Status Have you recieved a Covid-19 vaccination: No - Review of Systems Constitutional: No Symptoms, No Fever, No Chills Eyes: No Symptoms Ears, Nose, & Throat: No Symptoms Respiratory: No Symptoms, No Cough, No Dyspnea Cardiac: No Symptoms, No Chest Pain, No Edema, No Syncope Abdominal/Gastrointestinal: No Symptoms, No Abdominal Pain, No Nausea, No Vomiting, No Diarrhea Genitourinary Symptoms: No Symptoms, No Dysuria Musculoskeletal: No Symptoms, No Back Pain, No Neck Pain Skin: No Symptoms, No Rash Neurological: No Symptoms, No Dizziness, No Focal Weakness, No Sensory Changes Psychological: No Symptoms Endocrine: No Symptoms Hematologic/Lymphatic: No Symptoms Immunological/Allergic: No Symptoms All Other Systems: Reviewed and Negative - Past Medical History Pertinent Past Medical History: Yes Neurological History: No Pertinent History ENT History: No Pertinent History Cardiac History: Other Respiratory History: No Pertinent History Endocrine Medical History: No Pertinent History Musculoskeletal History: No Pertinent History GI Medical History: No Pertinent History History: No Pertinent History Psycho-Social History: Anxiety, Bipolar, Panic Disorder Female Reproductive Disorders: Other Other Medical History: PCOS, tachycardia - Past Surgical History Past Surgical History: No Neuro Surgical History: No Pertinent History Cardiac: No Pertinent History Respiratory: No Pertinent History Gastrointestinal: No Pertinent History Genitourinary: No Pertinent History Musculoskeletal: No Pertinent History Female Surgical History: No Pertinent History - Social History Smoking Status: Never smoker Exposure to second hand smoke: Yes Alcohol Use: None Drug Use: none Patient Lives Alone: No Significant Family History: no pertinent family hx - Female History Hx Last Menstrual Period: current Hx Now: No - Nursing Vital Signs Nursing Vital Signs: Initial Vital Signs Temperature 98.4 F 06/11/23 21:10 Pulse Rate 97 H 06/11/23 21:10 Respiratory Rate 18 06/11/23 21:10 Blood Pressure 124/74 06/11/23 21:10 O2 Sat by Pulse Oximetry 99 06/11/23 21:10 Pain Scale Pain Intensity 0 - Physical Exam General Appearance: no apparent distress, alert Eye Exam: PERRL/EOMI, eyes nml inspection Ears, Nose, Throat Exam: normal ENT inspection, TMs normal, pharynx normal, moist mucous membranes Neck Exam: normal inspection, non-tender, supple, full range of motion Respiratory Exam: normal breath sounds, lungs clear, airway intact, No respiratory distress Cardiovascular Exam: regular rate/rhythm, normal heart sounds, normal peripheral pulses Gastrointestinal/Abdomen Exam: soft, normal bowel sounds, No tenderness, No mass Back Exam: normal inspection, normal range of motion, No CVA tenderness, No vertebral tenderness Extremity Exam: normal inspection, normal range of motion, pelvis stable Neurologic Exam: alert, oriented x 3, cooperative, normal mood/affect, nml cerebellar function, nml station & gait, sensation nml, No motor deficits Skin Exam: normal color, warm, dry, No rash Lymphatic Exam: No adenopathy SpO2 Interpretation: normal SpO2: 97 O2 Delivery: Room Air - Course Nursing assessment & vital signs reviewed: Yes - Progress Progress: improved Progress Note: Patient is 19-year-old female diagnosed with COVID on Friday. Patient had a transient episode of shortness of breath that brought her into the ED. Symptoms have since resolved. Physical exam unremarkable. Vitals within normal limits. Patient ambulated throughout our ED and maintained normal saturations. Patient has no complaints at this time. No indication for work-up or interventions at this time. We will discharge patient home as she has no symptoms. Patient agrees to follow-up with her primary care doctor within 48 hours for reevaluation. Patient will return to our ED if symptoms recur. Patient voices no other complaints. Patient is otherwise healthy. She has no significant past medical history. Portions of this note were created with voice recognition technology. There may be grammatical, spelling, punctuation or sound alike errors Complexity of problems addressed is low acute uncomplicated Complex of data reviewed and analyzed is none. No specialized testing ordered. Diagnosis based on history and physical exam. Risk of complication and or risk of morbidity/mortality of patient management is minimal. Medicinal interventions administered. Patient asymptomatic at time of arrival and discharged from our ED Time to discharge patient is approximately 10 minutes. Plan of care established for shared decision making. No social determinants of health present to impede follow-up. Portions of this note were created with voice recognition technology. There may be grammatical, spelling, punctuation or sound alike errors 06/11/23 22:31 Counseled pt/family regarding: diagnosis, need for follow-up - Departure Departure Disposition: Home Clinical Impression: COVID-19, Encounter for medical screening examination Condition: Stable Critical Care Time: No Referrals: JULISA SMITH NP [Primary Care Provider] - Follow up/PCP as directed Instructions: COVID-19 (DC) Additional Instructions: Discharge/Care Plan JIMY YOO was seen on 06/11/23 in the Emergency Room. The patient was counseled regarding Diagnosis,Lab results, Imaging studies, need for follow up and when to return to the Emergency Room. Prescriptions given: Discharge Note I have spoken with the patient and/or caregivers. I have explained the patient's condition, diagnosis and treatment plan based on the information available to me at this time. I have answered the patient's and/or caregiver's questions and addressed any concerns. The patient and/or caregivers have as good understanding of the patient's diagnosis, condition and treatment plan as can be expected at this point. The vital signs have been stable. The patient's condition is stable and appropriate for discharge from the emergency department. The patient will pursue further outpatient evaluation with the primary care physician or other designated or consulting physician as outlined in the discharge instructions. The patient and/or caregivers are agreeable to this plan of care and follow-up instructions have been explained in detail. The patient and/or caregivers have received these instruction. The patient/and or caregivers are aware that any significant change in condition or worsening of symptoms should prompt an immediate return to this or the closest emergency department or call 911.
== END 2023-06-11 22:30 | disposition home or self-care (01) ==
LOC: ED 21:08
DX: U07.1 COVID-19 (principal); R06.02 Shortness of breath; Z79.899 Other long term (current) drug therapy; Z28.310 Unvaccinated for COVID-19
CPT/HCPCS: 99281

== ENCOUNTER 2023-10-17 04:54 | Emergency (ER) | payer OTHER ==
[2023-10-17 05:04] VITALS: TEMP 98.5
[2023-10-17 06:02] LABS: Absolute Neutrophil Ct (ANC) 4.42 x10^3/uL (1.4-6.9); BASOPHIL % 0.4 % (0.0-0.4); Basophil (Absolute #) 0.03 x10^3/uL (0-0.4); Eosinophil % 2.5 % (0.00-5.0); Hematocrit 41.1 % (35-47); Hemoglobin 13.5 g/dL (12.0-16.0); IMMATURE GRAN # 0.01 x10^3u/L (0.00-0.03); IMMATURE GRAN % 0.1 % (0.00-0.4); Lymphocytes % 33.3 % (24.0-44.0); Mean Cell Volume 89.9 fL (78-100); Mean Corpuscular Hemoglobin 29.5 pg (26-32); Mean Corpuscular Hgb Concent. 32.8 g/dL (32-36); Mean Platelet Volume 8.8 fL (7.5-11.0); Monocyte (Absolute #) 0.75 x10^3/uL (0.0-1.3); Monocytes % 9.2 % (0.0-12.0); Neutrophil % 54.5 % (36.0-66.0); Platelet Count 396 x10^3/uL (150-450); Red Blood Count 4.57 x10^6/uL (4.1-5.4); Red Cell Distribution Width 12.3 % (11.5-14.0); White Blood Count 8.1 x10^3/uL (4.0-10.5)
[2023-10-17 06:04] VITALS: O2SAT 98
[2023-10-17 06:16] LABS: ALBUMIN 4.5 g/dL (3.5-5.0); ANION GAP 12.2 MEQ/L (5-15); BILIRUBIN,TOTAL 0.4 mg/dL (0.2-1.3); Calcium 9.8 mg/dL (8.4-10.2); Creatinine 1 0.53 mg/dL (0.52-1.04); EST GLOMERULAR FILTRATION RATE 128.3 ML/MIN; Potassium 3.4 mmol/L (3.5-5.1); Total Protein 7.8 g/dL (6.3-8.2)
[2023-10-17 06:21] LABS: HCG SERUM TEST NEGATIVE (NEGATIVE)
--- NOTE | 2023-10-17 06:30 | ERPHSYRPT ---
- History of Present Illness Time Seen by Provider: 10/17/23 05:22 Historian: patient Exam Limitations: no limitations Patient Subjective Stated Complaint: chest tightness like being squeezed Triage Nursing Assessment: pt ambulated into ER without diff, pt alert and oriented x4. Pt c/o chest tightness and describes it as someone squeezing her tight. This started around 4am this morning and woke her from sleep. Lungs clear, heart tones reg. No edema noted, pt's skin is w,p,d. Physician History: 28-year-old female with history of anxiety, nicotine product use presented in the ER with chief complaint of chest pain. Patient reports she woke up around 4 AM with squeezing sensation around/across chest mild to moderate without associated palpitations or shortness of breath. Lasted for almost an hour and started to improve on its own. No significant aggravating factors. Reports having similar symptoms in the past as well. 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 Denies any known sick contact. No cough or congestion reported. Aspirin Treatment Today: no aspirin today Allergies/Adverse Reactions: sulfamethoxazole [From Bactrim DS] Allergy (Severe, Verified 10/17/23 05:10) RAPID HEART RATE trimethoprim [From Bactrim DS] Allergy (Severe, Verified 10/17/23 05:10) RAPID HEART RATE diphenhydramine HCl [From Benadryl] Adverse Reaction (Intermediate, Verified 10/17/23 05:10) "OVER-REACTS AND ACTS DRUNK" Home Medications: dilTIAZem HCL [Diltiazem HCl] 1 cap PO BID 02/09/22 [History] Hydroxyzine HCl 25 mg [Atarax 25 mg] 25 mg PO HS 05/03/22 [History] Hx Tetanus, Diphtheria Vaccination/Date Given: Yes Hx Influenza Vaccination/Date Given: No Hx Pneumococcal Vaccination/Date Given: No Immunizations Up to Date: No Travel Risk - International Travel Have you traveled outside of the country in past 3 weeks: No - Coronavirus Screening Are you exhibiting any of the following symptoms?: No - Vaccine Status Have you recieved a Covid-19 vaccination: No - Review of Systems Constitutional: No Symptoms Eyes: No Symptoms Ears, Nose, & Throat: No Symptoms Respiratory: No Symptoms Cardiac: Chest Pain Abdominal/Gastrointestinal: No Symptoms Genitourinary Symptoms: No Symptoms Musculoskeletal: No Symptoms Skin: No Symptoms Neurological: No Symptoms Psychological: Anxiety Endocrine: No Symptoms Hematologic/Lymphatic: No Symptoms - Past Medical History Pertinent Past Medical History: Yes Neurological History: No Pertinent History ENT History: No Pertinent History Cardiac History: Other Respiratory History: No Pertinent History Endocrine Medical History: No Pertinent History Musculoskeletal History: No Pertinent History GI Medical History: No Pertinent History History: No Pertinent History Psycho-Social History: Anxiety, Bipolar, Panic Disorder Female Reproductive Disorders: Other Other Medical History: PCOS, tachycardia - Past Surgical History Past Surgical History: Yes Neuro Surgical History: No Pertinent History Cardiac: No Pertinent History Respiratory: No Pertinent History Gastrointestinal: No Pertinent History Genitourinary: No Pertinent History Musculoskeletal: No Pertinent History Female Surgical History: No Pertinent History Other Surgical History: wisdom teeth - Social History Smoking Status: Never smoker Exposure to second hand smoke: Yes Alcohol Use: None Drug Use: none Patient Lives Alone: No Significant Family History: no pertinent family hx - Female History Hx Last Menstrual Period: 09/27/23 Hx Now: No - Nursing Vital Signs Nursing Vital Signs: Initial Vital Signs Temperature 98.5 F 10/17/23 05:01 Pulse Rate 87 10/17/23 05:01 Respiratory Rate 18 10/17/23 05:01 Blood Pressure 130/84 10/17/23 05:01 O2 Sat by Pulse Oximetry 100 10/17/23 05:01 Pain Scale Pain Intensity 0 - Physical Exam General Appearance: no apparent distress, alert Eye Exam: PERRL/EOMI Ears, Nose, Throat Exam: normal ENT inspection Neck Exam: normal inspection Respiratory Exam: normal breath sounds, lungs clear Cardiovascular Exam: regular rate/rhythm, normal heart sounds Gastrointestinal/Abdomen Exam: soft, normal bowel sounds, No tenderness Extremity Exam: normal inspection, normal range of motion Neurologic Exam: alert, oriented x 3, cooperative, 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, No normal mood/affect (Anxious) Skin Exam: normal color SpO2 Interpretation: normal SpO2: 98 O2 Delivery: Room Air - Course EKG Interpreted by Me: RATE ([id number]), Sinus Rhythm, NORMAL AXIS, NORMAL INTERVALS, NORMAL QRS Ordered Tests: Active Orders 24 hr Category Date Time Status CHEST 1 VIEW (PORTABLE) Stat Exams 10/17/23 05:30 Taken CBC W DIFF Stat Lab 01/19/24 05:58 Completed CMP Stat Lab 10/17/23 05:58 Completed HCG QUALITATIVE, SERUM Stat Lab 10/17/23 05:58 Completed TROPONIN Q4H Lab 10/17/23 05:58 Completed TROPONIN Q4H Lab 10/17/23 09:30 Ordered TROPONIN Q4H Lab 10/17/23 13:30 Ordered TROPONIN Q4H Lab 10/17/23 17:30 Ordered TROPONIN Q4H Lab 10/17/23 21:30 Ordered Lab/Rad Data: Laboratory Result Diagrams 10/17/23 05:58 10/17/23 05:58 Laboratory Results 10/17/23 10/17/23 10/17/23 Range/Units 05:58 05:58 05:58 WBC (4.0-10.5) x10^3/uL RBC (4.1-5.4) x10^6/uL Hgb (12.0-16.0) g/dL Hct (35-47) % MCV (78-100) fL MCH (26-32) pg MCHC (32-36) g/dL RDW (11.5-14.0) % Plt Count (150-450) x10^3/uL MPV (7.5-11.0) fL Gran % (36.0-66.0) % Immature Gran % (Auto) (0.00-0.4) % Nucleat RBC Rel Count (0.00-0.1) % Eos # (Auto) (0-0.5) x10^3/uL Immature Gran # (Auto) (0.00-0.03) x10^3u/L Absolute Lymphs (auto) (1.0-4.6) x10^3/uL Absolute Monos (auto) (0.0-1.3) x10^3/uL Absolute Nucleated RBC (0.00-0.01) x10^3u/L Lymphocytes % (24.0-44.0) % Monocytes % (0.0-12.0) % Eosinophils % (0.00-5.0) % Basophils % (0.0-0.4) % Absolute Granulocytes (1.4-6.9) x10^3/uL Basophils # (0-0.4) x10^3/uL Sodium 139 (137-145) mmol/L Potassium 3.4 L (3.5-5.1) mmol/L Chloride 106 (98-107) mmol/L Carbon Dioxide 24 (22-30) mmol/L Anion Gap 12.2 (5-15) MEQ/L BUN 16 (7-17) mg/dL Creatinine 0.53 (0.52-1.04) mg/dL Estimated GFR 128.3 ML/MIN Glucose 100 (74-106) mg/dL Calcium 9.8 (8.4-10.2) mg/dL Total Bilirubin 0.40 (0.2-1.3) mg/dL AST 22 (14-36) U/L ALT 29 (0-35) U/L Alkaline Phosphatase 89 (38-126) U/L Troponin I < 0.012 (0.000-0.034) ng/mL Serum Total Protein 7.8 (6.3-8.2) g/dL Albumin 4.5 (3.5-5.0) g/dL Serum HCG, Qual NEGATIVE (NEGATIVE) 10/17/23 Range/Units 05:58 WBC 8.1 (4.0-10.5) x10^3/uL RBC 4.57 (4.1-5.4) x10^6/uL Hgb 13.5 (12.0-16.0) g/dL Hct 41.1 (35-47) % MCV 89.9 (78-100) fL MCH 29.5 (26-32) pg MCHC 32.8 (32-36) g/dL RDW 12.3 (11.5-14.0) % Plt Count 396 (150-450) x10^3/uL MPV 8.8 (7.5-11.0) fL Gran % 54.5 (36.0-66.0) % Immature Gran % (Auto) 0.1 (0.00-0.4) % Nucleat RBC Rel Count 0.0 (0.00-0.1) % Eos # (Auto) 0.20 (0-0.5) x10^3/uL Immature Gran # (Auto) 0.01 (0.00-0.03) x10^3u/L Absolute Lymphs (auto) 2.70 (1.0-4.6) x10^3/uL Absolute Monos (auto) 0.75 (0.0-1.3) x10^3/uL Absolute Nucleated RBC 0.00 (0.00-0.01) x10^3u/L Lymphocytes % 33.3 (24.0-44.0) % Monocytes % 9.2 (0.0-12.0) % Eosinophils % 2.5 (0.00-5.0) % Basophils % 0.4 (0.0-0.4) % Absolute Granulocytes 4.42 (1.4-6.9) x10^3/uL Basophils # 0.03 (0-0.4) x10^3/uL Sodium (137-145) mmol/L Potassium (3.5-5.1) mmol/L Chloride (98-107) mmol/L Carbon Dioxide (22-30) mmol/L Anion Gap (5-15) MEQ/L BUN (7-17) mg/dL Creatinine (0.52-1.04) mg/dL Estimated GFR ML/MIN Glucose (74-106) mg/dL Calcium (8.4-10.2) mg/dL Total Bilirubin (0.2-1.3) mg/dL AST (14-36) U/L ALT (0-35) U/L Alkaline Phosphatase (38-126) U/L Troponin I (0.000-0.034) ng/mL Serum Total Protein (6.3-8.2) g/dL Albumin (3.5-5.0) g/dL Serum HCG, Qual (NEGATIVE) - Progress Progress: improved, re-examined Air Movement: good Progress Note: 10/17/23 06:49 28-year-old is evaluated for chest pain. EKG is normal sinus rhythm. No acute ischemic changes on the EKG. Chest x-ray negative for any acute cardiopulmonary findings reviewed by me. Patient symptoms are improving on presentation. On reevaluation she is symptom-free. Has negative troponin. Unremarkable chemistries. She is PERC negative. She has low heart score and her pain is not very typical of cardiac, do not think she needs second troponin. She has been discharged with outpatient follow-up with primary care and keep appointment with cardiology. Recommended taking Tylenol as needed. Discussed signs symptoms of worsening needing return to ER which she seems understanding. Stable for discharge. Blood Culture(s) Obtained: No Antibiotics given: No Counseled pt/family regarding: lab results, diagnosis, need for follow-up, rad results Medical Desision Making - Independent Historian Additional History obtained from: Mother - Diagnostic Testing Diagnostic test were ordered, analyzed, and reviewed by me: Yes Radiological Interpretation: Interpreted by me, Reviewed by me - Departure Departure Disposition: Home Clinical Impression: Atypical chest pain Condition: Stable Critical Care Time: No Referrals: JULISA SMITH NP [Primary Care Provider] - Follow up with PCP 1 day Instructions: Angina (DC), Chest Pain (DC) Additional Instructions: Take Tylenol as needed. Keep appointment with cardiology. Follow-up with primary care for reevaluation. Return to ER if again having chest pain palpitations or shortness of breath. Do not vape.
[2023-10-17 07:09] VITALS: BP 113/77; PULSE 71; RESP 18
--- NOTE | 2023-10-17 09:14 | XRAY ---
Indication: Chest pain. Comparison: September 02, 2022 Portable chest again demonstrates normal heart, lungs, and bony thorax.
== END 2023-10-17 07:10 | disposition home or self-care (01) ==
LOC: ED 04:54
DX: R07.89 Other chest pain (principal); Z79.899 Other long term (current) drug therapy; Z28.310 Unvaccinated for COVID-19
CPT/HCPCS: 36415; 71045; 80053; 84484; 84703; 85025; 99283

== ENCOUNTER 2024-03-03 13:15 | Emergency (ER) | payer MEDICAID, OTHER ==
[2024-03-03 13:54] VITALS: O2SAT 97
[2024-03-03] MEDS ORDERED: Sodium Chloride 0.9% 1000 ML 1,000 ML ONE (14:30)
[2024-03-03 14:31] LABS: Absolute Neutrophil Ct (ANC) 4.96 x10^3/uL (1.4-6.9); BASOPHIL % 0.5 % (0.0-0.4); Basophil (Absolute #) 0.04 x10^3/uL (0-0.4); Eosinophil % 1.4 % (0.00-5.0); Eosinophil (Absolute #) 0.12 x10^3/uL (0-0.5); Hematocrit 43.3 % (35-47); Hemoglobin 14.4 g/dL (12.0-16.0); IMMATURE GRAN # 0.02 x10^3u/L (0.00-0.03); IMMATURE GRAN % 0.2 % (0.00-0.4); Lymphocyte (Absolute #) 2.96 x10^3/uL (1.0-4.6); Lymphocytes % 33.7 % (24.0-44.0); Mean Cell Volume 89.1 fL (78-100); Mean Corpuscular Hemoglobin 29.6 pg (26-32); Mean Corpuscular Hgb Concent. 33.3 g/dL (32-36); Mean Platelet Volume 10.2 fL (7.5-11.0); Monocyte (Absolute #) 0.69 x10^3/uL (0.0-1.3); Monocytes % 7.8 % (0.0-12.0); Neutrophil % 56.4 % (36.0-66.0); Platelet Count 378 x10^3/uL (150-450); Red Blood Count 4.86 x10^6/uL (4.1-5.4); Red Cell Distribution Width 12.7 % (11.5-14.0); White Blood Count 8.8 x10^3/uL (4.0-10.5)
[2024-03-03] MEDS: Sodium Chloride 0.9% 1000 ML 1,000 ML IV STA (14:31)
[2024-03-03 14:34] LABS: HCG URINE TEST NEGATIVE (NEGATIVE)
[2024-03-03 14:38] LABS: Appearance Clear (Clear); Bacteria None Seen /HPF (None Seen); Bilirubin Negative (Negative); Blood Negative (Negative); Epithelial Cells Rare /HPF (None Seen); Glucose, Urine Negative (Negative); Hyaline Casts NONE SEEN /LPF (0-2); Ketones 15 (Negative); Leukocyte Esterase Trace (Negative); Nitrite Negative (Negative); Ph 6.5 (4.6-8.0); Protein,Urine Dip Negative (Negative); RBC 0-2 /HPF (0-5); Specific Gravity 1.025 (1.005-1.030); WBC 0-2 /HPF (0-5)
[2024-03-03 14:40] LABS: ADD URINE CULTURE? NO (NO)
[2024-03-03 14:45] LABS: ALBUMIN 4.7 g/dL (3.5-5.0); ANION GAP 13.5 MEQ/L (5-15); BILIRUBIN,TOTAL 0.5 mg/dL (0.2-1.3); Calcium 9.5 mg/dL (8.4-10.2); Creatinine 1 0.56 mg/dL (0.52-1.04); EST GLOMERULAR FILTRATION RATE 126.6 ML/MIN; Potassium 3.7 mmol/L (3.5-5.1)
--- NOTE | 2024-03-03 15:37 | XRAY ---
Indication: Weakness. Comparison: October 17, 2023 Portable chest again demonstrates normal heart, lungs, and bony thorax.
--- NOTE | 2024-03-03 15:43 | ERPHSYRPT ---
- History of Present Illness Time Seen by Provider: 03/03/24 13:39 Source: patient Exam Limitations: no limitations Patient Subjective Stated Complaint: C/O intermittent dizziness and fatigue for the past week. Triage Nursing Assessment: Patient ambulated back to ER without difficulties. Skin tone normal. No SOB. MATHIS WNL. Patient is alert and oriented. Physician History: 28-year-old female with history of seasonal allergy, tobacco vaping presented in the ER with complains of generalized weakness fatigue and tiredness going on for the last couple of weeks with progressive worsening. Patient reports loss of appetite, decreased oral intake. Denies any chest pain palpitations or shortness of breath. No abdominal pain nausea vomiting or diarrhea. No fever or chills reported. Patient reports having no UTI symptoms. Denies any known sick contact. Allergies/Adverse Reactions: sulfamethoxazole [From Bactrim DS] Allergy (Severe, Verified 03/03/24 13:38) RAPID HEART RATE trimethoprim [From Bactrim DS] Allergy (Severe, Verified 03/03/24 13:38) RAPID HEART RATE diphenhydramine HCl [From Benadryl] Adverse Reaction (Intermediate, Verified 03/03/24 13:38) "OVER-REACTS AND ACTS DRUNK" Home Medications: Hydroxyzine HCl 25 mg [Atarax 25 mg] 25 mg PO HS 05/03/22 [History] Montelukast Sodium 10 mg [Singulair 10 MG] 10 mg PO DAILY 03/03/24 [History] Hx Tetanus, Diphtheria Vaccination/Date Given: Yes Hx Influenza Vaccination/Date Given: No Hx Pneumococcal Vaccination/Date Given: No Immunizations Up to Date: Yes Travel Risk - International Travel Have you traveled outside of the country in past 3 weeks: No - Emerging Infectious Disease Are you exhibiting symptoms associated with any current EIDs: No - Review of Systems Constitutional: Fatigue, Weakness Eyes: No Symptoms Ears, Nose, & Throat: No Symptoms Respiratory: No Symptoms Cardiac: No Symptoms Abdominal/Gastrointestinal: No Symptoms Genitourinary Symptoms: No Symptoms Musculoskeletal: Myalgias Skin: No Symptoms Neurological: No Symptoms Endocrine: No Symptoms Hematologic/Lymphatic: No Symptoms Immunological/Allergic: No Symptoms - Past Medical History Pertinent Past Medical History: Yes Neurological History: No Pertinent History ENT History: No Pertinent History Cardiac History: Other Respiratory History: No Pertinent History Endocrine Medical History: No Pertinent History Musculoskeletal History: No Pertinent History GI Medical History: No Pertinent History History: No Pertinent History Psycho-Social History: Anxiety, Bipolar, Panic Disorder Female Reproductive Disorders: Other Other Medical History: PCOS, tachycardia, POTS. 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 - Past Surgical History Past Surgical History: Yes Neuro Surgical History: No Pertinent History Cardiac: No Pertinent History Respiratory: No Pertinent History Gastrointestinal: No Pertinent History Genitourinary: No Pertinent History Musculoskeletal: No Pertinent History Female Surgical History: No Pertinent History Other Surgical History: wisdom teeth Significant Family History: no pertinent family hx - Female History Hx Last Menstrual Period: 02/14/24 Hx Now: (unkn) - Social History Smoking Status: Never smoker Exposure to second hand smoke: No Alcohol Use: None Drug Use: none Patient Lives Alone: No - Social Determinants of Health Will the patient participate in the screening: Yes Do you worry about a steady place to live?: No Do you have any problems with any of the following?: No known problems In the past 12 months,have you had to go without utilities?: No Transportation Issues: No Has anyone in your support network made you feel unsafe?: No Have you or anyone in your house had to go without enough: No - Nursing Vital Signs Nursing Vital Signs: Initial Vital Signs Pulse Rate 83 03/03/24 13:37 Respiratory Rate 15 03/03/24 13:37 Blood Pressure 140/95 03/03/24 13:37 O2 Sat by Pulse Oximetry 97 03/03/24 13:37 Pain Scale Pain Intensity 0 - Physical Exam General Appearance: no apparent distress, alert Eye Exam: PERRL/EOMI Ears, Nose, Throat Exam: normal ENT inspection Neck Exam: normal inspection, supple, full range of motion Respiratory Exam: normal breath sounds, lungs clear Cardiovascular Exam: regular rate/rhythm, normal heart sounds Gastrointestinal/Abdomen Exam: soft, normal bowel sounds, No tenderness Back Exam: normal inspection, normal range of motion Extremity Exam: normal inspection, normal range of motion Neurologic Exam: alert, oriented x 3, 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, 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 Skin Exam: normal color SpO2 Interpretation: normal SpO2: 97 O2 Delivery: Room Air Ordered Tests: Active Orders 24 hr Category Date Time Status EKG-ER Only STAT Care 03/03/24 14:01 Active IV Insertion STAT Care 03/03/24 14:01 Active Orthostatic Vital Signs STAT Care 03/03/24 13:38 Active CHEST 1 VIEW (PORTABLE) Stat Exams 03/03/24 14:02 Completed BLOOD CULTURE Stat Lab 03/03/24 14:20 Received CBC W DIFF Stat Lab 03/03/24 14:10 Completed CMP Stat Lab 03/03/24 14:10 Completed HCG QUALITATIVE, URINE Stat Lab 03/03/24 14:30 Completed Lactic Acid Stat Lab 03/03/24 14:09 Completed TROPONIN Q4H Lab 03/03/24 14:10 Completed TROPONIN Q4H Lab 03/03/24 18:15 Ordered TROPONIN Q4H Lab 03/03/24 22:15 Ordered UA W/RFX UR CULTURE Stat Lab 03/03/24 14:09 Completed Medication Summary Discontinued Medications Generic Name Dose Route Start Last Admin Trade Name Freq PRN Reason Stop Dose Admin Sodium Chloride 1,000 mls @ 999 mls/hr 03/03/24 14:01 03/03/24 15:37 Sodium Chloride 0.9% 1000 Ml IV 03/03/24 15:01 Infused .Q1H1M STA Infusion Sodium Chloride Confirm 03/03/24 14:30 Sodium Chloride 0.9% 1000 Ml Administered 03/03/24 14:31 Dose 1,000 mls @ ud .ROUTE .STK-MED ONE Lab/Rad Data: Laboratory Result Diagrams 03/03/24 14:10 03/03/24 14:10 Laboratory Results 03/03/24 03/03/24 03/03/24 Range/Units 14:30 14:10 14:10 WBC (4.0-10.5) x10^3/uL RBC (4.1-5.4) x10^6/uL Hgb (12.0-16.0) g/dL Hct (35-47) % MCV (78-100) fL MCH (26-32) pg MCHC (32-36) g/dL RDW (11.5-14.0) % Plt Count (150-450) x10^3/uL MPV (7.5-11.0) fL Gran % (36.0-66.0) % Immature Gran % (Auto) (0.00-0.4) % Nucleat RBC Rel Count (0.00-0.1) % Eos # (Auto) (0-0.5) x10^3/uL Immature Gran # (Auto) (0.00-0.03) x10^3u/L Absolute Lymphs (auto) (1.0-4.6) x10^3/uL Absolute Monos (auto) (0.0-1.3) x10^3/uL Absolute Nucleated RBC (0.00-0.01) x10^3u/L Lymphocytes % (24.0-44.0) % Monocytes % (0.0-12.0) % Eosinophils % (0.00-5.0) % Basophils % (0.0-0.4) % Absolute Granulocytes (1.4-6.9) x10^3/uL Basophils # (0-0.4) x10^3/uL Sodium 141 (135-145) mmol/L Potassium 3.7 (3.5-5.1) mmol/L Chloride 110 H (98-107) mmol/L Carbon Dioxide 21 L (22-30) mmol/L Anion Gap 13.5 (5-15) MEQ/L BUN 12 (7-17) mg/dL Creatinine 0.56 (0.52-1.04) mg/dL Estimated GFR 126.6 ML/MIN Glucose 96 (74-106) mg/dL Lactic Acid (0.4-2.0) Calcium 9.5 (8.4-10.2) mg/dL Total Bilirubin 0.50 (0.2-1.3) mg/dL AST 21 (14-36) U/L ALT 26 (0-35) U/L Alkaline Phosphatase 75 (38-126) U/L Troponin I < 0.012 (0.000-0.033) ng/mL Serum Total Protein 8.0 (6.3-8.2) g/dL Albumin 4.7 (3.5-5.0) g/dL Urine Color (Yellow) Urine Appearance (Clear) Urine pH (4.6-8.0) Ur Specific [place] (1.005-1.030) Urine Protein (Negative) Urine Glucose (UA) (Negative) mg/dL Urine Ketones (Negative) Urine Blood (Negative) Urine Nitrite (Negative) Urine Bilirubin (Negative) Urine Urobilinogen (0.2) mg/dL Ur Leukocyte Esterase (Negative) U Hyaline Cast (Auto) (0-2) /LPF Urine Microscopic RBC (0-5) /HPF Urine Microscopic WBC (0-5) /HPF Ur Epithelial Cells (None Seen) /HPF Urine Bacteria (None Seen) /HPF Urine Culture Reflexed (NO) Urine HCG, Qual NEGATIVE (NEGATIVE) 03/03/24 03/03/24 03/03/24 Range/Units 14:10 14:09 14:09 WBC 8.8 (4.0-10.5) x10^3/uL RBC 4.86 (4.1-5.4) x10^6/uL Hgb 14.4 (12.0-16.0) g/dL Hct 43.3 (35-47) % MCV 89.1 (78-100) fL MCH 29.6 (26-32) pg MCHC 33.3 (32-36) g/dL RDW 12.7 (11.5-14.0) % Plt Count 378 (150-450) x10^3/uL MPV 10.2 (7.5-11.0) fL Gran % 56.4 (36.0-66.0) % Immature Gran % (Auto) 0.2 (0.00-0.4) % Nucleat RBC Rel Count 0.0 (0.00-0.1) % Eos # (Auto) 0.12 (0-0.5) x10^3/uL Immature Gran # (Auto) 0.02 (0.00-0.03) x10^3u/L Absolute Lymphs (auto) 2.96 (1.0-4.6) x10^3/uL Absolute Monos (auto) 0.69 (0.0-1.3) x10^3/uL Absolute Nucleated RBC 0.00 (0.00-0.01) x10^3u/L Lymphocytes % 33.7 (24.0-44.0) % Monocytes % 7.8 (0.0-12.0) % Eosinophils % 1.4 (0.00-5.0) % Basophils % 0.5 (0.0-0.4) % Absolute Granulocytes 4.96 (1.4-6.9) x10^3/uL Basophils # 0.04 (0-0.4) x10^3/uL Sodium (135-145) mmol/L Potassium (3.5-5.1) mmol/L Chloride (98-107) mmol/L Carbon Dioxide (22-30) mmol/L Anion Gap (5-15) MEQ/L BUN (7-17) mg/dL Creatinine (0.52-1.04) mg/dL Estimated GFR ML/MIN Glucose (74-106) mg/dL Lactic Acid 2.3 H (0.4-2.0) Calcium (8.4-10.2) mg/dL Total Bilirubin (0.2-1.3) mg/dL AST (14-36) U/L ALT (0-35) U/L Alkaline Phosphatase (38-126) U/L Troponin I (0.000-0.033) ng/mL Serum Total Protein (6.3-8.2) g/dL Albumin (3.5-5.0) g/dL Urine Color Yellow (Yellow) Urine Appearance Clear (Clear) Urine pH 6.5 (4.6-8.0) Ur Specific [place] 1.025 (1.005-1.030) Urine Protein Negative (Negative) Urine Glucose (UA) Negative (Negative) mg/dL Urine Ketones 15 A (Negative) Urine Blood Negative (Negative) Urine Nitrite Negative (Negative) Urine Bilirubin Negative (Negative) Urine Urobilinogen 1.0 A (0.2) mg/dL Ur Leukocyte Esterase Trace A (Negative) U Hyaline Cast (Auto) NONE SEEN (0-2) /LPF Urine Microscopic RBC 0-2 (0-5) /HPF Urine Microscopic WBC 0-2 (0-5) /HPF Ur Epithelial Cells Rare (None Seen) /HPF Urine Bacteria None Seen (None Seen) /HPF Urine Culture Reflexed NO (NO) Urine HCG, Qual (NEGATIVE) - Progress Progress: improved Progress Note: 03/03/24 15:59 28-year-old is evaluated in the ER for generalized weakness fatigue tiredness, decreased oral intake. Patient has subjective complaint but no objective findings. Given fluids, feeling better on reevaluation. Workup showed normal white count, fairly unremarkable chemistries except for mildly low bicarb and lactate of 2.3. No definitive UTI. Chest x-ray negative. EKG is normal sinus rhythm with no acute ischemic changes. Patient could have some viral etiology symptoms, recommended supportive care and outpatient follow-up. Discussed signs symptoms of worsening needing return to ER which she seems understanding. Stable for discharge. Counseled pt/family regarding: lab results, diagnosis, need for follow-up, rad results Medical Desision Making - Diagnostic Testing Diagnostic test were ordered, analyzed, and reviewed by me: Yes Radiological Interpretation: Reviewed by me - Departure Departure Disposition: Home Clinical Impression: General weakness Condition: Stable Critical Care Time: No Referrals: JULISA SMITH NP [Primary Care Provider] - Follow up with PCP 1 day Instructions: Weakness ED Additional Instructions: Drink plenty of fluids. Take Tylenol as needed for aches and pains. Follow-up with primary care for reevaluation. Return to ER for any worsening.
[2024-03-03 16:13] VITALS: BP 116/56; PULSE 73; RESP 16
== END 2024-03-03 16:16 | disposition home or self-care (01) ==
LOC: ED 13:15
DX: R53.1 Weakness (principal); R53.83 Other fatigue; Z79.899 Other long term (current) drug therapy
CPT/HCPCS: 36000; 36415; 71045; 80053; 81001; 81025; 83605; 84484; 85025; 87040; 93005; 99284